=== PATIENT | female | born 1965 | race Caucasian/White ===

== ENCOUNTER 2019-01-20 14:39 | Inpatient (IN) | payer OTHER ==
[2019-01-20] VITALS (10 sets, daily range): BP systolic 94–116; BP diastolic 56–71; O2SAT 97
[~2019-01-20] VITALS: Ht 160 cm; Wt 126.8 kg
[~2019-01-20 14:39] MED LIST: ANOR1AER PO; BASA100I SC; BENA2CRE3 EXT; BUSP5TA PO; CETI10CH PO; CETI5SOL3 PO; CHOL50002 PO; CRES20TA2 PO; EYE; FAMO20TA PO; FISH1000 PO; FLON1SPR; FURO40TA2 PO; GLUC1CAP10 PO; INSUHUMDS SC; IPRA0.00 INH; MUCI60TA7 PO; MULTCAP PO; PROAAER10 INH; PURE500C5 PO; RANI150T PO; [UNRECOGNIZED DRUG - OTHER]; [UNRECOGNIZED DRUG - OTHER]
[2019-01-20 18:44] LABS: ABG BASE EXCESS -0.7 (-2.0-2.0); ABG HCO3 27.9 MEQ/L (22.0-26.0); ABG PARTIAL PRESSURE O2 62.4 mmHg (75.0-100.0); ABG STANDARD HCO3 23.7 MEQ/L (22.0-26.0); ABG TOTAL CO2 29.8 MEQ/L (22.0-29.0); ABG pH (ARTERIAL) 7.256 UNITS (7.350-7.450)
[2019-01-20 18:48] LABS: ABG PARTIAL PRESSURE CO2 64.1 mmHg (35.0-45.0)
[2019-01-20 19:11] LABS: BASO % 0.1 % (0.0-1.0); HEMATOCRIT 44.6 % (36.0-47.0); HEMOGLOBIN 12.9 g/dl (12.0-15.5); LYMPH % 1.6 % (24.0-44.0); MEAN CORPUSCULAR HEMOGLOBIN 22.6 pg (27.0-33.0); MEAN CORPUSCULAR HGB CONC 28.9 g/dl (32.0-36.5); MEAN CORPUSCULAR VOLUME 78.2 fl (80.0-96.0); MONO # 0.3 10^3/uL (0.0-0.8); MONO % 2.1 % (0.0-5.0); NEUTROPHILS # 13.5 10^3/uL (1.5-8.5); NEUTROPHILS % 95.6 % (36.0-66.0); PLATELET COUNT, AUTOMATED 102 10^3/uL (150-450); WHITE BLOOD COUNT 14.2 10^3/uL (4.0-10.0)
[2019-01-20] MEDS ORDERED: ACET1TAB55 PO (19:11)
[2019-01-20] MEDS ORDERED: [UNRECOGNIZED DRUG - CODE] IV (19:11)
[2019-01-20] MEDS ORDERED: FURO20TA2 PO (19:11)
[2019-01-20] MEDS ORDERED: NICO1DIS11 TD (19:11)
[2019-01-20] MEDS ORDERED: OXYB5TAB10 PO (19:11)
[2019-01-20] MEDS ORDERED: ALL10TAB29 PO (19:11)
[2019-01-20] MEDS ORDERED: LORA2CON5 PO (19:11)
[2019-01-20] MEDS ORDERED: ADME100I2 SC (19:11)
[2019-01-20] MEDS ORDERED: VENTAER INH (19:11)
[2019-01-20] MEDS ORDERED: BASA100I SC (19:11)
[2019-01-20] MEDS ORDERED: METH125VL IM (19:11)
[2019-01-20] MEDS ORDERED: XIID5DRO OU (19:11)
[2019-01-20] MEDS ORDERED: COMMENTS (19:14)
[2019-01-20] MEDS ORDERED: GLUCAGON FOR INJ 1 MG VIAL (J1610) SC PRN ×2 (19:15→20:15)
[2019-01-20] MEDS ORDERED: GLUCOSE 4 GM CHEW TABLET PO PRN ×2 (19:15→20:15)
[2019-01-20] MEDS ORDERED: DEXTROSE 50% 50 ML SYRINGE IV PRN ×2 (19:15→20:15)
[2019-01-20] MEDS ORDERED: ACETAMINOPHEN TAB 650MG DOSE (2X325MG) PO PRN (19:15)
[2019-01-20 19:28] LABS: INR 1.3; PROTHROMBIN TIME 15.9 SECONDS (11.8-14.0)
[2019-01-20 19:29] LABS: ALBUMIN 2.2 GM/DL (3.2-5.2); CALCIUM LEVEL 7.8 MG/DL (8.5-10.1); CREATININE FOR GFR 3.99 MG/DL (0.55-1.30); GLOMERULAR FILTRATION RATE 12.4 (>51); PHOSPHORUS LEVEL 5.1 MG/DL (2.5-4.9); POTASSIUM SERUM 5.5 MEQ/L (3.5-5.1)
[2019-01-20 19:29] LABS: LYMPH # 0.2 10^3/uL (1.5-5.0)
[2019-01-20 19:34] LABS: MAGNESIUM LEVEL 2.2 MG/DL (1.8-2.4)
--- NOTE | 2019-01-20 19:57 | REP ---
Portable chest, single AP view, the patient semi upright, 07:36 p.m.: There are no comparisons. There are confluent nodular densities throughout the lung liriano bilaterally. Cardiac size is enlarged. The queenie appear enlarged. Mediastinum and skeletal structures are unremarkable. Electronically Signed by Owen Chew MD 01/20/2019 07:48 P
[2019-01-20 20:04] LABS: ABG BASE EXCESS -1.3 (-2.0-2.0); ABG HCO3 25.2 MEQ/L (22.0-26.0); ABG PARTIAL PRESSURE CO2 49.5 mmHg (35.0-45.0); ABG PARTIAL PRESSURE O2 88.8 mmHg (75.0-100.0); ABG STANDARD HCO3 23.4 MEQ/L (22.0-26.0); ABG TOTAL CO2 26.7 MEQ/L (22.0-29.0); ABG pH (ARTERIAL) 7.325 UNITS (7.350-7.450)
[2019-01-20] MEDS: NS 1,000 ML IV SCH (20:11)
[2019-01-20] MEDS ORDERED: VANCOMYCIN HCL 1,000 MG, VIAL MATE ADAPTER 1 EACH in D5W 250 ML IV ONE (20:30)
--- NOTE | 2019-01-20 20:55 | HPEPDOC ---
General Date of Admission Jan 20, 2019 at 18:12 Date of Service: Jan 20, [address] Moreno of the nephrology service. Chief Complaint The patient is a 53-year-old female admitted with a reason for visit of Fluid Overload, Hyperkalemia. Source: Old records Exam Limitations: Clinical conditions Timing/Duration: Getting worse, This afternoon Severity: Severe Associated Symptoms: Unobtainable History of Present Illness This is a 53-year-old female who presented to an [facility]. She has a history of lvc-qbrlkfb-flycsaofa diabetes mellitus and chronic kidney disease. She had undergone evaluation by renal biopsy earlier this week. She [facility] the [facility] complaining of severe pain. She knows she also had some diarrhea. She had not taken her medications for several days. She was noted to have desaturations down to 63%. She was placed on O2 at 4 L/m and O2 sat were reported stabilized at 92%. Patient was found to have hyperkalemia with a serum potassium of 6. She was noted to have worsening renal function with a creatinine of 4; creatinine had been 1.8 in October. Brain natriuretic peptide was reported elevated up to 92,000. [facility] to our facility. Patient was accepted for placement into ICU. Home Medications Scheduled Amiodarone HCl (Amiodarone HCl) 50 Mg/1 Ml Vial, 150 MG IV DAILY, (Reported) GIVEN AT [facility] Ascorbic Acid (Vitamin C) 500 Mg Capsule.er, 500 MG PO DAILY, (Reported) Buspirone HCl (Buspirone HCl) 5 Mg Tablet, 5 MG PO BID, (Reported) Cetirizine HCl (Cetirizine HCl) 10 Mg Tablet, 10 MG PO DAILY, (Reported) Cholecalciferol (Vitamin D3) (Vitamin D3) 5,000 Unit Capsule, 5,000 UNIT PO DA LUISANA, (Reported) Famotidine (Famotidine) 20 Mg Tablet, 20 MG PO DAILY, (Reported) Furosemide (Furosemide) 20 Mg Tablet, 40 MG PO BID, (Reported) Gluc Kimble/Chondro Kimble A/Vit C/Mn (Glucosamine-Chondroitin Cap) 1 Each Capsule, 1 CAP PO DAILY, (Reported) Guaifenesin/Pseudoephedrne HCl (Mucinex D ER 600-60 mg Tablet) 1 Each Tab.er.12h, 1 TAB PO DAILY, (Reported) Insulin Glargine,Hum.rec.anlog (Basaglar Kwikpen U-100) 100 Unit/1 Ml Insuln.pen, 80 UNIT SC DAILY, (Reported) Insulin Glargine,Hum.rec.anlog (Basaglar Kwikpen U-100) 100 Unit/1 Ml Insuln.pen, 20 UNIT SC QPM, (Reported) Insulin Lispro (Admelog Solostar) 100 Unit/1 Ml Insuln.pen, 10 UNIT SC ACHS, (Reported) Lifitegrast (Xiidra) 5% Droperette, 1 DROP OU DAILY, (Reported) Lorazepam (Lorazepam) 2 Mg/1 Ml Oral.conc, 1 MG PO DAILY, (Reported) GIVEN ONE DOSE OF 1MG AT [facility] Methylprednisolone (Solu-Medrol 125 mg Vial) 125 Mg/2 Ml Vial, 125 MG IM ONCE, (Reported) GIVEN AT [facility] Multivitamin (Multivitamins) 1 Each Capsule, 1 CAP PO DAILY, (Reported) Nicotine (Nicotine Patch) 21 Mg/24 Hr Patch.td24, 1 PATCH TD DAILY, (Reported) Oxybutynin Chloride (Oxybutynin Chloride) 5 Mg Tablet, 5 MG PO BID, (Reported) Ranitidine HCl (Ranitidine HCl) 150 Mg Tablet, 1 TAB PO DAILY, (Reported) Rosuvastatin Calcium (Crestor) 20 Mg Tablet, 20 MG PO DAILY, (Reported) Umeclidinium Brm/Vilanterol Tr (Anoro Ellipta 62.5-25 Mcg INH) 1 Each Blst.w.dev, 1 INH PO DAILY, (Reported) Scheduled PRN Acetaminophen (Acetaminophen) 325 Mg Tablet, 650 MG PO Q4H PRN for PAIN / FEVER, (Reported) GIVEN AT [facility] Albuterol Sulfate (Ventolin Hfa) 18 Gm Hfa.aer.ad, 2 PUFF INH Q4H PRN for wheezing, (Reported) Fluticasone Propionate (Flonase Allergy Relief) 9.9 Ml [place].susp, 50 MCG NA for PRN, (Reported) Ipratropium/Albuterol Sulfate (Iprat-Albut 0.5-3(2.5) mg/3 ml) 3 Ml Ampul.neb, 1 VIAL INH Q4H PRN for SOB/WHEEZING, (Reported) GIVEN AT [facility] Miscellaneous Medications [Comments] , (Reported) MED REC DONE WITH TRANSFER PAPERWORK WELL EXTRENAL MED HISTORY. I CALLED AND TALKED TO THE NURSE AT [facility] HE SAID THAT SHE TOLD THE ER THERE SHE HADN'T TAKEN ANY MEDICATIONS BEFORE GOING IN. Allergies Coded Allergies: Penicillins (Verified Allergy, Intermediate, RASH, 01/20/19) Sulfa (Sulfonamide Antibiotics) (Verified Allergy, Intermediate, RASH, 01/20/19) amoxicillin (Verified Allergy, Intermediate, RASH, 01/20/19) ampicillin (Verified Allergy, Intermediate, RASH, 01/20/19) aspirin (Verified Allergy, Intermediate, RASH, 01/20/19) cefuroxime (Verified Allergy, Intermediate, RASH, 01/20/19) erythromycin base (Verified Allergy, Intermediate, RASH, 01/20/19) latex (Verified Allergy, Intermediate, RASH, 01/20/19) tetracycline (Verified Allergy, Intermediate, RASH, 01/20/19) Past Medical History Medical History Medical record review. Patient has history of tre-pzildlu-sjoueines diabetes mellitus, hypertension, dyslipidemia, polycythemia vera, COPD, chronic kidney disease, at least stage III, depression, nephrotic syndrome, obstructive sleep apnea. Surgical History Surgical history is not available in the medical record and we were unable to obtain it from the patient secondary to the patient being obtunded. Family History Family history is unobtainable from the patient or from the medical record due to the patient's diminished condition. Social History * Smoker: current smoker (by report, the patient is an active smoker) Alcohol: other (alcohol use is unknown) Drugs: other (drug use or drug use history is unknown) Other elements of her social history are unknown at this time A-FIB/CHADSVASC A-FIB History Current/History of A-Fib/PAF?: No Current PO Anticoag Therapy: No Review of Systems Other systems Review of systems is unobtainable at this time as the patient is obtunded. Also no family members available at this time. Physical Examination General Exam: Positive: Severe Distress, Other (the patient is obtunded and minimally responsive) Eye Exam: Positive: PERRLA, Other Eye Symptoms (she has remarkable scleral injection) ENT Exam: Positive: Atraumatic, Nares Patent, Other ENT (mucous membranes are dry from mouth breathing) Neck Exam: Positive: Supple (supple to passive motion); Negative: JVD, thyromegaly, +2 carotid pulse wo bruit, Lymphadenopathy, Other Chest Exam: Positive: Diminished, Other (the patient has an obstructive breathing pattern consistent with obstructive sleep apnea) Heart Exam: Positive: Rate Normal, Normal S1, Normal S2 Telemetry: Positive: No significant arrhythmia Abdomen Exam: Positive: Normal bowel sounds, Soft, Other (the patient has morbid central obesity); Negative: Tenderness, Hepatospenomegaly Extremity Exam: Positive: Edema (remarkably, the patient does not have significant pedal or leg edema, pedal pulses are readily palpable); Negative: Clubbing, Cyanosis, Normal pulses, Tenderness, Swelling, Other Skin Exam: Positive: Nl turgor and temperature; Negative: Breakdown, Lesion Neuro Exam: Positive: Other (the patient isn't minimally responsive to tactile stim to her feet) Psych Exam: Positive: Other (unable to assess as the patient is not awake, alert or conversant) Vital Signs Vital Signs Date Time Temp Pulse Resp B/P (MAP) Pulse Ox O2 Delivery O2 Flow Rate FiO2 01/20/19 20:00 65 94/56 (69) 94 50 01/20/19 19:00 BIPAP/CPAP 01/20/19 18:21 98.4 18 Laboratory Data Labs 24H Laboratory Tests 2 01/20/19 18:37: Blood Gas Bicarbonate Standard 23.7, Arterial Blood pH 7.256L, Arterial Blood Partial Pressure CO2 64.1*H, Arterial Blood Partial Pressure O2 62.4L, Arterial Blood Total CO2 29.8H, Arterial Blood HCO3 27.9H, Arterial Blood Base Excess - 0.7, Arterial Blood Oxygen Saturation 89.0L 01/20/19 18:58: Blood Urea Nitrogen 100H, Creatinine 3.99H, Sodium Level 128L, Potassium Level 5.5H, Chloride Level 93L, Carbon Dioxide Level 30, Anion Gap 5L, Glomerular Filtration Rate 12.4L, Calcium Level 7.8L, Phosphorus Level 5.1H, Albumin 2.2L 01/20/19 18:59: Immature Granulocyte % (Auto) 0.6, White Blood Count 14.2H, Red Blood Count 5.70H, Hemoglobin 12.9, Hematocrit 44.6, Mean Corpuscular Volume 78.2L, Mean Corpuscular Hemoglobin 22.6L, Mean Corpuscular Hemoglobin Concent 28.9L, Red Cell Distribution Width 20.1H, Platelet Count 102L, Neutrophils (%) (Auto) 95.6H, Lymphocytes (%) (Auto) 1.6L, Monocytes (%) (Auto) 2.1, Eosinophils (%) (Auto) 0.0, Basophils (%) (Auto) 0.1, Neutrophils # (Auto) 13.5H, Lymphocytes # (Auto) 0.2L, Monocytes # (Auto) 0.3, Eosinophils # (Auto) 0.0, Basophils # (Auto) 0.0, Nucleated Red Blood Cells % (auto) 0.1H, Lactic Acid Level 1.1, Magnesium Level 2.2, UV-Orb-E-Type Natriuretic Peptide [id number] 01/20/19 19:01: Prothrombin Time 15.9H, Prothromb Time International Ratio 1.30 01/20/19 19:58: Blood Gas Bicarbonate Standard 23.4, Arterial Blood pH 7.325L, Arterial Blood Partial Pressure CO2 49.5H, Arterial Blood Partial Pressure O2 88.8, Arterial Blood Total CO2 26.7, Arterial Blood HCO3 25.2, Arterial Blood Base Excess -1.3, Arterial Blood Oxygen Saturation 96.0 CBC/BMP Laboratory Tests 01/20/19 18:58 Anion Gap 5 L 01/20/19 18:59 Red Blood Count 5.70 H, Mean Corpuscular Volume 78.2 L, Mean Corpuscular Hemoglobin 22.6 L, Mean Corpuscular Hemoglobin Concent 28.9 L, Red Cell D istribution Width 20.1 H, Neutrophils (%) (Auto) 95.6 H, Lymphocytes (%) (Auto) 1.6 L, Monocytes (%) (Auto) 2.1, Eosinophils (%) (Auto) 0.0, Basophils (%) (Auto) 0.1, Neutrophils # (Auto) 13.5 H, Lymphocytes # (Auto) 0.2 L, Monocytes # (Auto) 0.3, Eosinophils # (Auto) 0.0, Basophils # (Auto) 0.0 Microbiology Microbiology 01/20/19 Blood Culture, Received Pending 01/20/19 Blood Culture, Received Pending Assessment/Plan 1. Acute hypoxic and hypercarbic respiratory failure. Chest x-ray shows nodular densities bilaterally that may be infiltrates. She also has remarkable congestion and cardiomegaly. Patient has been placed on BiPAP; settings are 14 and 7 with an FiO2 of 50% and a rate of 8. We have contacted the pulmonary service to help coordinate respiratory care. Patient has been placed on empiric antibiotics in the form of vancomycin in the presence of her multiple drug allergies. COPD, obstructive sleep apnea and probable pulmonary edema are contributory to her current poor pulmonary function. 2. Acute on chronic kidney disease. Patient had had known chronic kidney disease. She had undergone evaluation by renal biopsy. Per communication with the nephrology service pathology results are consistent with diabetic nephropathy. Decisions regarding possible hemodialysis will be deferred to the nephrology service. Current creatinine is 3.99. By report, she had a creatinine of 1.8 in October. 3. Hyperkalemia. Serum potassium was elevated at 6. Review of EKGs do not show peaked T waves or other altered waveforms. Rate remained 88-90. Other electrolyte abnormalities included hyponatremia with a serum sodium at 124. Patient did not receive any intervention for her elevated potassium at the outlying facility. We will recheck labs and respond accordingly. 4. COPD It is unknown whether the patient is on home O2 at baseline. We will make available nebulization treatments as needed; she was not noted to have any active wheezing. She is reported to have active tobacco use, and so we will make a nicotine patch available. 5. Txh-ewodggj-lxsdebure diabetes mellitus. Patient will be placed on sliding scale insulin for coverage for now. We will check a glycated hemoglobin in the morning. 6. Pulmonary edema with cardiomegaly. This raises concern for congestive heart failure. Patient did have an echocardiogram in 2018 showing an ejection fraction of 57%. However, given her current clinical condition and the appearance on chest x-ray we will recheck an echocardiogram. The patient is critically ill and required ICU placement. Bedside critical care is 1 hour. Patient is inpatient status and her anticipated length of stay is going to be greater than 2 midnights as it will take at least that long to fully stabilize her and correct her abnormalities. Plan / VTE VTE Prophylaxis Ordered?: Yes (the patient is receiving subcutaneous heparin) Plan Diet: Make NPO Activity: Bedrest Medications: Change to IV, Start Antibiotics Respiratory: Increase Oxygen, Other Respiratory (patient has been placed on BiPAP and we will continue to follow blood gases) Diagnostics: Check Labs, Repeat Labs in AM, Xrays Anticipated Discharge: Home With Services Advanced Directives: Health Care Proxy (HCP) (the patient remains full code until a healthcare proxy can be identified.) GURJIT SANCHEZ MD Jan 20, 2019 20:55
[2019-01-20] MEDS ORDERED: IPRATROPIUM 0.5MG/ALBUTEROL 2.5MG INH SOL UD 3ML (DUONEB)(J7620) NEB PRN (21:00)
[2019-01-20] MEDS ORDERED: HumaLOG INSULIN (NovoLOG) PER UNIT SC SCH (21:00)
[2019-01-20 21:35] LABS: CREATININE FOR GFR 4.1 MG/DL (0.55-1.30); POTASSIUM SERUM 5.8 MEQ/L (3.5-5.1)
[2019-01-20 21:36] LABS: ALBUMIN 2.1 GM/DL (3.2-5.2); CALCIUM LEVEL 7.8 MG/DL (8.5-10.1); PHOSPHORUS LEVEL 5.5 MG/DL (2.5-4.9)
[2019-01-20] MEDS: NICOTINE 14 MG/24 HR TRANSDERMAL TD SCH (21:46)
--- NOTE | 2019-01-20 21:49 | CR ---
DATE OF CONSULTATION: 01/20/2019 REASON FOR CONSULTATION: Acute renal failure superimposed on chronic kidney disease. HISTORY OF PRESENT ILLNESS Mrs. Banerjee is a 53-year-old morbidly obese female with known history of longstanding type 2 diabetes, hypertension, COPD with active smoking, obstructive sleep apnea, hyperlipidemia and chronic kidney disease. The patient had significant proteinuria due to which she underwent a kidney biopsy on Thursday at [facility]. Her kidney biopsy procedure was uneventful and she was discharged to home. Apparently she has not been feeling well since then and did not eat or drink well. She has informed multiple family members that she has not been feeling well and not eating or drinking well. She talked to her physician today Verona Mart, Nurse Practitioner who advised her to go to the emergency room if she is not feeling well. She did go to the emergency room at [facility] and in [facility] emergency room she was found to have acute renal failure and hyperkalemia. Her BUN is noticed to be 99 and creatinine 4.0. Potassium level was 6.0 and sodium 124. She is transferred to [facility] and admitted to intensive care unit. Apparently, shortly after arrival here she developed worsening of her mental status which was already ordered and she became more obtunded and has required noninvasive respiratory assistance. I was called shortly after her arrival here and have come to see her and she is already on BiPap on my arrival. The patient is not able to answer any questions at present. Her son and gbdkgtmm-cg-mei have arrived however, they do not have much information about what happened over last few days other than that she had some diarrhea and decreased appetite. In the emergency room, at [facility] she was noticed to have fever up to 101 degrees Fahrenheit. She had a chest x-ray which showed cardiomegaly and she was given some Solu-Medrol and nebs prior to transfer. Her initial blood gas on arrival here showed a pH of 7.26, pCO2 64 and pO2 62.4. She has been on BiPap. A chemistry was repeated here on arrival which showed sodium level 128, potassium 5.5, CO2 30, BUN 100 and creatinine 3.99. Glucose 270 and calcium 7.8. PAST MEDICAL AND SURGICAL HISTORY Significant for 1. Longstanding type 2 diabetes. 2. Hypertension. 3. Chronic kidney disease. 4. Obstructive sleep apnea and COPD with active smoking. 5. Hyperlipidemia. 6. Morbid obesity. MEDICATIONS Her home medications include Admelog insulin, Anoro Ellipta inhalation one daily, Basaglar insulin per sliding scale, Benadryl extended release, topical application cream as needed, cetirizine 10 mg 1 tablet daily, Crestor 20 mg daily, famotidine 20 mg twice a day, Flonase nasal spray daily, furosemide 40 mg twice a day, glucosamine and chondroitin tablet 1 daily, DuoNebs as needed four times a day, Mucinex 600 mg 1 tablet twice a day, multivitamin 1 tablet daily, nicotine transdermal system 14 mg one daily, oxybutynin 5 mg twice a day, vitamin C 500 mg daily, vitamin D 5000 units daily, buspirone 5 mg twice a day, and ranitidine 150 mg daily,. ALLERGIES: She has allergy to PENICILLIN, SULFA, AMOXICILLIN, AMPICILLIN, ASPIRIN, CEFUROXIME, ERYTHROMYCIN, TETRACYCLINE and LATEX. PERSONAL AND SOCIAL HISTORY The patient is and lives with her . She smokes actively about 1 pack a day and she does not have any history of drug or alcohol use. FAMILY HISTORY Negative for end-stage renal disease. REVIEW OF SYSTEMS The patient herself is not able to provide any information. She did have a kidney biopsy at [facility] on Thursday and was discharged to home. She had no complications during or immediately after the kidney biopsy. She has informed the emergency room at [facility] that she has not been eating and drinking well and also reported some diarrhea according to her family members. She had fever up to 101 degrees Fahrenheit today in the emergency room at [facility]. She was hypoxic over there on arrival with oxygen saturation 69% on arrival. No other pertinent information is available at this point. PHYSICAL EXAMINATION Morbidly obese lady laying in the bed with BiPap in place. Temperature right now is 98.4 degrees Fahrenheit, heart rate 64 per minute and respiratory rate is 20 per minute on the BiPap. Blood pressure 94/56 mmHg and oxygen saturation 94% on 50% oxygen on the BiPap. She is very obtunded and barely responds. She did open her eyes only once so far. She is not able to answer any questions. Neck veins do not seem to be any abnormally distended. Her oral mucosa is dry. Heart: Sounds are distant but without a pericardial friction rub. Lungs are diminished bilaterally. Abdomen: Obese and nontender. Bowel sounds present. Extremities: Have no cyanosis or clubbing. Neurologically she is obtunded and unable to answer any questions at present. LABORATORY DATA Her labs done at [facility] prior to transfer showed a sodium 124, potassium 6.0, CO2 31, chloride 92, glucose 223, BUN 99, creatinine 4.0, albumin 2.3, globulin 4.2, calcium 7.6, total bilirubin 0.9, AST 22, ALT 18, magnesium 2.0 and a D-dimer of 1930. WBC count 14.6, hemoglobin 13.4 and hematocrit 45.6. Here initial labs done at 06:58 p.m. showed sodium 128, potassium 5.5, CO2 30, BUN 100 and creatinine 3.99. A lactic acid level is 1.1, glucose 270, calcium 7.8, phosphorus 5.1, pro BNP level 14,087 and albumin 2.2. Initial blood gas before BiPap showed a pH of 7.25, pCO2 64 and pO2 62.4 with bicarb 23. Blood gas now done about an hour after the BiPap showed a pH of 7.32, pCO2 49.5, pO2 88.8 and bicarb 23. INR is 1.30. WBC count on CBC is 14.2, hemoglobin 12.9 and hematocrit 44.6. Platelets are 102. Portable chest x-ray done here showed bilateral confluent nodular densities throughout the lung liriano bilaterally. Cardiac size enlarged with portable film. PROBLEMS: 1. Acute renal failure superimposed on chronic kidney disease, most likely related to decreased oral intake and ongoing use of diuretic. She can also be possibly hypotensive and have some infection which could contribute to her acute renal failure. We will stop her diuretics and give her some gentle IV fluid hydration with normal saline 75 mL per hour. A Huitron catheter will be placed for monitoring of urine output. A renal ultrasound is being ordered for tomorrow morning to rule out any possibility of obstruction or perinephric hematoma. 2. Hyperkalemia, related to acute renal failure superimposed on chronic kidney disease. Most likely her hyperkalemia was worse due to respiratory acidosis and is likely to improve as her acidosis is improving. Her potassium has already improved from 6.0 down to 5.5. We will recheck her electrolytes in a couple of hours and again tomorrow morning. 3. Hyponatremia. This is mild and related to acute renal failure, diabetes and we are giving her normal saline. Electrolytes will be checked again tonight and tomorrow morning. 4. Respiratory failure and altered mentation. The patient did have some reported problems with local anesthetic, however, her kidney biopsy was done on Thursday and I do not believe that her mentation is altered because of the local anesthetic used for kidney biopsy 4 days ago. She has leukocytosis and also had fever which is more suggestive of infection. We will get a urinalysis after catheter is placed. I will also get a serum ammonia level to rule out any possibility of liver dysfunction. 5. Fever and leukocytosis. Probably respiratory infection versus UTI. I recommend broad-spectrum antibiotic until a source is identified. Thank you for involving me in the care of Mrs. Banerjee. I will follow her along with you.
[2019-01-20] MEDS: HEPARIN SOD (PORCINE) 5000 UNITS/ML VIAL SC SCH (21:56)
--- NOTE | 2019-01-20 22:16 | REPVR ---
PROCEDURE INFORMATION: Exam: US Retroperitoneal Limited, Kidneys Exam date and time: 01/20/2019 9:16 PM Clinical history: 53 years old, female; Abnormal findings; Abnormal lab test; Abnormal kidney function lab tests; Prior surgery; Surgery date: 3-7 days post-operative; Surgery type: Renal biopsy a few days ago; Additional info: Arf, recent kidney biopsy TECHNIQUE: Imaging protocol: Real-time ultrasound of the retroperitoneum with image documentation. Examination was focused on the kidneys. COMPARISON: No relevant prior studies available. FINDINGS: Limitations: Limited by patient's body habitus. Right kidney: 10.7 cm right kidney. No hydronephrosis or masses. Left kidney: 11.3 cm left kidney. No hydronephrosis or masses. Bladder: Bladder not seen. IMPRESSION: No acute abnormality. Electronically signed by: Krishna Cobian On 01/20/2019 22:15:45 PM
--- NOTE | 2019-01-20 22:38 | PHACANCOPD ---
PHARMACY VANCOMYCIN DOSING Pt Demographics Demographics Patient Age:53 , Weight:127.600 , Gender: female Adjusted Body Weight Date: 01/20/19, Adjusted Body Weight: Kg Events Past 24 Hours Events Past 24 Hours: NO: Dialysis, Diuretic Therapy, Change in CrCl, Fever, Elevation in WBC, Pending Diagnostics, Pending Procedures, Other Vancomycin Vancomycin Target Ranges: 15-20 mcg/ml Vancomycin Load Y/N: Yes Load Dose Date Time Vancomycin Load Dose: 2000mg Date: 01-21 Time: 0000 Vancomycin Dose Date: 01/20/19. Current Vancomycin Dose: [1000mg int.] Intermittent Dosing?: Yes Labs Labs Item Value Date Time White Blood Count 14.2 10^3/uL H 01/20/19 1859 Creatinine 4.10 MG/DL H 01/20/192106 Blood Urea Nitrogen 105 MG/DL H 01/20/192106 Glomerular Filtration Rate 12.0 L 01/20/192106 Vital Signs Label Value Date Time Patient Temperature 97.3 degrees F 01/20/191999 Temperature Source Temporal 01/20/191999 Micro Microbiology 01/20/19 Urine Culture, Received Pending 01/20/19 Blood Culture, Received Pending 01/20/19 Blood Culture, Received Pending Creatinine Clearance Date:01/20/19. Creatinine Clearance: . Pending Labs random 1011 in am Assessment and Plan Maintaining Current Dose?: Yes Reason for dose change: No Dose Change Pharmacist Note Pharmacist Note Date: 01/20/19. Pharmacist note:Will monitor and dose as needed. VERENICE HERNÁNDEZ [facility] Jan 20, 2019 22:38
[2019-01-20] MEDS ORDERED: VANCOMYCIN INTERMITTENT/PULSE DOSING BY CLINICAL PHARMACIST PER DOSING PROTOCOL XX SCH (22:45)
[2019-01-21] VITALS (13 sets, daily range): BP systolic 98–141; BP diastolic 57–76; O2SAT 92–96
[2019-01-21] MEDS ORDERED: VANCOMYCIN HCL 1,000 MG, VIAL MATE ADAPTER 1 EACH in D5W 250 ML IV ONE ×3
[2019-01-21] MEDS ORDERED: LevoFLOXacin IV 500 MG in IV 1 EA IV ONE (01:00)
[2019-01-21] MEDS: HumaLOG INSULIN (NovoLOG) PER UNIT SC SCH ×5 (01:13→21:00)
[2019-01-21] MEDS: ONDANSETRON 4MG/2ML VIAL (J2405) IV PRN ×4 (04:00→21:56)
[2019-01-21 04:52] LABS: HEMATOCRIT 43.7 % (36.0-47.0); HEMOGLOBIN 12.5 g/dl (12.0-15.5); MEAN CORPUSCULAR HEMOGLOBIN 22.2 pg (27.0-33.0); MEAN CORPUSCULAR HGB CONC 28.6 g/dl (32.0-36.5); MEAN CORPUSCULAR VOLUME 77.6 fl (80.0-96.0); RED BLOOD COUNT 5.63 10^6/uL (4.00-5.40); WHITE BLOOD COUNT 10.7 10^3/uL (4.0-10.0)
[2019-01-21 04:53] LABS: PLATELET COUNT, AUTOMATED 98 10^3/uL (150-450)
[2019-01-21 05:07] LABS: HEMOGLOBIN A1c 9.9 %
[2019-01-21 05:21] LABS: CALCIUM LEVEL 7.8 MG/DL (8.5-10.1); CREATININE FOR GFR 3.89 MG/DL (0.55-1.30); FREE T4 1.05 NG/DL (0.76-1.46); GLOMERULAR FILTRATION RATE 12.8 (>51); MAGNESIUM LEVEL 2.3 MG/DL (1.8-2.4); PHOSPHORUS LEVEL 6.7 MG/DL (2.5-4.9); POTASSIUM SERUM 5.3 MEQ/L (3.5-5.1); THYROID STIMULATING HORMONE 0.611 uIU/ML (0.358-3.740); VANCOMYCIN RANDOM 24.6 UG/ML
--- NOTE | 2019-01-21 05:33 | PHACANCOPD ---
PHARMACY VANCOMYCIN DOSING Pt Demographics Demographics Patient Age:53 , Weight:127.600 , Gender: female Adjusted Body Weight Date: 01/20/19, Adjusted Body Weight: Kg Events Past 24 Hours Events Past 24 Hours: NO: Dialysis, Diuretic Therapy, Change in CrCl, Fever, Elevation in WBC, Pending Diagnostics, Pending Procedures, Other Vancomycin Vancomycin Target Ranges: 15-20 mcg/ml Vancomycin Load Y/N: Yes Load Dose Date Time Vancomycin Load Dose: 2000mg Date: 01-21 Time: 0000 Vancomycin Dose Date: 01/20/19. Current Vancomycin Dose: [1000mg int.] Intermittent Dosing?: Yes Labs Labs Item Value Date Time White Blood Count 10.7 10^3/uL H 01/21/19 0416 Creatinine 3.89 MG/DL H 01/21/19 0416 Blood Urea Nitrogen 109 MG/DL H 01/21/19 0416 Glomerular Filtration Rate 12.8 L 01/21/19 0416 Random Vancomycin Level 24.6 UG/ML 01/21/19 0416 Vital Signs Label Value Date Time Patient Temperature 97.3 degrees F 01/21/19 0000 Temperature Source Temporal 01/21/19 0000 Micro Microbiology 01/20/19 Urine Culture, Received Pending 01/20/19 Blood Culture, Received Pending 01/20/19 Blood Culture, Received Pending Creatinine Clearance Date:01/20/19. Creatinine Clearance: . Pending Labs random 10-12 in am Assessment and Plan Maintaining Current Dose?: Yes Reason for dose change: No Dose Change Pharmacist Note Pharmacist Note Date: 01/21/19. Pharmacist note:Random of 24.6 is above target range. Patient to recieve no dose today. Will continue to monitor and dose as needed. VERENICE HERNÁNDEZ PHARMACY Jan 21, 2019 05:33
[2019-01-21] MEDS: HEPARIN SOD (PORCINE) 5000 UNITS/ML VIAL SC SCH ×3 (05:42→21:15)
[2019-01-21 06:08] LABS: ABG BASE EXCESS -0.3 (-2.0-2.0); ABG HCO3 26.8 MEQ/L (22.0-26.0); ABG O2 SATURATION 96.9 % (95.0-99.0); ABG PARTIAL PRESSURE CO2 54.2 mmHg (35.0-45.0); ABG PARTIAL PRESSURE O2 92.6 mmHg (75.0-100.0); ABG STANDARD HCO3 24.2 MEQ/L (22.0-26.0); ABG TOTAL CO2 28.5 MEQ/L (22.0-29.0); ABG pH (ARTERIAL) 7.312 UNITS (7.350-7.450)
[2019-01-21] MEDS ORDERED: HumaLOG INSULIN (NovoLOG) PER UNIT SC SCH (07:30)
[2019-01-21] MEDS: ASCORBIC ACID 500 MG TAB PO SCH (09:00)
[2019-01-21] MEDS ORDERED: FAMOTIDINE 20 MG TAB PO SCH ×2 (09:00→22:15)
[2019-01-21] MEDS: FLUTICASONE PROP 0.05% NASAL SPRAY 16 GM (FLONASE) SCH (09:00)
[2019-01-21] MEDS: oxyBUTYnin 5 MG TAB PO SCH ×2 (09:00→19:55)
[2019-01-21] MEDS: LEVEMIR (INSULIN DETEMIR) 1 UNITS/0.01ML SC SCH ×2 (09:43→20:05)
[2019-01-21] MEDS: NICOTINE 14 MG/24 HR TRANSDERMAL TD SCH (09:44)
[2019-01-21] MEDS: busPIRone 5 MG TAB PO SCH ×2 (09:44→19:55)
[2019-01-21] MEDS: ROSUVASTATIN 10 MG TAB (CRESTOR) PO SCH (09:44)
[2019-01-21] MEDS: VITAMIN D 1,000 INTERNATIONAL UNITS TABLET PO SCH (09:44)
[2019-01-21] MEDS: NS 1,000 ML IV SCH (09:45)
[2019-01-21] MEDS: guaiFENesin ER 600 MG TAB PO SCH ×2 (09:45→19:55)
[2019-01-21] MEDS: CETIRIZINE (ZyrTEC) 10 MG TAB PO SCH (09:45)
[2019-01-21] MEDS: PROMETHAZINE INJ 25 MG/ML VIAL (J2550) IV PRN ×2 (11:58→17:53)
--- NOTE | 2019-01-21 16:29 | IPNPDOC ---
Text Note Date of Service The patient was seen on 01/21/19. NOTE SUBJECTIVE: The patient has made remarkable improvement overnight. She is now awake and conversant and we have been able to wean her FiO2 somewhat. She does complain of nausea and vomiting. Patient was admitted with acute hypoxic and hypercarbic respiratory failure and hyperkalemia. She had acute on chronic renal failure; dehydration was partially contributory. OBJECTIVE: Please see vital signs below Physical exam: HENT: Neck is supple. She does not have any adenopathy. Oral mucosa is moist. Scleral injection is resolved. Cardiovascular: Regular rate and rhythm with a normal S1 and S2 and no murmur. Respiratory: Patient is currently clear to auscultation with no active cough or obstructive breathing pattern. Abdomen: Soft, nontender, nondistended, has remarkable morbid central obesity. Extremities: No peripheral edema, pedal pulses are palpable. Neuro: No focal neuromotor or sensory deficit. Psych: Cognition is generally intact for her age; judgment and insight are somewhat diminished. ASSESSMENT/PLAN: 1. Acute hypoxic and hypercarbic respiratory failure. These appear to have improved significantly after the patient being on BiPAP overnight; patient does have underlying history of obstructive sleep apnea. We are weaning the FiO2. She uses while awake. Additional history is that she has recently been placed on oxygen at home at 2 L/m at night. She is expectant of part II of a sleep study on February 14; this is to determine settings for home BiPAP. Other contributory factors are that the patient is still an active smoker. She is receiving a nicotine patch. She also has underlying COPD and is receiving nebulization treatments as needed. #2. Acute on chronic kidney disease. She had had known chronic kidney disease. She underwent evaluation by renal biopsy with results consistent with diabetic nephropathy. Creatinine is "stable" at 3.89. Ultrasound does not reveal unusual changes to her kidneys were complications such as postbiopsy hematoma or other injury. 3. Hyperkalemia. The patient's potassium continues to improve. It has come down to 5.3. He is receiving some normal saline for correction of her hyponatremia. Other electrol yte abnormality. His hypophosphatemia with a serum phosphorus is 6.7. Serum calcium was measured to be 7.8, but corrects to 9.4, taking into account the serum albumin. 4. COPD She does not appear to be having an acute exacerbation but nebulization treatments are available. 5. Inx-pjnyycz-niraubyxd diabetes mellitus. We are restoring the patient's home insulin regimen inclusive of Lantus. We have also continued sliding scale insulin for coverage. Of interest glycated hemoglobin is 9.9. 6. Cardiomegaly. There is concern for congestive heart failure in this patient given her presentation. Echocardiogram has been obtained and report is pending. 7. Bacteremia. Patient is shown to have blood cultures positive for gram-negative rods. Patient had already received vancomycin in response to her leukocytosis and additionally has received Levaquin. Antibiotics can be de-escalated once we know id entification and sensitivities. We will monitor the patient again overnight in the ICU maintaining the BiPAP for sleep. We are hopeful of that being able to transition her out of the unit tomorrow. VS,Fishbone, I+O VS, Fishbone, I+O Laboratory Tests 01/20/19 18:58 Anion Gap 5 L 01/20/19 18:59 Red Blood Count 5.70 H, Mean Corpuscular Volume 78.2 L, Mean Corpuscular Hemoglobin 22.6 L, Mean Corpuscular Hemoglobin Concent 28.9 L, Red Cell Distribution Width 20.1 H, Neutrophils (%) (Auto) 95.6 H, Lymphocytes (%) (Auto) 1.6 L, Monocytes (%) (Auto) 2.1, Eosinophils (%) (Auto) 0.0, Basophils (%) (Auto) 0.1, Neutrophils # (Auto) 13.5 H, Lymphocytes # (Auto) 0.2 L, Monocytes # (Auto) 0.3, Eosinophils # (Auto) 0.0, Basophils # (Auto) 0.0 01/20/19 21:07 Anion Gap 12 01/21/19 04:16 Anion Gap 9, Red Blood Count 5.63 H, Mean Corpuscular Volume 77.6 L, Mean Corpuscular Hemoglobin 22.2 L, Mean Corpuscular Hemoglobin Concent 28.6 L, Red Cell Distribution Width 20.1 H Vital Signs Date Time Temp Pulse Resp B/P (MAP) Pulse Ox O2 Delivery O2 Flow Rate FiO2 01/21/19 15:30 40 01/21/19 15:23 97.2 72 141/76 (97) 93 01/21/19 13:50 22 4.0 01/21/19 04:11 BIPAP/CPAP I&O- Last 24 Hours up to 6 AM 01/21/19 06:00 Intake Total 1045 ml Output Total 505 ml Balance 540 ml GURJIT SANCHEZ MD Jan 21, 2019 16:29
[2019-01-21] MEDS ORDERED: raNITIdine SYRUP 150 MG/10 ML UDC PO SCH (21:00)
[2019-01-21] MEDS ORDERED: PILL CUTTER 1 EACH XX PRN (22:45)
[2019-01-22] VITALS (9 sets, daily range): BP systolic 112–129; BP diastolic 59–70; O2SAT 94–96
[2019-01-22 05:11] LABS: BASO % 0.2 % (0.0-1.0); HEMATOCRIT 46.9 % (36.0-47.0); HEMOGLOBIN 13.6 g/dl (12.0-15.5); LYMPH # 0.3 10^3/uL (1.5-5.0); LYMPH % 2.4 % (24.0-44.0); MEAN CORPUSCULAR HEMOGLOBIN 22.4 pg (27.0-33.0); MEAN CORPUSCULAR VOLUME 77.4 fl (80.0-96.0); MONO % 6.9 % (0.0-5.0); NEUTROPHILS # 12.6 10^3/uL (1.5-8.5); NEUTROPHILS % 90.1 % (36.0-66.0); RED BLOOD COUNT 6.06 10^6/uL (4.00-5.40); WHITE BLOOD COUNT 13.9 10^3/uL (4.0-10.0)
[2019-01-22 05:18] LABS: PLATELET COUNT, AUTOMATED 91 10^3/uL (150-450)
[2019-01-22 05:37] LABS: ALBUMIN 1.9 GM/DL (3.2-5.2); CALCIUM LEVEL 8.4 MG/DL (8.5-10.1); CREATININE FOR GFR 3.27 MG/DL (0.55-1.30); GLOMERULAR FILTRATION RATE 15.6 (>51); PHOSPHORUS LEVEL 5.2 MG/DL (2.5-4.9); POTASSIUM SERUM 4.8 MEQ/L (3.5-5.1); VANCOMYCIN RANDOM 15.6 UG/ML
--- NOTE | 2019-01-22 05:47 | PHACANCOPD ---
PHARMACY VANCOMYCIN DOSING Pt Demographics Demographics Patient Age:53 , Weight:128.600 , Gender: female Adjusted Body Weight Date: 01/20/19, Adjusted Body Weight: Kg Events Past 24 Hours Events Past 24 Hours: NO: Dialysis, Diuretic Therapy, Change in CrCl, Fever, Elevation in WBC, Pending Diagnostics, Pending Procedures, Other Vancomycin Vancomycin Target Ranges: 15-20 mcg/ml Vancomycin Load Y/N: Yes Load Dose Date Time Vancomycin Load Dose: 2000mg Date: 01-21 Time: 0000 Vancomycin Dose Date: 01/22/19. Current Vancomycin Dose: [1000mg int.] Intermittent Dosing?: Yes Labs Labs Item Value Date Time White Blood Count 13.9 10^3/uL H 01/22/19 0454 Glomerular Filtration Rate 15.6 L 01/22/19 0454 Creatinine 3.27 MG/DL H 01/22/19 0454 Blood Urea Nitrogen 119 MG/DL H 01/22/19 0454 Random Vancomycin Level 15.6 UG/ML 01/22/19 0454 Vital Signs Label Value Date Time Patient Temperature 97.6 degrees F 01/22/19 0000 Temperature Source Temporal 01/22/19 0000 Micro Microbiology 01/20/19 Urine Culture - Final, Complete Escherichia Coli 01/20/19 Blood Culture - Preliminary, Resulted 01/20/19 Blood Culture - Preliminary, Resulted Creatinine Clearance Date:01/20/19. Creatinine Clearance: [~17]. Pending Labs random 10-13 in am Assessment and Plan Maintaining Current Dose?: Yes Reason for dose change: No Dose Change Pharmacist Note Pharmacist Note Date: 01/22/19. Pharmacist note:Random of 15.6 is within target range. Patient to receive 1000mg vancomycin today @0900. Will continue to monitor and dose as needed. VERENICE HERNÁNDEZ PHARMACY Jan 22, 2019 05:46
[2019-01-22] MEDS: HEPARIN SOD (PORCINE) 5000 UNITS/ML VIAL SC SCH ×3 (05:57→21:56)
[2019-01-22] MEDS ORDERED: VANCOMYCIN HCL 1,000 MG, VIAL MATE ADAPTER 1 EACH in D5W 250 ML IV ONE (09:00)
[2019-01-22] MEDS: SENNA 8.6 MG TAB (SENOKOT) PO SCH ×2 (09:00→21:56)
[2019-01-22] MEDS ORDERED: AZTREONAM 1 GM in D5W MINI-BAG PLUS 50 ML IV SCH (10:15)
[2019-01-22] MEDS: ONDANSETRON 4MG/2ML VIAL (J2405) IV PRN (10:15)
[2019-01-22] MEDS: FLUTICASONE PROP 0.05% NASAL SPRAY 16 GM (FLONASE) SCH (10:15)
[2019-01-22] MEDS: VITAMIN D 1,000 INTERNATIONAL UNITS TABLET PO SCH (10:17)
[2019-01-22] MEDS: ROSUVASTATIN 10 MG TAB (CRESTOR) PO SCH (10:17)
[2019-01-22] MEDS: busPIRone 5 MG TAB PO SCH ×2 (10:17→21:56)
[2019-01-22] MEDS: CETIRIZINE (ZyrTEC) 10 MG TAB PO SCH (10:18)
[2019-01-22] MEDS: ASCORBIC ACID 500 MG TAB PO SCH (10:18)
[2019-01-22] MEDS: oxyBUTYnin 5 MG TAB PO SCH ×2 (10:18→21:56)
[2019-01-22] MEDS: FAMOTIDINE 20 MG TAB PO SCH (10:18)
[2019-01-22] MEDS: LEVEMIR (INSULIN DETEMIR) 1 UNITS/0.01ML SC SCH ×2 (10:19→21:56)
[2019-01-22] MEDS: guaiFENesin ER 600 MG TAB PO SCH ×2 (10:19→21:56)
[2019-01-22] MEDS: NICOTINE 21MG/24HR 1 EA TRANSDERMAL TD SCH (10:56)
[2019-01-22] MEDS: HumaLOG INSULIN (NovoLOG) PER UNIT SC SCH ×4 (10:57→21:00)
[2019-01-22] MEDS ORDERED: AZTREONAM 0.5 GM in D5W 50 ML IV SCH (11:00)
--- NOTE | 2019-01-22 11:49 | IPNPDOC ---
Text Note Date of Service The patient was seen on 01/22/19. NOTE SUBJECTIVE: Ms. Banerjee has again done well overnight. She was maintained on nighttime BiPAP. She slept well and has not had any residual respiratory distress. She has not had any further GI distress. OBJECTIVE: See vital signs below Physical exam: HENT: Neck is supple. She does not have any adenopathy. Oral mucosa is moist. Scleral injection is resolved, she notes considerable postnasal drainage Cardiovascular: Regular rate and rhythm with a normal S1 and S2 and no murmur. Respiratory: Patient is currently clear to auscultation with no active cough or obstructive breathing pattern, Abdomen: Soft, nontender, nondistended, has remarkable morbid central obesity. Extremities: No peripheral edema, pedal pulses are palpable. Neuro: No focal neuromotor or sensory deficit. Psych: Cognition is generally intact for her age; judgment and insight are somewhat diminished. ASSESSMENT/PLAN: 1. Acute hypoxic and hypercarbic respiratory failure. These appear to have improved significantly after the patient being on BiPAP overnight; patient does have underlying history of obstructive sleep apnea. We are weaning the FiO2 she uses while awake. Additional history is that she has recently been placed on oxygen at home at 2 L/m at night. She is expectant of part II of a sleep study on February 14; this is to determine settings for home BiPAP. The patient acknowledges the benefits of nighttime BiPAP; she is concerned about her interim time at home without it before she undergoes further testing. #2. Acute on chronic kidney disease. She had had known chronic kidney disease. She underwent evaluation by renal biopsy with results consistent with diabetic nephropathy. Creatinine is "stable" at 3.27. Ultrasound does not reveal unusual changes to her kidneys or complications such as postbiopsy hematoma or other injury. 3. Hyperkalemia. Serum potassium has come down to 4.8, so her hyperkalemia is resolved. She is receiving some normal saline for correction of her hyponatremia. Other electrolyte abnormality includes hypophosphatemia with a serum phosphorus of 5.2. Serum calcium has normalized to 8.4. 4. COPD She does not appear to be having an acute exacerbation but nebulization treatments are available. She is also still an active smoker and so nicotine patch has been made available as well. 5. Rpj-jwhyrua-ymibjcedb diabetes mellitus. We are restoring the patient's home insulin regimen inclusive of Lantus. We have also continued sliding scale insulin for coverage. Of interest glycated hemoglobin is 9.9. Patient will benefit from additional diabetes diet education; she'll need renal diet education as well. 6. Cardiomegaly. There is concern for congestive heart failure in this patient given her presentation. Echocardiogram has been obtained and report is pending. 7. Bacteremia. Patient is shown to have blood and urine cultures positive for gram-negative rods. Urine culture is positive for Escherichia coli. Patient had already received vancomycin in response to her leukocytosis and additionally had received Levaquin. Leukocytosis is resolving. Patient has been placed on IV aztreonam for now given sensitivities and her multiple drug allergies. The patient is sufficiently medically stable for transition into the PCU. We will continue with nighttime BiPAP. VS,Fishbone, I+O VS, Fishbone, I+O Laboratory Tests 01/22/19 04:54 Red Blood Count 6.06 H, Mean Corpuscular Volume 77.4 L, Mean Corpuscular Hemoglobin 22.4 L, Mean Corpuscular Hemoglobin Concent 29.0 L, Red Cell Distribution Width 20.2 H, Neutrophils (%) (Auto) 90.1 H, Lymphocytes (%) (Auto) 2.4 L, Monocytes (%) (Auto) 6.9 H, Eosinophils (%) (Auto) 0.0, Basophils (%) (Auto) 0.2, Neutrophils # (Auto) 12.6 H, Lymphocytes # (Auto) 0.3 L, Monocytes # (Auto) 1.0 H, Eosinophils # (Auto) 0.0, Basophils # (Auto) 0.0, Anion Gap 6 L Vital Signs Date Time Temp Pulse Resp B/P (MAP) Pulse Ox O2 Delivery O2 Flow Rate FiO2 01/22/19 04:20 40 01/22/19 04:20 96 BIPAP/CPAP 01/22/19 04:00 98.1 74 20 126/67 (86) 01/21/19 20:00 3.0 I&O- Last 24 Hours up to 6 AM 01/22/19 06:00 Intake Total 1265 ml Output Total 925 ml Balance 340 ml GURJIT SANCHEZ MD Jan 22, 2019 11:49
[2019-01-22] MEDS: AZTREONAM 0.5 GM in D5W 50 ML IV SCH ×2 (12:57→21:55)
[2019-01-22] MEDS ORDERED: FUROSEMIDE 40 MG/4 ML VIAL (J1940) IV ONE (15:00)
--- NOTE | 2019-01-22 15:52 | IPN ---
DATE: 01/22/2019 SUBJECTIVE: The patient was seen and examined the bedside today morning. She was on bilevel positive airway pressure (BiPAP) overnight because of shortness of breath. There is slight improvement in the renal function today with a creatinine of 3.2. Last 24-hour events were noted. The patient was given a dose of Levaquin yesterday because of sepsis. She is growing two out of two blood cultures positive for gram-negative rods. Urine culture just came back positive today with Escherichia (E) coli, which is resistant to Levaquin. The patient continues to have leukocytosis. She does report moderate persistent shortness of breath. She denies any fevers or chills at this time. OBJECTIVE: Vital signs: Temperature is 98.1 degrees Fahrenheit, blood pressure is 126/67, pulse is 74, respiratory rate of 20, saturating 96% on the BiPAP at 40% FiO2 Intake and output: Urine output recorded 885 mL yesterday, 500 mL so far today since overnight. Weight in the bed scale is not available. PHYSICAL EXAMINATION: GENERAL: The patient is awake, alert, oriented times three, lying in bed in mild respiratory distress. HEAD AND NECK: Extraocular muscles intact. Pupils equally round and reactive to light. Mucous membranes are moist. Neck is supple. She has a moderately elevated jugular venous distention (JVD). CARDIOVASCULAR: S1, S2. Trace edema of the bilateral lower extremities. RESPIRATORY: Decreased breath sounds at the bases with mild amount moderate amount of inspiratory crackles bilaterally at the bases. ABDOMEN: Soft, obese. Positive bowel sounds. She has a mild left-sided costovertebral angle (CVA) tenderness where she had the kidney biopsy done a few days ago. MUSCULOSKELETAL: No clubbing or cyanosis. Pulses are 2+. CENTRAL NERVOUS SYSTEM: No focal deficit. Power is 5/5 in all extremities. She moves extremities and follows commands. SKIN: No rashes or ulcers were noted. LABORATORY REVIEW: CBC showed WBC of 13.9, hemoglobin is 13.6, platelets are 91. BMP showed sodium 132, potassium 4.8, chloride 97, bicarbonate 29, BUN 119, creatinine is 3.2, glucose 99, calcium 8.4, phosphorus is 5.2. Albumin 1.9. Toxicology: Random vancomycin level was 15.6. Microbiology: Urine culture is growing E. coli, which is resistant to Levaquin. It is sensitive to aztreonam and meropenem. Blood cultures: Two out of two are growing gram-negative rods. CURRENT INPATIENT MEDICATIONS: The patient's medications were all reviewed by me. She has been started on aztreonam 0.5 grams IV every 8 hours. She was also given a dose of vancomycin today morning. I have stopped the vitamin C. No other change in the medications today as compared with yesterday. ASSESSMENT AND PLAN: 1. Sepsis secondary to E. coli urinary tract infection and E. coli bacteremia. The patient was given Levaquin a day ago, but E. coli is resistant to Levaquin. Aztreonam was ordered today morning. She continues to have leukocytosis and renal failure, but hopefully with the initiation of aztreonam she should clinically start improving over the next 24-48 hours. The patient is not requiring pressors, and she does not need IV fluids at this time, because her volume status is decompensated and she clinically looks fluid overloaded. 2. Acute renal failure superimposed on chronic kidney disease. The patient has a biopsy-proven diabetic nephropathy at baseline with acute kidney injury secondary to sepsis secondary to a urinary tract infection. The patient is being treated with IV antibiotics for E. coli urinary tract infection. No need of IV fluid hydration. Renal function is slowly improving. 3. Acute decompensated congestive heart failure. Patient's baseline echocardiogram is not available in the system. Looking at her history, most likely she has diastolic dysfunction. She was on diuretics as outpatient. She had an elevated brain natriuretic peptide (BNP) in the hospital. The patient was given IV fluid hydration because of sepsis. At this time clinically she looks volume overloaded. I am going to give her a dose of Lasix 40 mg IV. Further diarrhetic adjustment will be done after the results of echocardiogram are available. 4. Hyponatremia. The patient has hypervolemic hyponatremia. Sodium is improving at 132. Lasix would further help improve the patient's sodium level. 5. Hyperkalemia. Potassium level is improving with improvement in the urine output and renal function. 6. Hyperphosphatemia. Phosphorus level is improving from 6.7 to 5.2. It is secondary to acute renal failure. Phosphorus level will get better once the renal function improves. Total critical care time spent in the management of this patient today morning in the ICU was 50 minutes. That does not include any procedures.
[2019-01-22] MEDS: DOCUSATE SODIUM 100 MG CAP PO SCH (21:56)
[2019-01-23] VITALS (7 sets, daily range): BP systolic 100–131; BP diastolic 56–81
[2019-01-23 05:16] LABS: HEMATOCRIT 47.4 % (36.0-47.0); HEMOGLOBIN 13.4 g/dl (12.0-15.5); MEAN CORPUSCULAR HEMOGLOBIN 21.9 pg (27.0-33.0); MEAN CORPUSCULAR HGB CONC 28.3 g/dl (32.0-36.5); MEAN CORPUSCULAR VOLUME 77.6 fl (80.0-96.0); RED BLOOD COUNT 6.11 10^6/uL (4.00-5.40)
[2019-01-23 05:23] LABS: PLATELET COUNT, AUTOMATED 88 10^3/uL (150-450)
[2019-01-23] MEDS: HEPARIN SOD (PORCINE) 5000 UNITS/ML VIAL SC SCH ×4 (05:26→21:28)
[2019-01-23] MEDS: AZTREONAM 0.5 GM in D5W 50 ML IV SCH ×3 (05:27→20:29)
[2019-01-23 05:32] LABS: ALBUMIN 1.9 GM/DL (3.2-5.2); CALCIUM LEVEL 8.4 MG/DL (8.5-10.1); CREATININE FOR GFR 3.2 MG/DL (0.55-1.30); PHOSPHORUS LEVEL 4.4 MG/DL (2.5-4.9); POTASSIUM SERUM 4.3 MEQ/L (3.5-5.1)
--- NOTE | 2019-01-23 06:16 | ECHO ---
DATE OF PROCEDURE: 01/21/2019 REFERRING PROVIDER: Dr. Marce Iqbal PATIENT LOCATION: Room 3201 REASON FOR ECHOCARDIOGRAM: Heart failure, unspecified. 2D MEASUREMENTS: IVS: 0.9 cm LV: 5.2 cm LVPW: 1.0 cm LA: 3.6 cm Aorta: 3.5 cm IVC: 2.8 cm DOPPLER MEASUREMENTS: Peak velocity across the aortic valve: 1.4 m/s Peak velocity across the LVOT: 0.94 m/s Mitral E: 0.93 Mitral A: 0.86 with a ratio of 1.1 Maximum tricuspid valve velocity: 3.1 m/s 2D COMMENTS: 1. Normal left ventricular size, wall thickness and normal global left ventricular systolic function. The estimated left ventricular systolic ejection fraction is 55-60%. 2. Normal left atrium. The right atrium and the right ventricle appear to be mildly enlarged. The right ventricular free wall also appeared to be hypokinetic, with systolic dysfunction. 3. The atrial septum appeared to be normal without evidence of defect or shunt. 4. Normal aortic root. 5. Trace pericardial effusion noted, no evidence of cardiac tamponade. 6. The aortic valve and the mitral valve, as well as the tricuspid valve, appear to be normal. The pulmonic valve appeared to be normal in limited views. The proximal pulmonary artery branches were not well visualized. 7. The inferior vena cava was dilated, central venous pressure is most likely elevated. DOPPLER: It detects mild tricuspid regurgitation noted in limited views and mild pulmonic regurgitation. The calculated pulmonary artery systolic pressure varies between 40-50 mmHg. Abnormal relaxation pattern was noted across the mitral valve annulus consistent with features of grade 2 left ventricular diastolic dysfunction, left ventricular end diastolic pressure may be elevated. IMPRESSION: 1. Normal global left ventricular systolic function. There were some features of left ventricular diastolic dysfunction, grade 2. 2. Mild tricuspid regurgitations with moderate pulmonary hypertension and dilated right heart chambers. More severe pulmonary hypertension could not be ruled out. 3. Mild pulmonic regurgitation. 4. Trace pericardial effusion. 5. Not mentioned above, the study was technically limited due to poor acoustic window. [facility]
[2019-01-23] MEDS: HumaLOG INSULIN (NovoLOG) PER UNIT SC SCH ×4 (07:30→20:28)
[2019-01-23] MEDS: LEVEMIR (INSULIN DETEMIR) 1 UNITS/0.01ML SC SCH ×2 (08:25→20:29)
[2019-01-23] MEDS: DOCUSATE SODIUM 100 MG CAP PO SCH ×2 (08:35→20:29)
[2019-01-23] MEDS: ROSUVASTATIN 10 MG TAB (CRESTOR) PO SCH (08:35)
[2019-01-23] MEDS: oxyBUTYnin 5 MG TAB PO SCH ×2 (08:35→20:29)
[2019-01-23] MEDS: guaiFENesin ER 600 MG TAB PO SCH ×2 (08:36→20:29)
[2019-01-23] MEDS: FAMOTIDINE 20 MG TAB PO SCH (08:36)
[2019-01-23] MEDS: SENNA 8.6 MG TAB (SENOKOT) PO SCH ×2 (08:37→20:29)
[2019-01-23] MEDS: CETIRIZINE (ZyrTEC) 10 MG TAB PO SCH (08:37)
[2019-01-23] MEDS: FLUTICASONE PROP 0.05% NASAL SPRAY 16 GM (FLONASE) SCH (08:38)
[2019-01-23] MEDS: VITAMIN D 1,000 INTERNATIONAL UNITS TABLET PO SCH (08:38)
[2019-01-23] MEDS: NICOTINE 21MG/24HR 1 EA TRANSDERMAL TD SCH (08:38)
[2019-01-23] MEDS: FUROSEMIDE 40 MG/4 ML VIAL (J1940) IV SCH ×2 (09:00→18:19)
[2019-01-23] MEDS: busPIRone 5 MG TAB PO SCH ×2 (10:44→20:29)
[2019-01-23] MEDS: ONDANSETRON 4MG/2ML VIAL (J2405) IV PRN (14:32)
--- NOTE | 2019-01-23 16:46 | IPN ---
DATE: 01/23/2019 SUBJECTIVE: Patient was seen and examined at the bedside today morning. Patient is afebrile and hemodynamically stable. She was downgraded from the intensive care unit (ICU) overnight. There is no significant improvement in the renal function at this time. Creatinine is still fluctuating at 3.2. She was given a dose of Lasix yesterday and she reports her shortness of breath did improve with the dose of Lasix. Her blood cultures also came back positive yesterday with Escherichia (E) coli. She was already started on aztreonam yesterday in the afternoon. OBJECTIVE: VITAL SIGNS: Temperature is 97.9 degrees Fahrenheit, blood pressure 108/61, pulse is 70, respiratory rate of 78, saturating 90% on nasal cannula at 2 liters. INTAKE AND OUTPUT: Urine output recorded is 1.4 liters yesterday, 1 liter so far today since overnight. Weight in the bed scale is 127.5 kg. PHYSICAL EXAMINATION: GENERAL: Patient is awake, alert, oriented times three, morbidly obese, laying in the bed in no apparent distress. HEAD AND NECK EXAM: Extraocular muscles intact. Pupils equally round and reactive to light. Mucous membranes are moist. Neck is supple. There is moderately elevated jugular venous distention (JVD). CARDIOVASCULAR: S1, S2. Trace edema of the bilateral lower extremities. RESPIRATORY: Decreased breath sounds at the bases with crackles at the bases on deep inspiration. ABDOMEN: Soft. Positive bowel sounds. Nontender. No organomegaly. MUSCULOSKELETAL: No clubbing or cyanosis. Pulses are 2+. CENTRAL NERVOUS SYSTEM (BALING MACHINE TENDER): No focal deficit. Power is 5/5 in all extremities. SKIN: No rashes or ulcers. PSYCHIATRIC: Normal mood and affect. LABORATORY REVIEW: Complete blood count (CBC) showed a WBC of 12, hemoglobin is 13.4, platelets of 88. Basic metabolic panel (BMP) showed sodium 133, potassium 4.3, chloride 99, bicarbonate 31, BUN 116, creatinine is 3.2, calcium is 8.4, phosphorus 4.4, albumin 1.9. MICROBIOLOGY: Blood cultures 2 out of 2 and urine cultures all growing Escherichia (E) coli. CURRENT INPATIENT MEDICATIONS: Patient's medications were all reviewed by me. Patient was given Lasix 40 mg intravenous (IV) one dose yesterday. I have started her on Lasix 40 mg IV twice a day today now. She continues to be on IV aztreonam. Vancomycin was stopped. No other change in the medications today as compared with yesterday. ASSESSMENT AND PLAN: 1. Acute renal failure superimposed on chronic kidney disease stage IV. Patient has biopsy-proven diabetic nephropathy. Recent renal failure secondary to sepsis and urinary tract infection along with bacteremia, although the patient is responding to the diuretics. However, there is no significant improvement in the creatinine. She continues to have high BUN levels. I will continue to monitor for renal improvement. There is no urgent need of hemodialysis at this time. 2. Escherichia (E) coli urinary tract infection and Escherichia (E) coli bacteremia. Patient continues to be on IV aztreonam. Vancomycin has been stopped. Repeat blood cultures will be done tomorrow morning. 3. Acute decompensated diastolic congestive heart failure. Patient has diastolic dysfunction on the recent echocardiogram. I have started her on Lasix 40 mg IV twice a day. 4. Hyponatremia. Patient has hypervolemic hyponatremia. Sodium level would improve with diuresis. 5. Diabetes mellitus type 2, insulin dependent. Patient is currently on insulin Levemir and insulin sliding scale coverage. Avoid use of metformin. She is not a candidate for angiotensin-converting enzyme (MARJ) inhibitor or angiotensin receptor blockers because of her renal failure, although she has a diagnosed diabetic nephropathy on renal biopsy. [facility]
--- NOTE | 2019-01-23 17:26 | ECGEPIP ---
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
--- NOTE | 2019-01-23 18:42 | IPNPDOC ---
Text Note Date of Service The patient was seen on 01/23/19. NOTE SUBJECTIVE: Patient describes herself as stated better clinically. She believes she is breathing better and has decreased malaise. Patient was admitted with acute hypercarbic and hypoxic respiratory failure. She was also in acute on chronic renal failure. OBJECTIVE: Please see vital signs below Physical exam: HENT: Neck is supple. She does not have any adenopathy. Oral mucosa is moist. Scleral injection is resolved, she notes considerable postnasal drainage, She is having occasional tiny amounts of blood from her nasal passages from dry air Cardiovascular: Regular rate and rhythm with a normal S1 and S2 and no murmur. Respiratory: Patient is currently clear to auscultation with no active cough or obstructive breathing pattern, Abdomen: Soft, nontender, nondistended, has remarkable morbid central obesity. Extremities: No peripheral edema, pedal pulses are palpable. Neuro: No focal neuromotor or sensory deficit. Psych: Cognition is generally intact for her age; judgment and insight are somewhat diminished. ASSESSMENT/PLAN: 1. Acute hypoxic and hypercarbic respiratory failure. These appear to have improved significantly after the patient being on BiPAP overnight; patient does have underlying history of obstructive sleep apnea. We are weaning the FiO2 she uses while awake. Additional history is that she has recently been placed on oxygen at home at 2 L/m at night. She is expectant of part II of a sleep study on February 14; this is to determine settings for home BiPAP. The patient acknowledges the benefits of nighttime BiPAP; she is concerned about her interim time at home without it before she undergoes further testing. She has been having some nasal irritation with small amount of bleeding from the dry air thru her nasal cannula, I will give her nasal saline spray or gel. #2. Acute on chronic kidney disease. She had had known chronic kidney disease. She underwent evaluation by renal biopsy with results consistent with diabetic nephropathy. Creatinine is "stable" at 3.2. Ultrasound does not reveal unusual changes to her kidneys or complications such as postbiopsy hematoma or other injury. She does not currently have pain at her biopsy site. 3. Hyperkalemia. Serum potassium has come down to 4.8, so her hyperkalemia is resolved. She had received normal saline for correction of her hyponatremia. Other electrolyte abnormality included hypophosphatemia with a serum phosphorus of 5.2; this has resolved as well. Serum calcium has normalized to 8.4. 4. COPD She does not appear to be having an acute exacerbation but nebulization treatments are available. She is also still an active smoker and so nicotine patch has been made available as well. She has mentioned wanting a cigarette but we are strongly counseling her to not smoke again. 5. Zjv-qockfbo-fpldwzsql diabetes mellitus. We are restoring the patient's home insulin regimen inclusive of Lantus. We have also continued sliding scale insulin for coverage. Of interest glycated hemoglobin is 9.9. Patient has received additional diabetes and renal diet education for nutrition services. 6. Cardiomegaly. There was concern for congestive heart failure in this patient given her presentation. Echocardiogram shows preserved ejection fraction of 55-60%. However, there is pulmonary arterial systolic pressure of 40-50 mmHg consistent with pulmonary hypertension and grade 2 diastolic dysfunction. 7. Bacteremia. Patient is shown to have blood and urine cultures positive for gram-negative rods. Urine culture is positive for Escherichia coli. Blood cultures are confirmed for Escherichia coli as well. Patient had already received vancomycin in response to her leukocytosis and additionally had received Levaquin. Leukocytosis is resolving. Patient has been placed on IV aztreonam for now given sensitivities and her multiple drug allergies. Clarification: Patient can be said to have met criteria for sepsis at admission. Although she did not have elevated lactic acid, she had metabolic encephalopathy, acute respiratory failure and leukocytosis. VS,Fishbone, I+O VS, Fishbone, I+O Laboratory Tests 01/23/19 04:54 Red Blood Count 6.11 H, Mean Corpuscular Volume 77.6 L, Mean Corpuscular Hemoglobin 21.9 L, Mean Corpuscular Hemoglobin Concent 28.3 L, Red Cell Distribution Width 20.3 H, Anion Gap 3 L Vital Signs Date Time Temp Pulse Resp B/P (MAP) Pulse Ox O2 Delivery O2 Flow Rate FiO2 01/23/19 16:00 98.4 85 17 131/63 (85) 91 3.0 01/22/19 04:20 40 01/22/19 04:20 BIPAP/CPAP I&O- Last 24 Hours up to 6 AM 01/23/19 06:00 Intake Total 1690 ml Output Total 1550 ml Balance 140 ml GURJIT SANCHEZ MD Jan 23, 2019 18:42
[2019-01-24] MEDS ORDERED: diphenhydrAMINE CREAM 30GM TOP PRN (03:15)
[2019-01-24 04:00] VITALS: BP 124/61
[2019-01-24] MEDS: AZTREONAM 0.5 GM in D5W 50 ML IV SCH ×3 (05:39→21:33)
[2019-01-24 06:08] LABS: BASO % 0.3 % (0.0-1.0); EOS # 0.1 10^3/uL (0.0-0.5); EOS % 1.3 % (0.0-3.0); HEMATOCRIT 45.2 % (36.0-47.0); HEMOGLOBIN 12.8 g/dl (12.0-15.5); LYMPH # 0.9 10^3/uL (1.5-5.0); LYMPH % 8.3 % (24.0-44.0); MEAN CORPUSCULAR HEMOGLOBIN 22.1 pg (27.0-33.0); MEAN CORPUSCULAR HGB CONC 28.3 g/dl (32.0-36.5); MEAN CORPUSCULAR VOLUME 77.9 fl (80.0-96.0); MONO % 9.5 % (0.0-5.0); NEUTROPHILS # 8.2 10^3/uL (1.5-8.5); WHITE BLOOD COUNT 10.2 10^3/uL (4.0-10.0)
[2019-01-24 06:14] LABS: PLATELET COUNT, AUTOMATED 93 10^3/uL (150-450)
[2019-01-24 07:29] LABS: ALBUMIN 1.9 GM/DL (3.2-5.2); CREATININE FOR GFR 2.87 MG/DL (0.55-1.30); GLOMERULAR FILTRATION RATE 18.2 (>51); PHOSPHORUS LEVEL 3.3 MG/DL (2.5-4.9); POTASSIUM SERUM 4.9 MEQ/L (3.5-5.1)
[2019-01-24] MEDS: HumaLOG INSULIN (NovoLOG) PER UNIT SC SCH ×4 (07:45→20:34)
[2019-01-24 08:00] VITALS: BP 115/67
[2019-01-24] MEDS: HEPARIN SOD (PORCINE) 5000 UNITS/ML VIAL SC SCH ×3 (08:57→21:31)
[2019-01-24] MEDS: CETIRIZINE (ZyrTEC) 10 MG TAB PO SCH (08:58)
[2019-01-24] MEDS: DOCUSATE SODIUM 100 MG CAP PO SCH ×2 (08:58→21:00)
[2019-01-24] MEDS: VITAMIN D 1,000 INTERNATIONAL UNITS TABLET PO SCH (08:58)
[2019-01-24] MEDS: FUROSEMIDE 40 MG/4 ML VIAL (J1940) IV SCH ×2 (08:58→16:55)
[2019-01-24] MEDS: guaiFENesin ER 600 MG TAB PO SCH ×2 (08:58→21:32)
[2019-01-24] MEDS: busPIRone 5 MG TAB PO SCH ×2 (08:58→21:32)
[2019-01-24] MEDS: NICOTINE 21MG/24HR 1 EA TRANSDERMAL TD SCH (08:59)
[2019-01-24] MEDS: oxyBUTYnin 5 MG TAB PO SCH ×2 (08:59→21:32)
[2019-01-24] MEDS: FLUTICASONE PROP 0.05% NASAL SPRAY 16 GM (FLONASE) SCH (08:59)
[2019-01-24] MEDS: FAMOTIDINE 20 MG TAB PO SCH (08:59)
[2019-01-24] MEDS: ROSUVASTATIN 10 MG TAB (CRESTOR) PO SCH (08:59)
[2019-01-24] MEDS: SENNA 8.6 MG TAB (SENOKOT) PO SCH ×3 (09:00→21:32)
[2019-01-24] MEDS: LEVEMIR (INSULIN DETEMIR) 1 UNITS/0.01ML SC SCH ×2 (10:25→21:32)
[2019-01-24 12:00] VITALS: BP 136/77
--- NOTE | 2019-01-24 13:27 | IPNPDOC ---
Date Seen The patient was seen on 01/24/19. Progress Note NEPHROLOGY SERVICE PROGRESS NOTE: SUBJECTIVE: The patient was seen today and examined at the bedside. She states she is feeling better and is not having any pain. No difficulty breathing or urinating. She has been eating and drinking well. She seems to be improving. OBJECTIVE PHYSICAL EXAMINATION: VITAL SIGNS: Please see below. GENERAL APPEARANCE: laying in bed, appearing stated age and in no acute distress HEENT: EOMI, PERRLA, neck is supple with no lymphadenopathy or thyromegaly RESPIRATORY: Faint crackles heard at the bases bilaterally, otherwise no adventitious breath sounds can be heard CARDIOVASCULAR: JVD is mildly elevated at 10-12 cm; RRR without any murmurs/rubs/gallops ABDOMEN: soft, obese, nontender to palpation without any organomegaly or masses, +BS EXTREMITIES: some trace pitting edema up to calves bilaterally, no clubbing or cyanosis otherwise NEUROLOGICAL: No focal deficits appreciated PSYCHIATRIC: normal mood, normal affect LABORATORY DATA, IMAGING STUDIES, MICROBIOLOGY: Please see below. ASSESSMENT AND PLAN: This is a 53 YO F with history of diabetic nephropathy admitted with hypercarbic respiratory acidosis now resolved found to have E. coli bacteremia and acute renal failure that appears to be resolving. PROBLEMS: 1. Acute renal failure 2/2 CKD IV: Recent kidney biopsy demonstrates diabetic nephropathy -Patient's Cr down to 2.87 from 3.2 yesterday -ARF likely 2/2 UTI and E. coli bacteremia, but patient is on appropriate antibiotics -BUN still elevated but improving -We will continue to monitor her improvement. If uremia does not improve she may need to start dialysis. 2. E. coli UTI and bacteremia: -Patient spiked another fever last night of 100.3 -s/p Vancomycin -Patient was started on IV Aztreonam -Repeat blood cultures 3. Acute decompensated dCHF: -Continue IV lasix 40mg BID -Urine output has been only minimal -Strict fluid restriction to 1500ml/day 4. Hypervolemic hyponatremia: -Likely to improve with diuresis. Sodium is 134 today 5. DM2: -Continue insulin regimen (Levemir and SSI coverage) -BGL has been somewhat low. Consider decrease in Levemir. DISPOSITION: Pending improvement in her uremia and Cr she could be transitioned to oral Abx and discharged with plan to follow up with nephrology in the office outpatient. Would keep for at least one more day for observation. VS, I&O, 24H, Fishbone Vital Signs/I&O Vital Signs Date Time Temp Pulse Resp B/P (MAP) Pulse Ox O2 Delivery O2 Flow Rate FiO2 01/24/19 12:00 97.8 76 18 136/77 (96) 94 3.0 01/22/19 04:20 40 01/22/19 04:20 BIPAP/CPAP I&O- Last 24 Hours up to 6 AM 01/24/19 06:00 Intake Total 1180 ml Output Total 1125 ml Balance 55 ml Laboratory Data 24H LABS Laboratory Tests 2 01/23/19 17:25: Bedside Glucose (Misc Panel) 205H 01/24/19 05:39: Immature Granulocyte % (Auto) 0.6, White Blood Count 10.2H, Red Blood Count 5.80H, Hemoglobin 12.8, Hematocrit 45.2, Mean Corpuscular Volume 77.9L, Mean Corpuscular Hemoglobin 22.1L, Mean Corpuscular Hemoglobin Concent 28.3L, Red Cell Distribution Width 20.7H, Platelet Count 93L, Neutrophils (%) (Auto) 80.0H, Lymphocytes (%) (Auto) 8.3L, Monocytes (%) (Auto) 9.5H, Eosinophils (%) (Auto) 1.3, Basophils (%) (Auto) 0.3, Neutrophils # (Auto) 8.2, Lymphocytes # (Auto) 0.9L, Monocytes # (Auto) 1.0H, Eosinophils # (Auto) 0.1, Basophils # (Auto) 0.0, Nucleated Red Blood Cells % (auto) 0.0, Immature Platelet Fraction 1.7 01/24/19 06:47: Blood Urea Nitrogen 115H, Creatinine 2.87H, Sodium Level 134L, Potassium Level 4.9, Chloride Level 99, Carbon Dioxide Level 31, Anion Gap 4L, Glomerular Fi ltration Rate 18.2L, Calcium Level 8.0L, Phosphorus Level 3.3#, Albumin 1.9L CBC/BMP Laboratory Tests 01/24/19 05:39 Red Blood Count 5.80 H, Mean Corpuscular Volume 77.9 L, Mean Corpuscular Hemoglobin 22.1 L, Mean Corpuscular Hemoglobin Concent 28.3 L, Red Cell Distribution Width 20.7 H, Neutrophils (%) (Auto) 80.0 H, Lymphocytes (%) (Auto) 8.3 L, Monocytes (%) (Auto) 9.5 H, Eosinophils (%) (Auto) 1.3, Basophils (%) (Auto) 0.3, Neutrophils # (Auto) 8.2, Lymphocytes # (Auto) 0.9 L, Monocytes # (Auto) 1.0 H, Eosinophils # (Auto) 0.1, Basophils # (Auto) 0.0 01/24/19 06:47 Anion Gap 4 L Microbiology Microbiology 01/24/19 Blood Culture, Received Pending 01/20/19 Urine Culture - Final, Complete Escherichia Coli 01/20/19 Blood Culture - Final, Complete Escherichia Coli 01/20/19 Blood Culture - Final, Complete Escherichia Coli GME ATTESTATION GME ATTESTATION My faculty preceptor for this patient encounter was physically present during the encounter and was fully available. All aspects of the patient interview, examination, medical decision making process, and medical care plan development were reviewed and approved by the faculty preceptor. The faculty preceptor is aware and concurs with the plan as stated in the body of this note and will attest to such by his/her cosignature. KEILA CHÁVEZ MD Jan 24, 2019 13:27
[2019-01-24 16:00] VITALS: BP 145/79
--- NOTE | 2019-01-24 19:36 | IPNPDOC ---
Text Note Date of Service The patient was seen on 01/24/19. NOTE SUBJECTIVE: The patient continues to improve daily. With adjustments to her basal bolus insulin regimen she has resolved from morning hypoglycemia. She does not have productive cough this morning. She does not have shortness of breath. She would like to be more ambulatory. OBJECTIVE: Please see vital signs below--she did have a MAXIMUM TEMPERATURE of 100.3 overnight. Physical exam: HENT: Neck is supple. She does not have any adenopathy. Oral mucosa is moist. Scleral injection is resolved, she notes considerable postnasal drainage, She is having occasional tiny amounts of blood from her nasal passages from dry air Cardiovascular: Regular rate and rhythm with a normal S1 and S2 and no murmur. Respiratory: Patient is currently clear to auscultation with no active cough or obstructive breathing pattern, Abdomen: Soft, nontender, nondistended, has remarkable morbid central obesity. Extremities: No peripheral edema, pedal pulses are palpable. Neuro: No focal neuromotor or sensory deficit. ASSESSMENT/PLAN: 1. Acute hypoxic and hypercarbic respiratory failure. These appear to have improved significantly after the patient being on BiPAP overnight; patient does have underlying history of obstructive sleep apnea. We are weaning the FiO2 she uses while awake. Additional history is that she has recently been placed on oxygen at home at 2 L/m at night. She is expectant of part II of a sleep study on February 14; this is to determine settings for home BiPAP. The patient acknowledges the benefits of nighttime BiPAP; she is concerned about her interim time at home without it before she undergoes further testing. She has been having some nasal irritation with small amount of bleeding from the dry air thru her nasal cannula, I have given her saline nasal spray. 2. Acute on chronic kidney disease. She had had known chronic kidney disease. She underwent evaluation by renal biopsy with results consistent with diabetic nephropathy. Creatinine is improved at 2.87. Ultrasound does not reveal unusual changes to her kidneys or complications such as postbiopsy hematoma or other injury. She does not currently have pain at her biopsy site. 3. COPD She does not appear to be having an acute exacerbation but nebulization treatments are available. She is also still an active smoker and so nicotine patch has been made available as well. She has mentioned wanting a cigarette but we are strongly counseling her to not smoke again. 4. Smw-mupcszi-kaoefoggk diabetes mellitus. We are restoring the patient's home insulin regimen inclusive of Lantus. We have also continued sliding scale insulin for coverage. Of interest glycated hemoglobin is 9.9. Patient has received additional diabetes and renal diet education for nutrition services. Of interest, we have had to decrease the patient's Lantus dosing due to hypoglycemia. 5. Cardiomegaly. There was concern for congestive heart failure in this patient given her presentation. Echocardiogram shows preserved ejection fraction of 55-60%. However, there is pulmonary arterial systolic pressure of 40-50 mmHg consistent with pulmonary hypertension and grade 2 diastolic dysfunction. 6. Bacteremia. Patient is shown to have blood and urine cultures positive for gram-negative rods. Urine culture is positive for Escherichia coli. Blood cultures are confirmed for Escherichia coli as well. Patient had already received vancomycin in response to her leukocytosis and additionally had received Levaquin. Leukoc ytosis is resolving. Patient has been placed on IV aztreonam for now given sensitivities and her multiple drug allergies. We will again review sensitivities for transition to oral antibiotics. Clarification: Patient can be said to have met criteria for sepsis at admission. Although she did not have elevated lactic acid, she had metabolic encephalopathy, acute respiratory failure and leukocytosis. VS,Fishbone, I+O VS, Fishbone, I+O Laboratory Tests 01/24/19 05:39 Red Blood Count 5.80 H, Mean Corpuscular Volume 77.9 L, Mean Corpuscular Hemoglobin 22.1 L, Mean Corpuscular Hemoglobin Concent 28.3 L, Red Cell Distribution Width 20.7 H, Neutrophils (%) (Auto) 80.0 H, Lymphocytes (%) (Auto) 8.3 L, Monocytes (%) (Auto) 9.5 H, Eosinophils (%) (Auto) 1.3, Basophils (%) (Auto) 0.3, Neutrophils # (Auto) 8.2, Lymphocytes # (Auto) 0.9 L, Monocytes # (Auto) 1.0 H, Eosinophils # (Auto) 0.1, Basophils # (Auto) 0.0 01/24/19 06:47 Anion Gap 4 L Vital Signs Date Time Temp Pulse Resp B/P (MAP) Pulse Ox O2 Delivery O2 Flow Rate FiO2 01/24/19 16:45 3.0 01/24/19 16:00 97.8 75 18 145/79 (101) 92 10//19 04:20 40 01/22/19 04:20 BIPAP/CPAP I&O- Last 24 Hours up to 6 AM 01/24/19 06:00 Intake Total 1180 ml Output Total 1125 ml Balance 55 ml GURJIT SANCHEZ MD Jan 24, 2019 19:36
[2019-01-24 20:00] VITALS: BP_SYST 117; BP_SYST 139; BP_DIAS 59; BP_DIAS 74
[2019-01-24] MEDS: SODIUM CHLORIDE NASAL 0.65% SPRAY BTL (OCEAN) PRN (21:31)
[2019-01-24 23:59] VITALS: BP 140/67
[2019-01-25 02:52] VITALS: BP 160/90
[2019-01-25 04:00] VITALS: BP 146/75
[2019-01-25] MEDS: HEPARIN SOD (PORCINE) 5000 UNITS/ML VIAL SC SCH (05:19)
[2019-01-25] MEDS: AZTREONAM 0.5 GM in D5W 50 ML IV SCH ×2 (05:19→12:05)
[2019-01-25 05:46] LABS: HEMATOCRIT 46.5 % (36.0-47.0); HEMOGLOBIN 13.2 g/dl (12.0-15.5); MEAN CORPUSCULAR HEMOGLOBIN 22.3 pg (27.0-33.0); MEAN CORPUSCULAR HGB CONC 28.4 g/dl (32.0-36.5); MEAN CORPUSCULAR VOLUME 78.4 fl (80.0-96.0); PLATELET COUNT, AUTOMATED 121 10^3/uL (150-450); RED BLOOD COUNT 5.93 10^6/uL (4.00-5.40); WHITE BLOOD COUNT 8.7 10^3/uL (4.0-10.0)
[2019-01-25 06:06] LABS: ALBUMIN 1.8 GM/DL (3.2-5.2); CALCIUM LEVEL 8.2 MG/DL (8.5-10.1); CREATININE FOR GFR 2.64 MG/DL (0.55-1.30); PHOSPHORUS LEVEL 3.2 MG/DL (2.5-4.9); POTASSIUM SERUM 4.6 MEQ/L (3.5-5.1)
[2019-01-25 08:00] VITALS: BP 145/72
[2019-01-25] MEDS: SODIUM CHLORIDE NASAL 0.65% SPRAY BTL (OCEAN) PRN (09:04)
[2019-01-25] MEDS: FUROSEMIDE 40 MG/4 ML VIAL (J1940) IV SCH (09:04)
[2019-01-25] MEDS: NICOTINE 21MG/24HR 1 EA TRANSDERMAL TD SCH (09:04)
[2019-01-25] MEDS: busPIRone 5 MG TAB PO SCH (09:05)
[2019-01-25] MEDS: FAMOTIDINE 20 MG TAB PO SCH (09:05)
[2019-01-25] MEDS: VITAMIN D 1,000 INTERNATIONAL UNITS TABLET PO SCH (09:05)
[2019-01-25] MEDS: DOCUSATE SODIUM 100 MG CAP PO SCH (09:05)
[2019-01-25] MEDS: oxyBUTYnin 5 MG TAB PO SCH (09:05)
[2019-01-25] MEDS: ROSUVASTATIN 10 MG TAB (CRESTOR) PO SCH (09:05)
[2019-01-25] MEDS: guaiFENesin ER 600 MG TAB PO SCH (09:06)
[2019-01-25] MEDS: CETIRIZINE (ZyrTEC) 10 MG TAB PO SCH (09:06)
[2019-01-25] MEDS: HumaLOG INSULIN (NovoLOG) PER UNIT SC SCH ×2 (09:06→12:00)
[2019-01-25] MEDS: SENNA 8.6 MG TAB (SENOKOT) PO SCH (09:06)
[2019-01-25] MEDS: FLUTICASONE PROP 0.05% NASAL SPRAY 16 GM (FLONASE) SCH (09:07)
[2019-01-25] MEDS: LEVEMIR (INSULIN DETEMIR) 1 UNITS/0.01ML SC SCH (09:07)
[2019-01-25] MEDS ORDERED: NICO1DIS11 TD (10:16)
[2019-01-25] MEDS ORDERED: MUCI600T31 PO (10:16)
[2019-01-25] MEDS ORDERED: BASA100I SC (10:16)
[2019-01-25] MEDS ORDERED: [UNRECOGNIZED DRUG - CODE] IV ×2 (10:16→14:01)
[2019-01-25] MEDS ORDERED: COLA100C5 PO ×2 (10:17→14:24)
[2019-01-25] MEDS ORDERED: SENN18TA PO (10:17)
[2019-01-25] MEDS ORDERED: Sodium Chloride Nasal Spray (10:17)
--- NOTE | 2019-01-25 10:30 | DS.PDOC ---
Discharge Summary General Date of Admission Jan 20, 2019 at 18:12 Date of Discharge January 25, 2019 Discharge Summary PROCEDURES PERFORMED DURING STAY: [None]. ADMITTING DIAGNOSES: 1. . DISCHARGE DIAGNOSES: 1. . COMPLICATIONS/CHIEF COMPLAINT: Fluid Overload, Hyperkalemia. HISTORY OF PRESENT ILLNESS: . HOSPITAL COURSE: . DISCHARGE MEDICATIONS: Please see below. ALLERGIES: Please see below. PHYSICAL EXAMINATION ON DISCHARGE: VITAL SIGNS: Please see below. GENERAL: HEENT: NECK: CARDIOVASCULAR EXAMINATION: RESPIRATORY EXAMINATION: ABDOMINAL EXAMINATION: EXTREMITIES: SKIN: NEUROLOGICAL EXAMINATION: PSYCHIATRIC EXAMINATION: LABORATORY DATA: Please see below. IMAGING: PROGNOSIS: ACTIVITY: [As tolerated]. DIET: DISCHARGE PLAN: DISPOSITION: . DISCHARGE INSTRUCTIONS: 1. . ITEMS TO FOLLOWUP ON ON OUTPATIENT: 1. . DISCHARGE CONDITION: [Stable]. TIME SPENT ON DISCHARGE: Greater than minutes. Vital Signs/I&Os Vital Signs Date Time Temp Pulse Resp B/P (MAP) Pulse Ox O2 Delivery O2 Flow Rate FiO2 01/25/19 08:00 3.0 01/25/19 08:00 96.3 77 22 145/72 (96) 96 01/22/19 04:20 40 01/22/19 04:20 BIPAP/CPAP I&O- Last 24 Hours up to 6 AM 01/25/19 05:59 Intake Total 1570 ml Output Total 3650 ml Balance -2080 ml Laboratory Data Labs 24H Laboratory Tests 2 01/24/19 11:47: Bedside Glucose (Misc Panel) 223H 01/24/19 17:08: Bedside Glucose (Misc Panel) 254H 01/24/19 20:22: Bedside Glucose (Misc Panel) 242H 01/25/19 05:12: Nucleated Red Blood Cells % (auto) 0.2H, Anion Gap 5L, Glomerular Filtration Rate 20.0L, Blood Urea Nitrogen 110H, Creatinine 2.64H, Sodium Level 139, Potassium Level 4.6, Chloride Level 101, Carbon Dioxide Level 33H, Calcium Level 8.2L, Phosphorus Level 3.2, Albumin 1.8L CBC/BMP Laboratory Tests 01/25/19 05:12 Red Blood Count 5.93 H, Mean Corpuscular Volume 78.4 L, Mean Corpuscular Hem oglobin 22.3 L, Mean Corpuscular Hemoglobin Concent 28.4 L, Red Cell Distribution Width 20.2 H, Calcium Level 8.2 L FSBS Laboratory Tests Test 01/24/19 11:47 01/24/19 17:08 01/24/19 20:22 Range/Units Bedside Glucose (Misc Panel) 223 254 242 70-105 MG/DL Microbiology Microbiology 01/24/19 Blood Culture - Preliminary, Resulted No growth after 24 hours . All specim... 01/20/19 Urine Culture - Final, Complete Escherichia Coli 01/20/19 Blood Culture - Final, Complete Escherichia Coli 01/20/19 Blood Culture - Final, Complete Escherichia Coli Discharge Medications Scheduled Ascorbic Acid (Vitamin C) 500 Mg Capsule.er, 500 MG PO DAILY, (Reported) Aztreonam (Aztreonam) 1 Gm Vial, 0.5 GM IV Q8H CAN BE ADMINISTERED AT [facility] Buspirone HCl (Buspirone HCl) 5 Mg Tablet, 5 MG PO BID, (Reported) Cetirizine HCl (Cetirizine HCl) 10 Mg Tablet, 10 MG PO DAILY, (Reported) Cholecalciferol (Vitamin D3) (Vitamin D3) 5,000 Unit Capsule, 5,000 UNIT PO DAILY, (Reported) Docusate Sodium (Colace) 100 Mg Capsule, 100 MG PO BID Famotidine (Famotidine) 20 Mg Tablet, 20 MG PO DAILY, (Reported) Furosemide (Furosemide) 20 Mg Tablet, 40 MG PO BID, (Reported) Gluc Kimble/Chondro Kimble A/Vit C/Mn (Glucosamine-Chondroitin Cap) 1 Each Capsule, 1 CAP PO DAILY, (Reported) Guaifenesin (Mucinex) 600 Mg Tab.er.12h, 600 MG PO BID Guaifenesin/Pseudoephedrne HCl (Mucinex D ER 600-60 mg Tablet) 1 Each Tab.er.12h, 1 TAB PO DAILY, (Reported) Insulin Glargine,Hum.rec.anlog (Basaglar Kwikpen U-100) 100 Unit/1 Ml Insuln.pen, 20 UNIT SC QPM, (Reported) Insulin Glargine,Hum.rec.anlog (Basaglar Kwikpen U-100) 100 Unit/1 Ml Insuln.pen, 40 UNIT SC DAILY Insulin Lispro (Admelog Solostar) 100 Unit/1 Ml Insuln.pen, 10 UNIT SC ACHS, (Reported) Lifitegrast (Xiidra) 5% Droperette, 1 DROP OU DAILY, (Reported) Multivitamin (Multivitamins) 1 Each Capsule, 1 CAP PO DAILY, (Reported) Nicotine (Nicotine Patch) 21 Mg/24 Hr Patch.td24, 1 PATCH TD DAILY Oxybutynin Chloride (Oxybutynin Chloride) 5 Mg Tablet, 5 MG PO BID, (Reported) Ranitidine HCl (Ranitidine HCl) 150 Mg Tablet, 1 TAB PO DAILY, (Reported) Rosuvastatin Calcium (Crestor) 20 Mg Tablet, 20 MG PO DAILY, (Reported) Senna (Senna Lax) 8.6 Mg Tablet, 1 TAB PO BID Umeclidinium Brm/Vilanterol Tr (Anoro Ellipta 62.5-25 Mcg INH) 1 Each Blst.w.dev, 1 INH PO DAILY, (Reported) Scheduled PRN Acetaminophen (Acetaminophen) 325 Mg Tablet, 650 MG PO Q4H PRN for PAIN / FEVER, (Reported) GIVEN AT [facility] Albuterol Sulfate (Ventolin Hfa) 18 Gm Hfa.aer.ad, 2 PUFF INH Q4H PRN for wheezing, (Reported) Fluticasone Propionate (Flonase Allergy Relief) 9.9 Ml Mio.susp, 50 MCG NA for PRN, (Reported) Ipratropium/Albuterol Sulfate (Iprat-Albut 0.5-3(2.5) mg/3 ml) 3 Ml Ampul.neb, 1 VIAL INH Q4H PRN for SOB/WHEEZING, (Reported) GIVEN AT [facility] [Sodium Chloride Nasal Mio] 45 SPRAY/45 ML NASPR, 2 SPRAY NA Q2HP PRN for NASAL DRYNESS Miscellaneous Medications [Comments] , (Reported) MED REC DONE WITH TRANSFER PAPERWORK WELL EXTRENAL MED HISTORY. I CALLED AND TALKED TO THE NURSE AT [facility] HE SAID THAT SHE TOLD THE ER THERE SHE HADN'T TAKEN ANY MEDICATIONS BEFORE GOING IN. Allergies Coded Allergies: Penicillins (Verified Allergy, Intermediate, RASH, 01/20/19) Sulfa (Sulfonamide Antibiotics) (Verified Allergy, Intermediate, RASH, 01/20/19) amoxicillin (Verified Allergy, Intermediate, RASH, 01/20/19) ampicillin (Verified Allergy, Intermediate, RASH, 01/20/19) aspirin (Verified Allergy, Intermediate, RASH, 01/20/19) cefuroxime (Verified Allergy, Intermediate, RASH, 01/20/19) erythromycin base (Verified Allergy, Intermediate, RASH, 01/20/19) latex (Verified Allergy, Intermediate, RASH, 01/20/19) tetracycline (Verified Allergy, Intermediate, RASH, 01/20/19) GURJIT SANCHEZ MD Jan 25, 2019 10:30
--- NOTE | 2019-01-25 12:03 | IPNPDOC ---
Date Seen The patient was seen on 01/25/19. Progress Note NEPHROLOGY SERVICE PROGRESS NOTE: SUBJECTIVE: The patient was seen today and examined at the bedside. She reports her breathing feels better and she is ready to go home. Plans are being made r egarding her IV antibiotics to be infused outpatient for her bacteremia. Otherwise, she has no complaints and no overnight incidents reported. OBJECTIVE PHYSICAL EXAMINATION: VITAL SIGNS: Please see below. GENERAL APPEARANCE: Sitting up at the bedside, appearing stated age and in no acute distress HEENT: EOMI, PERRLA, neck is supple with no lymphadenopathy or thyromegaly RESPIRATORY: Faint crackles heard at the bases bilaterally, otherwise no adventitious breath sounds can be heard CARDIOVASCULAR: JVD is mildly elevated; RRR without any murmurs/rubs/gallops ABDOMEN: soft, obese, nontender to palpation without any organomegaly or masses, +BS EXTREMITIES: some trace pitting edema up to calves bilaterally, no clubbing or cyanosis otherwise NEUROLOGICAL: No focal deficits appreciated PSYCHIATRIC: normal mood, normal affect LABORATORY DATA, IMAGING STUDIES, MICROBIOLOGY: Please see below. ASSESSMENT AND PLAN: This is a 53 YO F with history of diabetic nephropathy admitted with hypercarbic respiratory acidosis now resolved and found to have E. coli bacteremia and acute renal failure that appears to be resolving. PROBLEMS: 1. Acute renal failure on CKD IV: Recent kidney biopsy demonstrates diabetic nephropathy -Patient's Cr improved to 2.6 today -ARF likely 2/2 UTI and E. coli bacteremia -BUN still elevated but improving -We will continue to monitor her improvement. If uremia does not improve she may need to start dialysis but she can be seen outpatient after discharge for this determination 2. E. coli UTI and bacteremia: -s/p Vancomycin -Continue IV Aztreonam. She will need at least 14 days for her bacteremia -Repeat blood cultures have not grown anything so far. 3. Acute decompensated dCHF: -Lasix will be decreased to 40mg daily 4. Hypervolemic hyponatremia: -Sodium improved to 139 today. She had about 3.5L urine output yesterday 5. DM2: -Continue insulin regimen (Levemir and SSI coverage) -BGL somewhat high. Consider adjusting levemir. DISPOSITION: The patient is optimized from a Nephrology standpoint and is safe for discharge. She is to follow up with Nephrology in the outpatient setting after discharge. VS, I&O, 24H, Omarbonmary Vital Signs/I&O Vital Signs Date Time Temp Pulse Resp B/P (MAP) Pulse Ox O2 Delivery O2 Flow Rate FiO2 01/25/19 08:00 3.0 01/25/19 08:00 96.3 77 22 145/72 (96) 96 01/22/19 04:20 40 01/22/19 04:20 BIPAP/CPAP I&O- Last 24 Hours up to 6 AM 01/25/19 06:00 Intake Total 1570 ml Output Total 3700 ml Balance -2130 ml Laboratory Data 24H LABS Laboratory Tests 2 01/24/19 17:08: Bedside Glucose (Misc Panel) 254H 01/24/19 20:22: Bedside Glucose (Misc Panel) 242H 01/25/19 05:12: Nucleated Red Blood Cells % (auto) 0.2H, Anion Gap 5L, Glomerular Filtration Rate 20.0L, Blood Urea Nitrogen 110H, Creatinine 2.64H, Sodium Level 139, Potassium Level 4.6, Chloride Level 101, Carbon Dioxide Level 33H, Calcium Level 8.2L, Phosphorus Level 3.2, Albumin 1.8L CBC/BMP Laboratory Tests 01/25/19 05:12 Red Blood Count 5.93 H, Mean Corpuscular Volume 78.4 L, Mean Corpuscular Hemoglobin 22.3 L, Mean Corpuscular Hemoglobin Concent 28.4 L, Red Cell Distribution Width 20.2 H, Calcium Level 8.2 L Microbiology Microbiology 01/24/19 Blood Culture - Preliminary, Resulted No growth after 24 hours . All specim... 01/20/19 Urine Culture - Final, Complete Escherichia Coli 01/20/19 Blood Culture - Final, Complete Escherichia Coli 01/20/19 Blood Culture - Final, Complete Escherichia Coli GME ATTESTATION GME ATTESTATION My faculty preceptor for this patient encounter was physically present during the encounter and was fully available. All aspects of the patient interview, examination, medical decision making process, and medical care plan development were reviewed and approved by the faculty preceptor. The faculty preceptor is aware and concurs with the plan as stated in the body of this note and will attest to such by his/her cosignature. KEILA CHÁVEZ MD Jan 25, 2019 12:03 RAFITA OSPINA MD Jan 26, 2019 12:10
[2019-01-25] MEDS ORDERED: SENN1TAB8 PO (14:24)
[2019-01-25] MEDS ORDERED: MUCI60TA7 PO (14:24)
[2019-01-25] MEDS ORDERED: LANTINJ4 SC (14:24)
[2019-01-25] MEDS ORDERED: HM S0.65 NARES (14:24)
[2019-01-26] MEDS ORDERED: FUROSEMIDE 40 MG TAB PO SCH (09:00)
--- NOTE | 2019-02-03 20:03 | DS.PDOC ---
Discharge Summary General Date of Admission Jan 20, 2019 at 18:12 Date of Discharge January 25, 2019 Specialist/Consultants Involve: ARGELIA MORENO MD @ Discharge Summary PROCEDURES PERFORMED DURING STAY: [Echocardiogram]. ADMITTING DIAGNOSES: 1. [Sepsis, Acute hypoxic and hypercarbic resp failure, acute on chronic kidney injury, hyperkalemia]. DISCHARGE DIAGNOSES: 1. [Sepsis resolved, Acute hypoxic and hypercarbic res failure resolved, UTI-E. coli, E. coli bacteremia, chronic hypoxic resp failure due to oxygen dependent COPD, hyperkalemia resolved, CKD III, NIDDM, essential hypertension, ROBERTO, polycythemia vera, dyslipidemia, chronic diastolic CHF, tobacco dependency, morbid obesity]. COMPLICATIONS/CHIEF COMPLAINT: Fluid Overload, Hyperkalemia. HISTORY OF PRESENT ILLNESS/HOSPITAL COURSE: [53 year old female with chronic kidney disease and recent renal biopsy was transferred to [facility] Upon arrival she was septic, hyperkalemic and in acute respiratory failure. Patient was stabilized with being placed on Bipap. She received medical intervention for her hyperkalemia and did not require hemodialysis. She received aggressive IV hydration initially due to sepsis but this was then stopped as she was approaching fluid overload. Acute kidney injury improved slowly; renal biopsy showed diabetic nephropathy. Cultures were positive for E.coli. Patient had a large number of drug allergies/intolerances and was placed on course of IV aztreonam. At baseline patient has oxygen dependent COPD and ROBERTO. She is scheduled for further outpatient study for Bipap. She is unfortunately still an active smoker but used nicotine patches during this hospital stay. Patient has NIDDM; she was able to maintain glycemic control with adjustment of her insulin and maintaining compliant diet. DISCHARGE MEDICATIONS: Please see below. ALLERGIES: Please see below. PHYSICAL EXAMINATION ON DISCHARGE: HENT: Neck is supple. She does not have any adenopathy. Oral mucosa is moist. Scleral injection is resolved, she notes considerable postnasal drainage, She is having occasional tiny amounts of blood from her nasal passages from dry air Cardiovascular: Regular rate and rhythm with a normal S1 and S2 and no murmur. Respiratory: Patient is currently clear to auscultation with no active cough or obstructive breathing pattern, Abdomen: Soft, nontender, nondistended, has remarkable morbid central obesity. Extremities: No peripheral edema, pedal pulses are palpable. Neuro: No focal neuromotor or sensory deficit. LABORATORY DATA: Please see below. IMAGING: PROGNOSIS: ACTIVITY: [As tolerated]. DIET: [Consistent carbohydrate] DISCHARGE PLAN: [The patient was discharged to home at her insistence. Arrangements were made for outpatient IV antibiotic therapy to complete a 14 day course. She will follow up with her PCP Dr. Blade Snow within the week. She will keep her appointment in [place] for sleep study part II for Bipap adj ustment. She will also follow up with her ultrasound technol Dr. Moreno. She will hopefully continue her smoking cessation.] DISPOSITION: 01 Home, Self-Care. DISCHARGE INSTRUCTIONS: 1. . ITEMS TO FOLLOWUP ON ON OUTPATIENT: 1. . DISCHARGE CONDITION: [Stable]. TIME SPENT ON DISCHARGE: Greater than [45] minutes. Microbiology Microbiology 01/24/19 Blood Culture - Final, Complete NO GROWTH AFTER 5 DAYS Discharge Medications Scheduled Ascorbic Acid (Vitamin C) 500 Mg Capsule.er, 500 MG PO DAILY, (Reported) Aztreonam (Aztreonam) 1 Gm Vial, 0.5 GM IV Q8H Buspirone HCl (Buspirone HCl) 5 Mg Tablet, 5 MG PO BID, (Reported) Cetirizine HCl (Cetirizine HCl) 10 Mg Tablet, 10 MG PO DAILY, (Reported) Cholecalciferol (Vitamin D3) (Vitamin D3) 5,000 Unit Capsule, 5,000 UNIT PO DAILY, (Reported) Docusate Sodium (Colace) 100 Mg Capsule, 100 MG PO BID Docusate Sodium (Colace) 100 Mg Capsule, 100 MG PO BID Furosemide (Furosemide) 20 Mg Tablet, 40 MG PO BID, (Reported) Gluc Kimble/Chondro Kimble A/Vit C/Mn (Glucosamine-Chondroitin Cap) 1 Each Capsule, 1 CAP PO DAILY, (Reported) Guaifenesin (Mucinex) 600 Mg Tab.er.12h, 600 MG PO BID Guaifenesin/Pseudoephedrne HCl (Mucinex D ER 600-60 mg Tablet) 1 Each Tab.er.12h, 1 TAB PO BID Insulin Glargine,Hum.rec.anlog (Basaglar Kwikpen U-100) 100 Unit/1 Ml Insuln.pen, 20 UNIT SC QPM, (Reported) Insulin Glargine,Hum.rec.anlog (Basaglar Kwikpen U-100) 100 Unit/1 Ml Insuln.pen, 40 UNIT SC DAILY Insulin Glargine,Hum.rec.anlog (Lantus Solostar) 100 Unit/1 Ml Insuln.pen, 40 UNITS SC QAM Insulin Lispro (Admelog Solostar) 100 Unit/1 Ml Insuln.pen, 10 UNIT SC ACHS, (Reported) Lifitegrast (Xiidra) 5% Droperette, 1 DROP OU DAILY, (Reported) Multivitamin (Multivitamins) 1 Each Capsule, 1 CAP PO DAILY, (Reported) Nicotine (Nicotine Patch) 21 Mg/24 Hr Patch.td24, 1 PATCH TD DAILY Oxybutynin Chloride (Oxybutynin Chloride) 5 Mg Tablet, 5 MG PO BID, (Reported) Ranitidine HCl (Ranitidine HCl) 150 Mg Tablet, 1 TAB PO DAILY, (Reported) Rosuvastatin Calcium (Crestor) 20 Mg Tablet, 20 MG PO DAILY, (Reported) Sennosides (Senna) 8.6 Mg Tablet, 8.6 MG PO BID for constipation Sodium Chloride (Saline Nasal Grayson) 44 Ml Grayson, 1-2 SPRAY NARES Q2H Umeclidinium Brm/Vilanterol Tr (Anoro Ellipta 62.5-25 Mcg INH) 1 Each Blst.w.dev, 1 INH PO DAILY, (Reported) Scheduled PRN Acetaminophen (Acetaminophen) 325 Mg Tablet, 650 MG PO Q4H PRN for PAIN / FEVER, (Reported) GIVEN AT [facility] Albuterol Sulfate (Ventolin Hfa) 18 Gm Hfa.aer.ad, 2 PUFF INH Q4H PRN for wheezing, (Reported) Fluticasone Propionate (Flonase Allergy Relief) 9.9 Ml Grayson.susp, 50 MCG NA for PRN, (Reported) Ipratropium/Albuterol Sulfate (Iprat-Albut 0.5-3(2.5) mg/3 ml) 3 Ml Ampul.neb, 1 VIAL INH Q4H PRN for SOB/WHEEZING, (Reported) GIVEN AT [facility] Miscellaneous Medications [Comments] , (Reported) MED REC DONE WITH TRANSFER PAPERWORK WELL EXTRENAL MED HISTORY. I CALLED AND TALKED TO THE NURSE AT [facility] HE SAID THAT SHE TOLD THE ER THERE SHE HADN'T TAKEN ANY MEDICATIONS BEFORE GOING IN. Allergies Coded Allergies: Penicillins (Verified Allergy, Intermediate, RASH, 01/20/19) Sulfa (Sulfonamide Antibiotics) (Verified Allergy, Intermediate, RASH, 01/20/19) amoxicillin (Verified Allergy, Intermediate, RASH, 01/20/19) ampicillin (Verified Allergy, Intermediate, RASH, 01/20/19) aspirin (Verified Allergy, Intermediate, RASH, 01/20/19) cefuroxime (Verified Allergy, Intermediate, RASH, 01/20/19) erythromycin base (Verified Allergy, Intermediate, RASH, 01/20/19) latex (Verified Allergy, Intermediate, RASH, 01/20/19) tetracycline (Verified Allergy, Intermediate, RASH, 01/20/19) GURJIT SANCHEZ MD Feb 03, 2019 20:03
== END 2019-01-25 14:31 | disposition home or self-care (01) | DRG 720 ==
LOC: M ICU 18:12 → OBSVTOIN 18:12 → M PCU 01-23 06:24
PROVIDERS: ADMIT Internal Medicine; ATTEND Internal Medicine
DX: A41.51 Sepsis due to Escherichia coli [E. coli] (principal); J96.01 Acute respiratory failure with hypoxia; I50.33 Acute on chronic diastolic (congestive) heart failure; N17.9 Acute kidney failure, unspecified; J96.02 Acute respiratory failure with hypercapnia; N18.3 Chronic kidney disease, stage 3 (moderate); E11.29 Type 2 diabetes mellitus with other diabetic kidney complication; I13.0 Hypertensive heart and chronic kidney disease with heart failure and stage 1 through stage 4 chronic kidney disease, or unspecified chronic kidney disease; Z99.81 Dependence on supplemental oxygen; E87.1 Hypo-osmolality and hyponatremia; E87.5 Hyperkalemia; E66.01 Morbid (severe) obesity due to excess calories; E83.39 Other disorders of phosphorus metabolism; Z79.899 Other long term (current) drug therapy; Z88.0 Allergy status to penicillin; Z88.2 Allergy status to sulfonamides; Z88.6 Allergy status to analgesic agent; Z91.040 Latex allergy status; J44.9 Chronic obstructive pulmonary disease, unspecified; F17.200 Nicotine dependence, unspecified, uncomplicated; G47.33 Obstructive sleep apnea (adult) (pediatric); E78.5 Hyperlipidemia, unspecified; D72.829 Elevated white blood cell count, unspecified; B96.29 Other Escherichia coli [E. coli] as the cause of diseases classified elsewhere; D45 Polycythemia vera; Z79.4 Long term (current) use of insulin

== ENCOUNTER → 2019-06-01 | Outpatient (CLI) | payer OTHER ==
[~2019-06-01] MED LIST changes: +ACET1TAB55 PO; +ADME100I2 SC; +ALL10TAB29 PO; +COLA100C5 PO; +COMMENTS; +FURO20TA2 PO; +HM S0.65 NARES; +LANTINJ4 SC; +LORA2CON5 PO; +METH125VL IM; +MUCI600T31 PO; +NICO1DIS11 TD; +OXYB5TAB10 PO; +SENN18TA PO; +SENN1TAB8 PO; +Sodium Chloride Nasal Spray; +VENTAER INH; +XIID5DRO OU; +[UNRECOGNIZED DRUG - CODE] IV; +[UNRECOGNIZED DRUG - CODE] IV
--- NOTE | 2019-06-01 13:13 | REP ---
Bilateral upper extremity arterial and venous Doppler ultrasound: History: Chronic kidney disease, stage IV. End-stage renal disease. Encounter for preprocedural exam. Vein mapping study for AV fistula placement. Sonographic findings: There is no evidence of venous thrombosis in either upper extremity on two-dimensional and Doppler interrogation. Normal triphasic arterial wave forms are noted throughout both upper extremities. No significant stenosis is seen. Right upper extremity vein diameter chart: Right upper humerus basilic 5.8 mm, cephalic 3.6 mm Lower humerus basilic 4.0 mm, cephalic 4.2 mm Upper forearm basilic 2.0 mm, cephalic 2.4 mm Lower forearm basilic 1.5 mm, cephalic 1.9 mm Median cubital 3.8 mm Left upper extremity vein diameter chart: Left upper humerus basilic 4.6 mm, cephalic 3.2 mm Lower humerus basilic 3.6 mm, cephalic 4.8 mm Upper forearm basilic 2.2 mm, cephalic 4.1 mm Lower forearm basilic not seen cephalic 2.9 mm Median cubital 3.6 mm Right upper extremity arterial Doppler velocity and size diameter chart: Right axillary artery 85 cm/S, 5.8 mm Brachial artery 76 cm/S, 5.6 mm Radial artery 74 proximal 90 distal cm/S, 2.9 - 2.6 mm Ulnar artery 85 - 116 cm/S, 4.3 - 2.8 mm Left upper extremity arterial Doppler velocity and size diameter chart: Left axillary artery 78 cm/S, 5.4 mm Brachial artery 86 cm/S, 5.3 mm Radial artery 76 proximal - 77 cm/S distal, 3.00-2.3 ulnar artery 78 - 59 cm/S, 3.3 - 3.5 mm Electronically Signed by Armen Guo MD 06/01/2019 01:05 P
== END ==
LOC: M RAD 11:01
PROVIDERS: ATTEND Physician Assistant
DX: Z01.818 Encounter for other preprocedural examination (principal); N18.6 End stage renal disease

== ENCOUNTER → 2019-06-23 | Outpatient (REF) | payer OTHER ==
[2019-06-24 14:32] LABS: HEPATITIS B CORE ANTIBODY IGM NEGATIVE (NEGATIVE); HEPATITIS B SURFACE ANTIBODY POSITIVE (POSITIVE); HEPATITIS B SURFACE ANTIGEN NEGATIVE (NEGATIVE); HEPATITIS C VIRUS ABY INDEX < 0.0 INDEX (<0.8)
== END ==
LOC: M LAB REF 13:10
PROVIDERS: ATTEND Nurse Practitioner Family
DX: N18.5 Chronic kidney disease, stage 5 (principal)

== ENCOUNTER → 2019-07-26 | Outpatient (REF) | payer OTHER ==
[~2019-07-26] MED LIST changes: +CALC1CAP PO; +HM S0.65; +NICO14DI6; +NICO2GUM40 PO; +OXYC1TAB23 PO; +SENN-80 PO; -SENN1TAB8 PO; +VITA500079 PO
[2019-07-27 09:35] LABS: HEPATITIS B CORE ANTIBODY IGM NEGATIVE (NEGATIVE); HEPATITIS B SURFACE ANTIBODY POSITIVE (POSITIVE); HEPATITIS B SURFACE ANTIGEN NEGATIVE (NEGATIVE); HEPATITIS C VIRUS ABY INDEX 0.1 INDEX (<0.8)
== END ==
LOC: M LAB REF 17:24
PROVIDERS: ATTEND Nurse Practitioner Family
DX: N18.5 Chronic kidney disease, stage 5 (principal)

== ENCOUNTER 2019-07-27 07:44 | Day surgery (SDC) | payer OTHER ==
[~2019-07-27] VITALS: Ht 157.5 cm; Wt 115.7 kg
[~2019-07-27 07:44] MED LIST changes: -NICO14DI6; +NS 500 ML IV ONE; -OXYC1TAB23 PO
[2019-07-27] MEDS ORDERED: dexameTHASONE 10MG/1ML VIAL PRES.FREE (J1100 PER 1MG) ONE (07:45)
[2019-07-27] MEDS ORDERED: LIDOCAINE 1% MDV 20ML VIAL ONE (07:45)
[2019-07-27] MEDS ORDERED: ROPIvacaine 0.5% 30 ML INJECTION (J2795 PER 1MG) ONE (07:45)
[2019-07-27] MEDS ORDERED: LIDOCAINE 2% 100MG/5ML SDV (FOR ANES.) As Ordered ONE (08:21)
[2019-07-27] MEDS ORDERED: ROCURONIUM BROMIDE 50 MG/5 ML VIAL As Ordered ONE (08:21)
[2019-07-27] MEDS ORDERED: MIDAZOLAM INJ 2 MG/2 ML VIAL (J2250) As Ordered ONE ×2 (08:21→09:07)
[2019-07-27] MEDS ORDERED: fentaNYL 250 MCG/5 ML INJECTION (J3010) As Ordered ONE (08:21)
[2019-07-27] MEDS ORDERED: propofoL 200 MG/20 ML VIAL As Ordered ONE (08:21)
[2019-07-27] MEDS ORDERED: ALBUTEROL SULFATE 2.5 MG/0.5 ML INH NEB SOLN INH ONE (08:30)
[2019-07-27] MEDS ORDERED: NICO14DI6 (08:46)
[2019-07-27] MEDS ORDERED: BUPIVACAINE/EPIN 0.5% 30 ML VIAL As Ordered ONE (09:03)
[2019-07-27] MEDS ORDERED: HEPARIN SOD (PORCINE) 5000UNITS/ML VIAL (J1644 PER 1000UNITS) As Ordered ONE ×2 (09:03→09:14)
[2019-07-27] MEDS ORDERED: fentaNYL 100 MCG/2 ML INJECTION (J3010) As Ordered ONE (09:07)
[2019-07-27] MEDS ORDERED: LIDOCAINE 1% SDV 30ML VIAL As Ordered ONE (09:12)
[2019-07-27] MEDS ORDERED: MIDAZOLAM INJ 2 MG/2 ML VIAL (J2250) IV ONE (09:30)
[2019-07-27] MEDS ORDERED: VANCOMYCIN HCL 750 MG, VIAL MATE ADAPTER 1 EACH in D5W 250 ML IV ONE ×6 (09:30)
[2019-07-27] MEDS ORDERED: fentaNYL 100 MCG/2 ML INJECTION (J3010) IV ONE (09:30)
[2019-07-27] MEDS ORDERED: ePHEDrine SULFATE 25 MG/5 ML(5MG/ML) SYRINGE As Ordered ONE (10:18)
[2019-07-27] MEDS ORDERED: OXYC1TAB23 PO (11:20)
--- NOTE | 2019-07-27 11:30 | ROOPDOC ---
[facility] Report Of Operation Report of Operation DATE OF PROCEDURE: 07/27/19 PREPROCEDURE DIAGNOSES: Renal failure requiring access for dialysis POSTPROCEDURE DIAGNOSES: Same PROCEDURE: Left upper extremity brachiocephalic AV fistula creation SURGEON: Bridger Archer MD ANESTHESIA: LMA, left scalene nerve block, local anesthesia INDICATION FOR PROCEDURE: This is a very pleasant 53-year-old patient with renal failure requiring access for dialysis. Her vein mapping was reviewed, and we felt the best option for AV fistula creation was a left brachiocephalic AV fistula. The patient was extensively counseled about the risks benefits and alternatives to proceeding with surgery, and all of her questions were answered. She was agreeable to proceed. Informed consent was obtained. REPORT OF OPERATION: The patient was brought to the OR in stable condition after a left scalene nerve block was placed by our anesthesia colleagues in preop holding. Anesthesia and antibiotics were administered without complication. Her left upper extremity was prepped and draped in a sterile fashion. A timeout was performed. Local anesthesia was administered to skin and subcutaneous tissue, and a small transverse incision was made over the cephalic vein and brachial artery 1 cm distal to the antecubital crease. This was carried down to the subcutaneous tissue with Bovie cautery. We encountered the basilic and cephalic vein connected by a narrow median cubital vein. We skeletonized the cephalic vein proximally and distally. A silk suture was placed on the median cubital vein and at the cephalic vein distally. We then continued or dissection down to the brachial artery which was skeletonized proximally and distally. A vessel loop was placed proximally and distally. A small branch was clipped. We then transected the cephalic vein at the suture ligations and connected the 2 openings with a pot scissor. A bulldog clamp was placed. We then sequentially dilated the vein with a 3.5 mm, 4 mm, 4.5 mm dilator and no obstruction or difficulty passing the dilators was noted. We flushed the vein with heparinized saline. The Vesseloops were secured. A 5 mm arteriotomy was made in the brachial artery. We then anastomosed the vein to the artery and an end-to-side fashion with 6-0 Prolene suture. Before the final sutures are placed, we flushed the inflow and outflow of the artery as well as the vein and irrigated the anastomosis with heparinized saline. We placed her final sutures and restored flow through the vein and the inflow of the brachial artery first, and then restored flow to the hand. A good radial artery pulse was palpable, and there was a biphasic signal over the palmar arch with Doppler. We were able to Doppler good flow through the fistula. There is a good thrill in the fistula. We irrigated our incision with copious amounts of normal saline. The deep tissues reapproximated with interrupted 2-0 Vicryl sutures. We close the deep dermal layer with a running 4-0 Vicryl suture. The skin was closed with a running 4-0 subcuticular Monocryl suture. Mastisol and Steri-Strips were placed the length of the incision. A 4 x 4 and Tegaderm were placed as a final dressing. This concluded the vascular portion of the procedure. The patient will subsequently undergo placement of a PD catheter by Dr Lewis. After his portion of the surgery, we have asked the nursing staff to place a left upper extremity sling to protect the arm until the nerve block wears off and the patient has full recovery of motor and sensory function in the left upper extremity. She tolerated this portion of the procedure well. ESTIMATED BLOOD LOSS: Approximately 15 mL. COMPLICATIONS: None. PLAN: The patient will now have her PD catheter placed. Following that, the plan is for her to be discharged home. She will need to wear the sling on her left upper extremity until motor and sensory function returned to her baseline. The Tegaderm and gauze in her left upper extremity incision can be removed after 48 hours, but this Steri-Strips should remain intact at least 7 days to help with healing. No lifting greater than 5 pounds, no strenuous exercise until incision is completely healed. We did call her and prescription for Percocet 1 tab QID prn pain #20 no refills, to her pharmacy in [place]. We plan to see her back in a week to check her fistula in her incision. We appreciate the opportunity to participate in the care of this patient. BRIDGER ARCHER MD Jul 27, 2019 11:30
[2019-07-27] MEDS ORDERED: ONDANSETRON 4MG/2ML VIAL (J2405) As Ordered ONE (12:18)
[2019-07-27] MEDS ORDERED: fentaNYL 100 MCG/2 ML INJECTION (J3010) IV PRN (12:30)
[2019-07-27] MEDS ORDERED: ONDANSETRON 4MG/2ML VIAL (J2405) IV PRN (12:30)
[2019-07-27] MEDS ORDERED: NORCO, ANEXSIA 5/325MG TABLET (HYDROcodone/ACETAMINOPHEN) PO PRN (13:00)
[2019-07-27] MEDS ORDERED: ACETAMINOPHEN TAB 650MG DOSE (2X325MG) PO PRN (13:00)
--- NOTE | 2019-07-27 13:03 | ECGEPIP ---
[facility] Test Date: 2019-07-27 Pat Name: STEPHENIE MILLAN Department: Room: - Gender: Female Hospital Social Worker: SCOTT : 1965 Requested By: KAMRYN Nelson Order Number: [id number] Reading MD: Krishna Mead Measurements Intervals [place] Rate: 74 P: 45 OR: 211 QRS: 14 QRSD: 78 T: 58 QT: 382 QTc: 425 Interpretive Statements SINUS RHYTHM WITH FIRST DEGREE AV BLOCK LOW QRS VOLTAGE IN PRECORDIAL LEADS Poor R wave progression. Decreased heart rate and no longer in atrial fibrillation compared with 01/13/2019. Electronically Signed on 07-27-2019 13:03:00 EDT by Krishna Mead
--- NOTE | 2019-07-27 14:53 | RO ---
DATE OF PROCEDURE: 07/27/2019 PREOPERATIVE DIAGNOSIS: End-stage renal disease. POSTOPERATIVE DIAGNOSIS: End-stage renal disease. PROCEDURE PERFORMED: Implantation of continuous ambulatory peritoneal dialysis catheter. SURGEON: Florian Lewis MD STUDY ABROAD COORDINATOR: ANESTHESIA: General. INDICATIONS FOR THE PROCEDURE: The patient is a 53-year-old woman with progressive end-stage renal disease. She is soon approaching the need for dialysis. She was scheduled today for a combined operation with Dr. Archer creating an arteriovenous fistula and me placing a peritoneal dialysis catheter. She has already undergone her procedure by Dr. Archer for creation of a left upper extremity arteriovenous fistula. She has completed her procedure, and I am now starting the second procedure of placement of a CAPD catheter. The patient remains under general anesthesia with an laryngeal mask airway (LMA) anesthesia device. OPERATIVE PROCEDURE: The patient was supine on the operating table. The patient's abdomen was prepped and draped in a sterile fashion. A site was selected for placement of the catheter in the left upper quadrant approximately 8 cm above the umbilicus. This area was infiltrated with 1% Xylocaine. An approximately 3 cm longitudinal paramedian incision was made. This was deepened through the subcutaneous tissues using the cautery. The anterior layer of the rectus sheath was opened longitudinally, and the rectus fibers were spread. The posterior rectus sheath and peritoneum were elevated, and a small incision was made. A pursestring suture of 2-0 Vicryl was placed. The 62-cm double pledgeted Brayan pigtail catheter was placed over a long stylet. The patient was tilted to a slight Trendelenburg position. The inferior edge of the opening into the peritoneum was elevated, and the peritoneal dialysis catheter was inserted. This was directed inferiorly, hugging the posterior wall of the anterior abdominal wall. After inserting the catheter 10-15 cm, the catheter was then slipped off of the long stylet. The catheter was advanced to the first pledget which was placed just outside the peritoneum. The pursestring suture was tied down and then tied about the pledget to prevent retraction. The patient was returned to a flat position. The rectus muscle was allowed to close in around the pledget, and the anterior layer of the rectus sheath was closed with a running suture of 0 Vicryl. The catheter was tunneled through the subcutaneous tissues to exit a small stab incision just slightly below the level of insertion of the catheter. The infusion hub was attached to the catheter. One liter of sterile saline was infiltrated through the catheter. While the fluid was infusing, the subcutaneous tissues were approximated with 3-0 Vicryl. The patient was in a slight reverse Trendelenburg position for testing of the catheter. Once the fluid had nearly completely infused, the bag was dropped to the floor, and the abdomen was allowed to drain by gravity siphon. Approximately 600 mL of the fluid returned. The skin edges were approximated with a running subcuticular 4-0 Vicryl and Steri-Strips. A single 5-0 Vicryl was placed to narrow the skin opening around the catheter. The catheter was filled with 1 mL of 5000 units/ml heparin and 1.2 mL of sterile saline. The catheter was plugged, and a small clamp was placed on the catheter, as well. The site was dressed with a CHG OpSite. Several 4 x 4 gauzes were placed just below the exit site of the catheter and to cover the OpSite and the catheter. This was held in place with some paper tape. The patient tolerated the procedure well without apparent complication. Following this procedure, she was awakened and extubated and moved to the recovery room in stable condition.
[2019-07-27 15:12] VITALS: BP 126/79
== END 2019-07-27 15:20 | disposition home or self-care (01) ==
LOC: M SDC 07:44
PROVIDERS: ATTEND Surgery Vascular Surgery
DX: N19 Unspecified kidney failure (principal); N18.5 Chronic kidney disease, stage 5; I12.0 Hypertensive chronic kidney disease with stage 5 chronic kidney disease or end stage renal disease; E78.00 Pure hypercholesterolemia, unspecified; E11.22 Type 2 diabetes mellitus with diabetic chronic kidney disease; F41.9 Anxiety disorder, unspecified; F32.9 Major depressive disorder, single episode, unspecified; I50.9 Heart failure, unspecified; J44.9 Chronic obstructive pulmonary disease, unspecified; G47.33 Obstructive sleep apnea (adult) (pediatric); E66.01 Morbid (severe) obesity due to excess calories; K21.9 Gastro-esophageal reflux disease without esophagitis; F17.210 Nicotine dependence, cigarettes, uncomplicated; R60.0 Localized edema; E83.39 Other disorders of phosphorus metabolism; D63.1 Anemia in chronic kidney disease; N25.81 Secondary hyperparathyroidism of renal origin; Z78.0 Asymptomatic menopausal state; Z79.4 Long term (current) use of insulin; Z79.899 Other long term (current) drug therapy; Z88.0 Allergy status to penicillin; Z88.1 Allergy status to other antibiotic agents; Z88.6 Allergy status to analgesic agent; Z91.040 Latex allergy status
CPT/HCPCS: 36821; 49421; 64450; 93005; C1750; J1100; J1644; J2250; J2405; J2795; J3010; J3370

== ENCOUNTER 2021-05-02 14:45 | Inpatient (IN) | payer OTHER ==
[~2021-05-02] VITALS: Ht 157.5 cm; Wt 124.7 kg
[~2021-05-02 14:45] MED LIST changes: -ALL10TAB29 PO; +CETI-24 PO; +NICO14DI6; -NS 500 ML IV ONE; +OXYC1TAB23 PO
[2021-05-02] MEDS ORDERED: VITA100065 PO (23:54)
[2021-05-02] MEDS ORDERED: REST0.05 OU (23:54)
[2021-05-02] MEDS ORDERED: D 50CAP2 PO (23:54)
[2021-05-02] MEDS ORDERED: IPRA0.00 INH (23:54)
[2021-05-02] MEDS ORDERED: SEVE800T3 PO ×2 (23:54)
[2021-05-02] MEDS ORDERED: FURO40TA2 PO (23:54)
[2021-05-02] MEDS ORDERED: ANOR1AER INH (23:54)
[2021-05-02] MEDS ORDERED: VITMTA PO (23:54)
[2021-05-03] MEDS ORDERED: CRAN400C PO (00:02)
[2021-05-03] MEDS ORDERED: SEVE800T3 PO (00:02)
[2021-05-03] MEDS ORDERED: ESOM0.1C PO (00:02)
[2021-05-03] MEDS ORDERED: CLEO300C2 PO (00:02)
[2021-05-03] MEDS ORDERED: CALC667T2 PO (00:02)
[2021-05-09] MEDS ORDERED: TORS100T PO (07:44)
[2021-05-09] MEDS ORDERED: OMEP-173 PO (07:44)
[2021-05-09 08:00] VITALS: BP 107/62
[2021-05-09] MEDS ORDERED: ELIQ5TAB PO (10:42)
== END 2021-05-09 12:25 | disposition home or self-care (01) | DRG 720 ==
LOC: M PCU 19:30 → M MSPAV 05-06 17:45
PROVIDERS: ADMIT Internal Medicine; ATTEND Internal Medicine
PROC: 5A1D70Z Performance of Urinary Filtration, Intermittent, Less than 6 Hours Per Day (ICD-10-PCS; principal; 2021-05-09)
DX: A41.9 Sepsis, unspecified organism (principal); I50.33 Acute on chronic diastolic (congestive) heart failure; N18.6 End stage renal disease; E11.22 Type 2 diabetes mellitus with diabetic chronic kidney disease; D69.6 Thrombocytopenia, unspecified; N25.81 Secondary hyperparathyroidism of renal origin; E87.1 Hypo-osmolality and hyponatremia; I13.2 Hypertensive heart and chronic kidney disease with heart failure and with stage 5 chronic kidney disease, or end stage renal disease; I48.92 Unspecified atrial flutter; J44.1 Chronic obstructive pulmonary disease with (acute) exacerbation; E66.01 Morbid (severe) obesity due to excess calories; L03.116 Cellulitis of left lower limb; N39.0 Urinary tract infection, site not specified; R07.89 Other chest pain; N26.9 Renal sclerosis, unspecified; R09.02 Hypoxemia; K21.9 Gastro-esophageal reflux disease without esophagitis; F41.9 Anxiety disorder, unspecified; R32 Unspecified urinary incontinence; E78.5 Hyperlipidemia, unspecified; Z99.2 Dependence on renal dialysis; Z79.4 Long term (current) use of insulin; Z79.899 Other long term (current) drug therapy; Z88.0 Allergy status to penicillin; Z88.1 Allergy status to other antibiotic agents; Z88.2 Allergy status to sulfonamides; Z88.6 Allergy status to analgesic agent; Z88.8 Allergy status to other drugs, medicaments and biological substances; Z91.040 Latex allergy status; Z91.018 Allergy to other foods; K80.20 Calculus of gallbladder without cholecystitis without obstruction; G47.33 Obstructive sleep apnea (adult) (pediatric); D63.1 Anemia in chronic kidney disease; Z79.2 Long term (current) use of antibiotics

== ENCOUNTER 2021-05-11 19:08 | Inpatient (IN) | payer OTHER ==
[~2021-05-11] VITALS: Ht 157.5 cm; Wt 121.0 kg
[~2021-05-11 19:08] MED LIST changes: +ANOR1AER INH; +CALC667T2 PO; +CLEO300C2 PO; +CRAN400C PO; +D 50CAP2 PO; +ELIQ5TAB PO; +ESOM0.1C PO; +OMEP-173 PO; +REST0.05 OU; +SEVE800T3 PO; +TORS100T PO; +VITA100065 PO; +VITMTA PO
[2021-05-11] MEDS ORDERED: TORS100T PO (22:20)
[2021-05-11] MEDS ORDERED: ELIQ5TAB PO (22:20)
[2021-05-11] MEDS ORDERED: SEVE800T3 PO (22:22)
[2021-05-11] MEDS ORDERED: CALC667T2 PO (22:22)
[2021-05-12 22:00] VITALS: BP 92/58
[2021-05-13] MEDS ORDERED: MIDO5TA PO (07:32)
== END 2021-05-13 09:05 | disposition short-term general hospital (02) | DRG 207 ==
LOC: M ED 19:08 → M ED INP 05-12 01:08 → ENRESERV 05-12 01:53 → M PCU 05-12 02:39
PROVIDERS: ADMIT Internal Medicine; ATTEND Internal Medicine
DX: I31.3 Pericardial effusion (noninflammatory) (principal); I31.4 Cardiac tamponade; R57.9 Shock, unspecified; I50.33 Acute on chronic diastolic (congestive) heart failure; I13.2 Hypertensive heart and chronic kidney disease with heart failure and with stage 5 chronic kidney disease, or end stage renal disease; N18.6 End stage renal disease; E11.22 Type 2 diabetes mellitus with diabetic chronic kidney disease; E87.2 Acidosis; E66.01 Morbid (severe) obesity due to excess calories; Z68.42 Body mass index [BMI] 45.0-49.9, adult; E87.1 Hypo-osmolality and hyponatremia; E87.5 Hyperkalemia; J44.9 Chronic obstructive pulmonary disease, unspecified; G47.33 Obstructive sleep apnea (adult) (pediatric); E78.5 Hyperlipidemia, unspecified; K21.9 Gastro-esophageal reflux disease without esophagitis; F41.9 Anxiety disorder, unspecified; R74.01 Elevation of levels of liver transaminase levels; I48.0 Paroxysmal atrial fibrillation; Z20.822 Contact with and (suspected) exposure to COVID-19; Z79.01 Long term (current) use of anticoagulants; Z79.4 Long term (current) use of insulin; Z79.899 Other long term (current) drug therapy; Z88.0 Allergy status to penicillin; Z88.1 Allergy status to other antibiotic agents; Z88.2 Allergy status to sulfonamides; Z88.8 Allergy status to other drugs, medicaments and biological substances; Z91.040 Latex allergy status; Z91.018 Allergy to other foods

== ENCOUNTER 2021-07-23 00:44 | Inpatient (IN) | payer MEDICARE, OTHER ==
[~2021-07-23] VITALS: Ht 157.5 cm; Wt 123.5 kg
[~2021-07-23 00:44] MED LIST changes: +MIDO5TA PO
[2021-07-23] MEDS ORDERED: AMIO200T49 PO (01:01)
[2021-07-23] MEDS ORDERED: COLA100C5 PO (01:01)
[2021-07-23] MEDS ORDERED: FOLI1TAB11 PO (01:01)
[2021-07-23] MEDS ORDERED: ONDA-83 PO (01:01)
[2021-07-23] MEDS ORDERED: HYDR-3713 PO (01:01)
[2021-07-23 03:15] LABS: BASO % 0.2 % (0.0-1.0); EOS % 0.2 % (0.0-3.0); HEMOGLOBIN 8.7 g/dl (12.0-15.5); LYMPH % 7.9 % (24.0-44.0); MEAN CORPUSCULAR HEMOGLOBIN 27.9 pg (27.0-33.0); MEAN CORPUSCULAR HGB CONC 32.2 g/dl (32.0-36.5); MEAN CORPUSCULAR VOLUME 86.5 fl (80.0-96.0); MONO # 0.6 10^3/uL (0.0-0.8); MONO % 4.8 % (2.0-8.0); NEUTROPHILS # 11.3 10^3/uL (1.5-8.5); NEUTROPHILS % 86.5 % (36.0-66.0); PLATELET COUNT, AUTOMATED 117 10^3/uL (150-450); RED BLOOD COUNT 3.12 10^6/uL (4.00-5.40); WHITE BLOOD COUNT 13.1 10^3/uL (4.0-10.0)
[2021-07-23 03:50] LABS: ALBUMIN 2.5 GM/DL (3.2-5.2); BILIRUBIN,TOTAL 0.4 MG/DL (0.2-1.0); C REACTIVE PROTEIN QUANTITATIV 4.09 MG/DL (0.00-0.30); CALCIUM LEVEL 8.6 MG/DL (8.5-10.1); CREATININE FOR GFR 9.67 MG/DL (0.55-1.30); GLOMERULAR FILTRATION RATE 4.4 (>51); POTASSIUM SERUM 4.1 MEQ/L (3.5-5.1); TOTAL PROTEIN 5.9 GM/DL (6.4-8.2)
[2021-07-23] MEDS ORDERED: DEXTROSE 50% 50 ML SYRINGE As Ordered ONE (07:22)
[2021-07-23] MEDS ORDERED: DEXTROSE 50% 50 ML SYRINGE IV STA (07:30)
[2021-07-23] MEDS ORDERED: VANCOMYCIN HCL 1,000 MG, VIAL MATE ADAPTER 1 EACH in NS 250 ML IV ONE (08:00)
[2021-07-23 08:12] LABS: BASO % 0.3 % (0.0-1.0); EOS % 0.5 % (0.0-3.0); HEMATOCRIT 33.1 % (36.0-47.0); HEMOGLOBIN 10.3 g/dl (12.0-15.5); LYMPH # 0.6 10^3/uL (1.5-5.0); LYMPH % 9.2 % (24.0-44.0); MEAN CORPUSCULAR HEMOGLOBIN 27.4 pg (27.0-33.0); MEAN CORPUSCULAR HGB CONC 31.1 g/dl (32.0-36.5); MONO # 0.3 10^3/uL (0.0-0.8); MONO % 4.8 % (2.0-8.0); NEUTROPHILS # 5.3 10^3/uL (1.5-8.5); NEUTROPHILS % 84.9 % (36.0-66.0); RED BLOOD COUNT 3.76 10^6/uL (4.00-5.40); WHITE BLOOD COUNT 6.2 10^3/uL (4.0-10.0)
[2021-07-23 08:20] LABS: VENOUS BASE EXCESS -0.8 (-2.0-2.0); VENOUS HCO3 25.5 MEQ/L (23.0-27.0); VENOUS O2 SATURATION 92.3 % (60.0-80.0); VENOUS PARTIAL PRESSURE CO2 50.8 mmHg (38.0-50.0); VENOUS PARTIAL PRESSURE O2 66.4 mmHg (30.0-50.0); VENOUS PH 7.319 UNITS (7.330-7.430); VENOUS STANDARD HCO3 23.7 MEQ/L; VENOUS TOTAL CO2 27.1 MEQ/L (24.0-28.0)
[2021-07-23 08:25] LABS: CALCIUM LEVEL 8.4 MG/DL (8.5-10.1); CREATININE FOR GFR 9.86 MG/DL (0.55-1.30); GLOMERULAR FILTRATION RATE 4.3 (>51); POTASSIUM SERUM 3.8 MEQ/L (3.5-5.1)
[2021-07-23 08:39] LABS: RSV AMPLIFICATION NEGATIVE (NEGATIVE)
[2021-07-23 08:53] LABS: PLATELET COUNT, AUTOMATED 87 10^3/uL (150-450)
[2021-07-23] MEDS ORDERED: ISOVUE-370 76% 100ML VIAL As Ordered ONE (08:54)
[2021-07-23] MEDS: CETIRIZINE (ZyrTEC) 10 MG TAB PO SCH (09:00)
[2021-07-23] MEDS: NICOTINE 21MG/24HR 1 EA TRANSDERMAL TOP SCH (09:00)
[2021-07-23] MEDS: FOLIC ACID 1 MG TAB PO SCH (09:00)
[2021-07-23] MEDS: LEVEMIR (INSULIN DETEMIR) 1 UNITS/0.01ML SC SCH (09:00)
[2021-07-23] MEDS: DOCUSATE SODIUM 100MG CAPSULE PO SCH ×2 (09:00→19:36)
[2021-07-23] MEDS ORDERED: GENTAMICIN 160 MG in D5W 50 ML IV ONE (09:00)
[2021-07-23] MEDS: OMEPRAZOLE 20MG CAP PO SCH (09:00)
[2021-07-23] MEDS: AMIODARONE 200 MG TAB (PACERONE) PO SCH ×2 (09:00→22:30)
[2021-07-23] MEDS: MULTIVITAMINS/MINERALS THERAP 1 TAB PO SCH (09:00)
[2021-07-23 09:05] LABS: CK-MB VALUE MASS 1.3 NG/ML (<3.6); MB/CK RELATIVE INDEX 2.45 (< OR =4)
[2021-07-23] MEDS ORDERED: SEVE800T3 PO (10:36)
[2021-07-23] MEDS ORDERED: NOVOINJ3 SC (10:36)
[2021-07-23] MEDS ORDERED: MAALOX 30 ML SUSP *UDC PO PRN (10:40)
[2021-07-23] MEDS ORDERED: MIDO10TA PO (10:40)
[2021-07-23] MEDS ORDERED: MIRA3350 PO (10:40)
[2021-07-23] MEDS ORDERED: MIDO5TA PO (10:40)
[2021-07-23] MEDS ORDERED: NICO1DIS11 TOP (10:40)
[2021-07-23] MEDS ORDERED: CVS1500T PO (10:41)
[2021-07-23] MEDS ORDERED: DEXTROSE 50% 50 ML SYRINGE IV PRN (10:45)
[2021-07-23] MEDS ORDERED: HOME MED LIST COMPLETE! XX SCH (10:45)
[2021-07-23] MEDS ORDERED: GLUCOSE 4GM CHEW TABLET PO PRN (10:45)
[2021-07-23] MEDS ORDERED: GLUCAGON INJ 1MG VIAL SC PRN (10:45)
[2021-07-23] MEDS: HumaLOG INSULIN (NovoLOG) PER UNIT SC SCH ×3 (12:00→22:30)
[2021-07-23] MEDS ORDERED: (RENVELA) SEVELAMER **CARBONate** 800 MG TAB PO PRN (12:25)
[2021-07-23] MEDS ORDERED: ALBUTEROL 90 MCG/ACT 8GM HFA INHALER INH PRN (12:25)
[2021-07-23] MEDS: (RENVELA) SEVELAMER **CARBONate** 800 MG TAB PO SCH ×2 (12:30→22:30)
[2021-07-23] MEDS: MIDODRINE 5 MG TAB PO SCH ×2 (13:00→22:30)
[2021-07-23] MEDS: SYMBICORT 80/4.5MCG INHALER 6GM INH SCH (19:26)
[2021-07-23] MEDS: FAMOTIDINE 20 MG TAB PO SCH (19:37)
[2021-07-23] MEDS: ROSUVASTATIN 10 MG TAB (CRESTOR) PO SCH (19:37)
[2021-07-23] MEDS ORDERED: VANCOMYCIN 1000MG/20ML VIAL IP ONE (22:00)
[2021-07-23] MEDS: APIXABAN 5 MG TAB (ELIQUIS) PO SCH (22:30)
[2021-07-23] MEDS: oxyBUTYnin 5 MG TAB PO SCH (22:30)
[2021-07-23] MEDS: GENTAMICIN SULF 80MG/2ML VIAL IP SCH (23:51)
[2021-07-24 01:35] VITALS: BP 128/58
[2021-07-24] MEDS: ONDANSETRON 4MG TAB PO PRN ×2 (03:32→13:10)
[2021-07-24 05:20] LABS: BASO % 0.2 % (0.0-1.0); EOS # 0.1 10^3/uL (0.0-0.5); HEMATOCRIT 25.8 % (36.0-47.0); LYMPH # 0.8 10^3/uL (1.5-5.0); LYMPH % 8.7 % (24.0-44.0); MEAN CORPUSCULAR HEMOGLOBIN 26.9 pg (27.0-33.0); MEAN CORPUSCULAR VOLUME 86.9 fl (80.0-96.0); MONO # 0.6 10^3/uL (0.0-0.8); MONO % 6.6 % (2.0-8.0); NEUTROPHILS # 7.9 10^3/uL (1.5-8.5); NEUTROPHILS % 83.1 % (36.0-66.0); PLATELET COUNT, AUTOMATED 105 10^3/uL (150-450); RED BLOOD COUNT 2.97 10^6/uL (4.00-5.40); WHITE BLOOD COUNT 9.6 10^3/uL (4.0-10.0)
[2021-07-24 05:41] LABS: ERYTHROCYTE SEDIMENTATION RATE 109 mm/hr (0-30)
[2021-07-24 06:00] VITALS: BP 117/56
[2021-07-24 06:00] LABS: ALBUMIN 2.3 GM/DL (3.2-5.2); BILIRUBIN,TOTAL 0.3 MG/DL (0.2-1.0); C REACTIVE PROTEIN QUANTITATIV 12.3 MG/DL (0.00-0.30); CALCIUM LEVEL 8.2 MG/DL (8.5-10.1); CREATININE FOR GFR 10.1 MG/DL (0.55-1.30); GLOMERULAR FILTRATION RATE 4.2 (>51); MAGNESIUM LEVEL 1.9 MG/DL (1.8-2.4); TOTAL PROTEIN 5.7 GM/DL (6.4-8.2)
[2021-07-24] MEDS: GENTAMICIN SULF 80MG/2ML VIAL IP SCH ×2 (06:21→22:03)
[2021-07-24] MEDS: SYMBICORT 80/4.5MCG INHALER 6GM INH SCH (07:29)
[2021-07-24 08:00] VITALS: BP 129/59
[2021-07-24] MEDS: HumaLOG INSULIN (NovoLOG) PER UNIT SC SCH ×4 (08:18→20:03)
[2021-07-24] MEDS: (RENVELA) SEVELAMER **CARBONate** 800 MG TAB PO SCH ×3 (08:19→17:15)
[2021-07-24] MEDS: DOCUSATE SODIUM 100MG CAPSULE PO SCH ×2 (08:19→20:58)
[2021-07-24] MEDS: MULTIVITAMINS/MINERALS THERAP 1 TAB PO SCH (08:19)
[2021-07-24] MEDS: OMEPRAZOLE 20MG CAP PO SCH (08:19)
[2021-07-24] MEDS: LEVEMIR (INSULIN DETEMIR) 1 UNITS/0.01ML SC SCH (08:19)
[2021-07-24] MEDS: AMIODARONE 200 MG TAB (PACERONE) PO SCH ×2 (08:20→20:58)
[2021-07-24] MEDS: oxyBUTYnin 5 MG TAB PO SCH ×2 (08:20→20:58)
[2021-07-24] MEDS: NICOTINE 21MG/24HR 1 EA TRANSDERMAL TOP SCH (08:20)
[2021-07-24] MEDS: APIXABAN 5 MG TAB (ELIQUIS) PO SCH ×2 (08:20→20:58)
[2021-07-24] MEDS: FOLIC ACID 1 MG TAB PO SCH (08:20)
[2021-07-24] MEDS: CETIRIZINE (ZyrTEC) 10 MG TAB PO SCH (08:20)
[2021-07-24] MEDS: MIDODRINE 5 MG TAB PO SCH ×3 (08:29→17:15)
[2021-07-24] MEDS: IPRATROPIUM 0.5MG/ALBUTEROL 2.5MG INH SOL UD 3ML (DUONEB) INH PRN (09:46)
[2021-07-24 11:18] LABS: APPEARANCE, BODY FLUID CLOUDY (CLEAR); PERITONEAL DIALYSATE FL COLOR COLORLESS (COLORLESS); SOURCE, BODY FLUID PERITONEAL DIALYSATE
[2021-07-24] MEDS ORDERED: (RENVELA) SEVELAMER **CARBONate** 800 MG TAB PO SCH (11:30)
[2021-07-24] MEDS: NORCO, ANEXSIA 5/325MG TABLET (HYDROcodone/ACETAMINOPHEN) PO PRN (12:40)
[2021-07-24 14:00] VITALS: BP 111/53
[2021-07-24] MEDS ORDERED: HEPARIN SOD (PORCINE) 5000UNITS/ML 1ML VIAL/SYRINGE IP ONE (14:00)
[2021-07-24] MEDS: SIMETHICONE 80MG CHEW TAB PO PRN (15:24)
[2021-07-24] MEDS: FAMOTIDINE 20 MG TAB PO SCH (17:15)
[2021-07-24] MEDS: ROSUVASTATIN 10 MG TAB (CRESTOR) PO SCH (17:15)
[2021-07-24 18:55] VITALS: BP 122/55
[2021-07-25 06:00] VITALS: BP 123/49
[2021-07-25] MEDS: NORCO, ANEXSIA 5/325MG TABLET (HYDROcodone/ACETAMINOPHEN) PO PRN (06:16)
[2021-07-25 07:07] LABS: APPEARANCE, BODY FLUID CLOUDY (CLEAR); PERITONEAL DIALYSATE FL COLOR PALE YELLOW (COLORLESS); SOURCE, BODY FLUID PERITONEAL DIALYSATE
[2021-07-25] MEDS: IPRATROPIUM 0.5MG/ALBUTEROL 2.5MG INH SOL UD 3ML (DUONEB) INH PRN ×2 (07:30→14:01)
[2021-07-25] MEDS: HumaLOG INSULIN (NovoLOG) PER UNIT SC SCH ×4 (07:30→21:00)
[2021-07-25] MEDS: (RENVELA) SEVELAMER **CARBONate** 800 MG TAB PO SCH ×3 (08:44→17:27)
[2021-07-25] MEDS: LEVEMIR (INSULIN DETEMIR) 1 UNITS/0.01ML SC SCH (08:45)
[2021-07-25] MEDS: NICOTINE 21MG/24HR 1 EA TRANSDERMAL TOP SCH (08:46)
[2021-07-25] MEDS: MIDODRINE 5 MG TAB PO SCH ×3 (08:46→17:28)
[2021-07-25] MEDS: DOCUSATE SODIUM 100MG CAPSULE PO SCH ×2 (08:47→21:52)
[2021-07-25] MEDS: AMIODARONE 200 MG TAB (PACERONE) PO SCH ×2 (08:47→21:52)
[2021-07-25] MEDS: OMEPRAZOLE 20MG CAP PO SCH (08:47)
[2021-07-25] MEDS: oxyBUTYnin 5 MG TAB PO SCH ×2 (08:47→21:52)
[2021-07-25] MEDS: APIXABAN 5 MG TAB (ELIQUIS) PO SCH ×2 (08:47→21:52)
[2021-07-25] MEDS: CETIRIZINE (ZyrTEC) 10 MG TAB PO SCH (08:47)
[2021-07-25] MEDS: MULTIVITAMINS/MINERALS THERAP 1 TAB PO SCH (08:48)
[2021-07-25] MEDS: FOLIC ACID 1 MG TAB PO SCH (08:48)
[2021-07-25] MEDS ORDERED: DARBEPOETIN 100 MCG/0.5 ML *NON-DIALYSIS* SYRINGE (J0881) SC SCH (09:00)
[2021-07-25 11:28] LABS: BASO % 0.2 % (0.0-1.0); EOS # 0.1 10^3/uL (0.0-0.5); EOS % 1.7 % (0.0-3.0); HEMATOCRIT 24.4 % (36.0-47.0); HEMOGLOBIN 7.7 g/dl (12.0-15.5); LYMPH # 0.5 10^3/uL (1.5-5.0); LYMPH % 8.4 % (24.0-44.0); MEAN CORPUSCULAR HEMOGLOBIN 27.6 pg (27.0-33.0); MEAN CORPUSCULAR HGB CONC 31.6 g/dl (32.0-36.5); MEAN CORPUSCULAR VOLUME 87.5 fl (80.0-96.0); MONO # 0.5 10^3/uL (0.0-0.8); MONO % 8.2 % (2.0-8.0); NEUTROPHILS # 5.2 10^3/uL (1.5-8.5); NEUTROPHILS % 81.2 % (36.0-66.0); PLATELET COUNT, AUTOMATED 102 10^3/uL (150-450); RED BLOOD COUNT 2.79 10^6/uL (4.00-5.40); WHITE BLOOD COUNT 6.3 10^3/uL (4.0-10.0)
[2021-07-25 12:18] LABS: ALBUMIN 2.2 GM/DL (3.2-5.2); BILIRUBIN,TOTAL 0.3 MG/DL (0.2-1.0); CALCIUM LEVEL 8.1 MG/DL (8.5-10.1); CREATININE FOR GFR 9.18 MG/DL (0.55-1.30); GLOMERULAR FILTRATION RATE 4.7 (>51); MAGNESIUM LEVEL 1.9 MG/DL (1.8-2.4); POTASSIUM SERUM 3.7 MEQ/L (3.5-5.1); TOTAL PROTEIN 5.3 GM/DL (6.4-8.2)
[2021-07-25 14:00] VITALS: BP 120/53
[2021-07-25] MEDS: ROSUVASTATIN 10 MG TAB (CRESTOR) PO SCH (17:27)
[2021-07-25] MEDS: FAMOTIDINE 20 MG TAB PO SCH (17:27)
[2021-07-25 18:00] VITALS: BP 118/50
[2021-07-25] MEDS ORDERED: VANCOMYCIN 1000MG/20ML VIAL IP ONE (22:00)
[2021-07-25] MEDS: GENTAMICIN SULF 80MG/2ML VIAL IP SCH (23:08)
[2021-07-26 05:33] VITALS: BP 117/51
[2021-07-26 07:03] LABS: APPEARANCE, BODY FLUID HAZY (CLEAR); PERITONEAL DIALYSATE FL COLOR PALE YELLOW (COLORLESS); SOURCE, BODY FLUID PERITONEAL DIALYSATE
[2021-07-26 07:12] LABS: BASO % 0.5 % (0.0-1.0); EOS # 0.3 10^3/uL (0.0-0.5); EOS % 4.4 % (0.0-3.0); HEMATOCRIT 25.2 % (36.0-47.0); LYMPH # 0.8 10^3/uL (1.5-5.0); LYMPH % 12.3 % (24.0-44.0); MEAN CORPUSCULAR HEMOGLOBIN 27.7 pg (27.0-33.0); MEAN CORPUSCULAR HGB CONC 31.7 g/dl (32.0-36.5); MEAN CORPUSCULAR VOLUME 87.2 fl (80.0-96.0); MONO # 0.7 10^3/uL (0.0-0.8); MONO % 10.1 % (2.0-8.0); NEUTROPHILS # 4.7 10^3/uL (1.5-8.5); NEUTROPHILS % 72.4 % (36.0-66.0); PLATELET COUNT, AUTOMATED 114 10^3/uL (150-450); RED BLOOD COUNT 2.89 10^6/uL (4.00-5.40); WHITE BLOOD COUNT 6.5 10^3/uL (4.0-10.0)
[2021-07-26 07:46] LABS: ALBUMIN 2.2 GM/DL (3.2-5.2); BILIRUBIN,TOTAL 0.4 MG/DL (0.2-1.0); CALCIUM LEVEL 7.7 MG/DL (8.5-10.1); CREATININE FOR GFR 8.75 MG/DL (0.55-1.30); MAGNESIUM LEVEL 1.7 MG/DL (1.8-2.4); POTASSIUM SERUM 3.6 MEQ/L (3.5-5.1); TOTAL PROTEIN 5.4 GM/DL (6.4-8.2); VANCOMYCIN RANDOM 25.4 UG/ML
[2021-07-26] MEDS: (RENVELA) SEVELAMER **CARBONate** 800 MG TAB PO SCH ×3 (08:00→17:12)
[2021-07-26] MEDS ORDERED: LevoFLOXacin IV 500 MG in IV 1 EA IV ONE (09:00)
[2021-07-26] MEDS ORDERED: HEPARIN SOD (PORCINE) 5000UNITS/ML 1ML VIAL/SYRINGE IP ONE (10:00)
[2021-07-26] MEDS: NICOTINE 21MG/24HR 1 EA TRANSDERMAL TOP SCH (10:36)
[2021-07-26] MEDS: LEVEMIR (INSULIN DETEMIR) 1 UNITS/0.01ML SC SCH (10:38)
[2021-07-26] MEDS: OMEPRAZOLE 20MG CAP PO SCH (10:39)
[2021-07-26] MEDS: HumaLOG INSULIN (NovoLOG) PER UNIT SC SCH ×4 (10:39→20:42)
[2021-07-26] MEDS: FOLIC ACID 1 MG TAB PO SCH (10:40)
[2021-07-26] MEDS: APIXABAN 5 MG TAB (ELIQUIS) PO SCH ×2 (10:40→20:48)
[2021-07-26] MEDS: MULTIVITAMINS/MINERALS THERAP 1 TAB PO SCH (10:40)
[2021-07-26] MEDS: oxyBUTYnin 5 MG TAB PO SCH ×2 (10:40→20:48)
[2021-07-26] MEDS: CETIRIZINE (ZyrTEC) 10 MG TAB PO SCH (10:40)
[2021-07-26] MEDS: AMIODARONE 200 MG TAB (PACERONE) PO SCH ×2 (10:41→20:49)
[2021-07-26] MEDS: DOCUSATE SODIUM 100MG CAPSULE PO SCH ×2 (10:41→20:48)
[2021-07-26] MEDS: MIDODRINE 5 MG TAB PO SCH ×3 (10:41→17:11)
[2021-07-26 13:16] LABS: APPEARANCE, URINE TURBID (CLEAR); BACTERIA, URINE AUTO 2+ (NEGATIVE); BILIRUBIN, URINE AUTO NEGATIVE (NEGATIVE); BLOOD, URINE BLOOD 1+ (NEGATIVE); COLOR, URINE AMBER (YELLOW); GLUCOSE, URINE (UA) AUTO 1+ mg/dL (NEGATIVE); KETONE, URINE AUTO NEGATIVE (NEGATIVE); LEUKOCYTE ESTERASE, URINE AUTO 3+ (NEGATIVE); NITRITE, URINE AUTO NEGATIVE (NEGATIVE); PROTEIN, URINE AUTO 2+ mg/dL (NEGATIVE); RBC, URINE AUTO 3 /HPF (0-3); RENAL EPITHELIAL CELLS 1 /HPF; SPECIFIC GRAVITY URINE AUTO 1.013 (1.002-1.035); SQUAMOUS EPITHELIAL CELL UR AU 69 /HPF (0-6); TRANSITIONAL EPITHELIAL AUTO 2 /HPF; UROBILINOGEN, URINE AUTO 0.2 mg/dL (0.0-2.0); WBC, URINE AUTO TNTC /HPF (0-3)
[2021-07-26 14:00] VITALS: BP 127/60
[2021-07-26] MEDS: ANORO ELIPTA INH SCH (15:35)
[2021-07-26] MEDS: ONDANSETRON 4MG TAB PO PRN (17:10)
[2021-07-26] MEDS: ROSUVASTATIN 10 MG TAB (CRESTOR) PO SCH (17:11)
[2021-07-26] MEDS: FAMOTIDINE 20 MG TAB PO SCH (17:11)
[2021-07-26 18:00] VITALS: BP 129/59
[2021-07-26] MEDS: SIMETHICONE 80MG CHEW TAB PO PRN (18:18)
[2021-07-26] MEDS: GENTAMICIN SULF 80MG/2ML VIAL IP SCH (23:38)
[2021-07-27] MEDS: IPRATROPIUM 0.5MG/ALBUTEROL 2.5MG INH SOL UD 3ML (DUONEB) INH PRN ×2 (00:35→22:17)
[2021-07-27 05:09] VITALS: BP 118/51
[2021-07-27] MEDS ORDERED: HEPARIN SOD (PORCINE) 5000UNITS/ML 1ML VIAL/SYRINGE IP ONE (06:00)
[2021-07-27] MEDS: ANORO ELIPTA INH SCH (07:20)
[2021-07-27 07:52] LABS: PERITONEAL DIALYSATE FL COLOR COLORLESS (COLORLESS); SOURCE, BODY FLUID PERITONEAL DIALYSATE
[2021-07-27 07:53] LABS: APPEARANCE, BODY FLUID HAZY (CLEAR)
[2021-07-27 08:23] LABS: BASO % 0.5 % (0.0-1.0); EOS # 0.3 10^3/uL (0.0-0.5); EOS % 4.4 % (0.0-3.0); HEMATOCRIT 25.2 % (36.0-47.0); HEMOGLOBIN 7.9 g/dl (12.0-15.5); LYMPH # 0.7 10^3/uL (1.5-5.0); MEAN CORPUSCULAR HEMOGLOBIN 27.4 pg (27.0-33.0); MEAN CORPUSCULAR HGB CONC 31.3 g/dl (32.0-36.5); MEAN CORPUSCULAR VOLUME 87.5 fl (80.0-96.0); MONO # 0.6 10^3/uL (0.0-0.8); MONO % 11.2 % (2.0-8.0); NEUTROPHILS % 70.5 % (36.0-66.0); PLATELET COUNT, AUTOMATED 108 10^3/uL (150-450); RED BLOOD COUNT 2.88 10^6/uL (4.00-5.40); WHITE BLOOD COUNT 5.6 10^3/uL (4.0-10.0)
[2021-07-27] MEDS: OMEPRAZOLE 20MG CAP PO SCH (08:30)
[2021-07-27] MEDS: (RENVELA) SEVELAMER **CARBONate** 800 MG TAB PO SCH ×3 (08:30→17:56)
[2021-07-27] MEDS: NICOTINE 21MG/24HR 1 EA TRANSDERMAL TOP SCH (08:30)
[2021-07-27] MEDS: DOCUSATE SODIUM 100MG CAPSULE PO SCH ×2 (08:31→20:11)
[2021-07-27] MEDS: MIDODRINE 5 MG TAB PO SCH ×4 (08:31→17:55)
[2021-07-27] MEDS: CETIRIZINE (ZyrTEC) 10 MG TAB PO SCH (08:31)
[2021-07-27] MEDS: oxyBUTYnin 5 MG TAB PO SCH ×2 (08:31→20:11)
[2021-07-27] MEDS: AMIODARONE 200 MG TAB (PACERONE) PO SCH ×2 (08:31→20:11)
[2021-07-27] MEDS: APIXABAN 5 MG TAB (ELIQUIS) PO SCH ×2 (08:31→20:11)
[2021-07-27] MEDS: MULTIVITAMINS/MINERALS THERAP 1 TAB PO SCH (08:32)
[2021-07-27] MEDS: HumaLOG INSULIN (NovoLOG) PER UNIT SC SCH ×4 (08:32→19:53)
[2021-07-27] MEDS: FOLIC ACID 1 MG TAB PO SCH (08:32)
[2021-07-27] MEDS: LEVEMIR (INSULIN DETEMIR) 1 UNITS/0.01ML SC SCH (08:36)
[2021-07-27] MEDS ORDERED: LevoFLOXacin IV 250 MG in IV 1 EA IV SCH (09:00)
[2021-07-27 09:40] LABS: ALBUMIN 2.1 GM/DL (3.2-5.2); BILIRUBIN,TOTAL 0.5 MG/DL (0.2-1.0); CALCIUM LEVEL 7.8 MG/DL (8.5-10.1); CREATININE FOR GFR 8.13 MG/DL (0.55-1.30); GLOMERULAR FILTRATION RATE 5.4 (>51); MAGNESIUM LEVEL 1.7 MG/DL (1.8-2.4); POTASSIUM SERUM 3.4 MEQ/L (3.5-5.1); TOTAL PROTEIN 5.3 GM/DL (6.4-8.2)
[2021-07-27] MEDS: LevoFLOXacin IV 250 MG in IV 1 EA IV SCH (11:46)
[2021-07-27] MEDS: MAG SULF 1GM/100ML (MAG RUN) 1 GM in IV 1 EA IV SCH ×2 (13:06→13:13)
[2021-07-27] MEDS: POTASSIUM CHLORIDE 10MEQ SR TABLET PO SCH (13:07)
[2021-07-27] MEDS: CINACALCET 30 MG TAB (SENSIPAR) PO SCH (13:07)
[2021-07-27] MEDS ORDERED: MOM 30ML SUSPENSION UDC PO ONE (13:55)
[2021-07-27 14:00] VITALS: BP 139/76
[2021-07-27] MEDS: ROSUVASTATIN 10 MG TAB (CRESTOR) PO SCH (17:54)
[2021-07-27] MEDS: FAMOTIDINE 20 MG TAB PO SCH (17:55)
[2021-07-27 19:53] VITALS: BP 113/58
[2021-07-27] MEDS: MIRALAX *UNIT DOSE* 17GM PACKET PO SCH (20:11)
[2021-07-27] MEDS: GENTAMICIN SULF 80MG/2ML VIAL IP SCH (22:17)
[2021-07-28 05:03] VITALS: BP 112/56
[2021-07-28] MEDS: ANORO ELIPTA INH SCH (07:26)
[2021-07-28 07:42] LABS: APPEARANCE, BODY FLUID HAZY (CLEAR); PERITONEAL DIALYSATE FL COLOR COLORLESS (COLORLESS); SOURCE, BODY FLUID PERITONEAL DIALYSATE
[2021-07-28 08:35] LABS: BASO % 0.4 % (0.0-1.0); EOS # 0.2 10^3/uL (0.0-0.5); HEMATOCRIT 25.2 % (36.0-47.0); HEMOGLOBIN 7.8 g/dl (12.0-15.5); LYMPH # 0.6 10^3/uL (1.5-5.0); LYMPH % 11.2 % (24.0-44.0); MEAN CORPUSCULAR HEMOGLOBIN 26.8 pg (27.0-33.0); MEAN CORPUSCULAR VOLUME 86.6 fl (80.0-96.0); MONO # 0.6 10^3/uL (0.0-0.8); NEUTROPHILS # 4.3 10^3/uL (1.5-8.5); PLATELET COUNT, AUTOMATED 108 10^3/uL (150-450); RED BLOOD COUNT 2.91 10^6/uL (4.00-5.40); WHITE BLOOD COUNT 5.7 10^3/uL (4.0-10.0)
[2021-07-28] MEDS: MULTIVITAMINS/MINERALS THERAP 1 TAB PO SCH (08:40)
[2021-07-28] MEDS: CINACALCET 30 MG TAB (SENSIPAR) PO SCH (08:41)
[2021-07-28] MEDS: DOCUSATE SODIUM 100MG CAPSULE PO SCH ×2 (08:41→20:57)
[2021-07-28] MEDS: (RENVELA) SEVELAMER **CARBONate** 800 MG TAB PO SCH ×3 (08:41→17:47)
[2021-07-28] MEDS: FOLIC ACID 1 MG TAB PO SCH (08:41)
[2021-07-28] MEDS: CETIRIZINE (ZyrTEC) 10 MG TAB PO SCH (08:41)
[2021-07-28] MEDS: oxyBUTYnin 5 MG TAB PO SCH ×2 (08:41→20:57)
[2021-07-28] MEDS: OMEPRAZOLE 20MG CAP PO SCH (08:41)
[2021-07-28] MEDS: AMIODARONE 200 MG TAB (PACERONE) PO SCH ×2 (08:42→20:57)
[2021-07-28] MEDS: POTASSIUM CHLORIDE 10MEQ SR TABLET PO SCH (08:42)
[2021-07-28] MEDS: APIXABAN 5 MG TAB (ELIQUIS) PO SCH ×2 (08:42→20:57)
[2021-07-28] MEDS: LEVEMIR (INSULIN DETEMIR) 1 UNITS/0.01ML SC SCH (08:43)
[2021-07-28] MEDS: MIDODRINE 5 MG TAB PO SCH ×3 (08:43→17:49)
[2021-07-28] MEDS: NICOTINE 21MG/24HR 1 EA TRANSDERMAL TOP SCH (08:44)
[2021-07-28] MEDS: HumaLOG INSULIN (NovoLOG) PER UNIT SC SCH ×4 (08:44→19:50)
[2021-07-28 09:10] LABS: ALBUMIN 2.1 GM/DL (3.2-5.2); BILIRUBIN,TOTAL 0.3 MG/DL (0.2-1.0); CALCIUM LEVEL 7.8 MG/DL (8.5-10.1); CREATININE FOR GFR 7.36 MG/DL (0.55-1.30); GLOMERULAR FILTRATION RATE 6.1 (>51); MAGNESIUM LEVEL 1.9 MG/DL (1.8-2.4); POTASSIUM SERUM 3.8 MEQ/L (3.5-5.1); TOTAL PROTEIN 5.3 GM/DL (6.4-8.2)
[2021-07-28] MEDS: LevoFLOXacin IV 250 MG in IV 1 EA IV SCH (10:11)
[2021-07-28] MEDS: ONDANSETRON 4MG TAB PO PRN (11:09)
[2021-07-28] MEDS ORDERED: BISACODYL 10 MG SUPP PR ONE (13:00)
[2021-07-28] MEDS ORDERED: LACTULOSE 20 GM/30 ML SYRUP UD PO ONE (13:00)
[2021-07-28] MEDS ORDERED: MOM 30ML SUSPENSION UDC PO ONE (13:00)
[2021-07-28 14:00] VITALS: BP 105/58
[2021-07-28] MEDS: ACETAMINOPHEN TAB 650MG DOSE (2X325MG) PO PRN ×2 (15:07→15:45)
[2021-07-28] MEDS: ROSUVASTATIN 10 MG TAB (CRESTOR) PO SCH (17:47)
[2021-07-28] MEDS: FAMOTIDINE 20 MG TAB PO SCH (17:47)
[2021-07-28 20:15] VITALS: BP 117/57
[2021-07-28] MEDS: MIRALAX *UNIT DOSE* 17GM PACKET PO SCH (20:56)
[2021-07-28] MEDS: GENTAMICIN SULF 80MG/2ML VIAL IP SCH (21:58)
[2021-07-28] MEDS: IPRATROPIUM 0.5MG/ALBUTEROL 2.5MG INH SOL UD 3ML (DUONEB) INH PRN (22:50)
[2021-07-29 06:00] VITALS: BP 105/55
[2021-07-29 06:52] LABS: APPEARANCE, BODY FLUID CLEAR (CLEAR); PERITONEAL DIALYSATE FL COLOR COLORLESS (COLORLESS); SOURCE, BODY FLUID PERITONEAL DIALYSATE
[2021-07-29] MEDS: ANORO ELIPTA INH SCH (07:50)
[2021-07-29] MEDS: LEVEMIR (INSULIN DETEMIR) 1 UNITS/0.01ML SC SCH (08:37)
[2021-07-29] MEDS: HumaLOG INSULIN (NovoLOG) PER UNIT SC SCH ×2 (08:37→11:51)
[2021-07-29] MEDS: oxyBUTYnin 5 MG TAB PO SCH (08:38)
[2021-07-29] MEDS: NICOTINE 21MG/24HR 1 EA TRANSDERMAL TOP SCH (08:38)
[2021-07-29] MEDS: FOLIC ACID 1 MG TAB PO SCH (08:38)
[2021-07-29] MEDS: OMEPRAZOLE 20MG CAP PO SCH (08:38)
[2021-07-29] MEDS: POTASSIUM CHLORIDE 10MEQ SR TABLET PO SCH (08:38)
[2021-07-29] MEDS: (RENVELA) SEVELAMER **CARBONate** 800 MG TAB PO SCH ×2 (08:38→11:51)
[2021-07-29] MEDS: DOCUSATE SODIUM 100MG CAPSULE PO SCH (08:38)
[2021-07-29] MEDS: CINACALCET 30 MG TAB (SENSIPAR) PO SCH (08:38)
[2021-07-29] MEDS: CETIRIZINE (ZyrTEC) 10 MG TAB PO SCH (08:38)
[2021-07-29] MEDS: AMIODARONE 200 MG TAB (PACERONE) PO SCH (08:39)
[2021-07-29] MEDS: APIXABAN 5 MG TAB (ELIQUIS) PO SCH (08:39)
[2021-07-29] MEDS: MIDODRINE 5 MG TAB PO SCH ×2 (08:39→12:41)
[2021-07-29] MEDS: MULTIVITAMINS/MINERALS THERAP 1 TAB PO SCH (08:39)
[2021-07-29 08:44] LABS: BASO % 0.6 % (0.0-1.0); EOS # 0.2 10^3/uL (0.0-0.5); EOS % 3.5 % (0.0-3.0); HEMATOCRIT 27.4 % (36.0-47.0); HEMOGLOBIN 8.7 g/dl (12.0-15.5); LYMPH % 15.5 % (24.0-44.0); MEAN CORPUSCULAR HEMOGLOBIN 27.9 pg (27.0-33.0); MEAN CORPUSCULAR HGB CONC 31.8 g/dl (32.0-36.5); MEAN CORPUSCULAR VOLUME 87.8 fl (80.0-96.0); MONO # 0.5 10^3/uL (0.0-0.8); MONO % 8.2 % (2.0-8.0); NEUTROPHILS # 4.6 10^3/uL (1.5-8.5); NEUTROPHILS % 71.6 % (36.0-66.0); PLATELET COUNT, AUTOMATED 122 10^3/uL (150-450); RED BLOOD COUNT 3.12 10^6/uL (4.00-5.40); WHITE BLOOD COUNT 6.4 10^3/uL (4.0-10.0)
[2021-07-29 09:23] LABS: ALBUMIN 2.3 GM/DL (3.2-5.2); BILIRUBIN,TOTAL 0.3 MG/DL (0.2-1.0); CALCIUM LEVEL 8.1 MG/DL (8.5-10.1); CREATININE FOR GFR 7.38 MG/DL (0.55-1.30); GLOMERULAR FILTRATION RATE 6.1 (>51); POTASSIUM SERUM 3.8 MEQ/L (3.5-5.1); TOTAL PROTEIN 5.7 GM/DL (6.4-8.2)
[2021-07-29] MEDS: LevoFLOXacin IV 250 MG in IV 1 EA IV SCH (10:16)
[2021-07-29] MEDS ORDERED: CINA30TA5 PO (13:17)
[2021-07-29] MEDS ORDERED: LEVO250T3 PO (13:17)
[2021-07-29] MEDS ORDERED: MIRA1POW3 PO (13:17)
[2021-07-29] MEDS ORDERED: POTA-136 PO (13:21)
== END 2021-07-29 14:55 | disposition home health service (06) | DRG 919 ==
LOC: M ED 00:44 → M ED INP 10:36 → M ICU 07-24 01:35 → M MSPAV 07-24 17:00
PROVIDERS: ADMIT Family Medicine; ATTEND Family Medicine
DX: T85.71XA Infection and inflammatory reaction due to peritoneal dialysis catheter, initial encounter (principal); A41.9 Sepsis, unspecified organism; N18.6 End stage renal disease; K65.8 Other peritonitis; I50.32 Chronic diastolic (congestive) heart failure; Z68.42 Body mass index [BMI] 45.0-49.9, adult; I13.2 Hypertensive heart and chronic kidney disease with heart failure and with stage 5 chronic kidney disease, or end stage renal disease; E87.1 Hypo-osmolality and hyponatremia; E78.5 Hyperlipidemia, unspecified; Z99.2 Dependence on renal dialysis; G47.33 Obstructive sleep apnea (adult) (pediatric); E11.22 Type 2 diabetes mellitus with diabetic chronic kidney disease; I48.0 Paroxysmal atrial fibrillation; K21.9 Gastro-esophageal reflux disease without esophagitis; E66.01 Morbid (severe) obesity due to excess calories; J44.9 Chronic obstructive pulmonary disease, unspecified; B96.1 Klebsiella pneumoniae [K. pneumoniae] as the cause of diseases classified elsewhere; F41.9 Anxiety disorder, unspecified; Z79.899 Other long term (current) drug therapy; Z88.0 Allergy status to penicillin; Z88.2 Allergy status to sulfonamides; Z88.6 Allergy status to analgesic agent; Z88.8 Allergy status to other drugs, medicaments and biological substances; Z91.040 Latex allergy status; Z79.01 Long term (current) use of anticoagulants; Z87.891 Personal history of nicotine dependence; D63.1 Anemia in chronic kidney disease; N93.9 Abnormal uterine and vaginal bleeding, unspecified; Y84.8 Other medical procedures as the cause of abnormal reaction of the patient, or of later complication, without mention of misadventure at the time of the procedure

== ENCOUNTER 2022-01-04 13:47 | Inpatient (IN) | payer MEDICARE, OTHER ==
[~2022-01-04] VITALS: Ht 157.5 cm; Wt 114.9 kg
[2022-01-04] MEDS: TORSEMIDE 100 MG TAB PO SCH (09:00)
[~2022-01-04 13:47] MED LIST changes: +AMIO200T49 PO; +CINA30TA5 PO; +CVS1500T PO; +FOLI1TAB11 PO; +HYDR-3713 PO; +LEVO1TAB38 PO; +MIDO10TA PO; +MIRA1POW3 PO; +MIRA3350 PO; +NICO1DIS11 TOP; +NOVOINJ3 SC; +ONDA-83 PO; +POTA-136 PO
[2022-01-04] MEDS ORDERED: SENN1TAB41 PO (14:09)
[2022-01-04] MEDS ORDERED: SYNT50TA PO (14:09)
[2022-01-04] MEDS ORDERED: POTA10CA32 PO (14:09)
[2022-01-04] MEDS ORDERED: BUSP5TA PO (14:09)
[2022-01-04] MEDS ORDERED: TORS100T PO (14:09)
[2022-01-04] MEDS ORDERED: ASCO500T PO (14:09)
[2022-01-04] MEDS ORDERED: NS 250 ML IV ONE (14:40)
[2022-01-04 15:17] LABS: BASO # 0.1 10^3/uL (0.0-0.2); BASO % 0.6 % (0.0-1.0); EOS # 0.1 10^3/uL (0.0-0.5); EOS % 1.2 % (0.0-3.0); HEMATOCRIT 30.5 % (36.0-47.0); HEMOGLOBIN 9.6 g/dl (12.0-15.5); LYMPH % 12.3 % (24.0-44.0); MEAN CORPUSCULAR HEMOGLOBIN 28.8 pg (27.0-33.0); MEAN CORPUSCULAR HGB CONC 31.5 g/dl (32.0-36.5); MEAN CORPUSCULAR VOLUME 91.6 fl (80.0-96.0); MONO # 0.6 10^3/uL (0.0-0.8); MONO % 7.5 % (2.0-8.0); NEUTROPHILS # 6.1 10^3/uL (1.5-8.5); NEUTROPHILS % 78.1 % (36.0-66.0); PLATELET COUNT, AUTOMATED 134 10^3/uL (150-450); RED BLOOD COUNT 3.33 10^6/uL (4.00-5.40); WHITE BLOOD COUNT 7.7 10^3/uL (4.0-10.0)
[2022-01-04 15:31] LABS: INR 1.27; PROTHROMBIN TIME 16.3 SECONDS (12.7-14.5)
[2022-01-04 15:32] LABS: PARTIAL THROMBOPLASTIN TIME 37.1 SECONDS (25.9-37.0)
[2022-01-04 15:49] LABS: RSV AMPLIFICATION NEGATIVE (NEGATIVE)
[2022-01-04 15:53] LABS: CK-MB VALUE MASS 1.4 NG/ML (<3.6); MB/CK RELATIVE INDEX 2.03 (< OR =4)
[2022-01-04] MEDS ORDERED: POLY510P14 PO (15:56)
[2022-01-04] MEDS ORDERED: HOME MED LIST COMPLETE! XX SCH (16:00)
[2022-01-04 16:03] LABS: ALT/SGPT 26 U/L (12-78); BLOOD UREA NITROGEN 76 MG/DL (7-18); CALCIUM LEVEL 8.4 MG/DL (8.5-10.1); CARBON DIOXIDE LEVEL 28 MEQ/L (21-32); CHLORIDE LEVEL 92 MEQ/L (98-107); CREATININE FOR GFR 9.71 MG/DL (0.55-1.30); GLOMERULAR FILTRATION RATE 4.4 (>51); GLUCOSE, FASTING 154 MG/DL (70-100); POTASSIUM SERUM 5.7 MEQ/L (3.5-5.1); SODIUM LEVEL 126 MEQ/L (136-145)
[2022-01-04 16:04] LABS: ALBUMIN 2.8 GM/DL (3.2-5.2); BILIRUBIN,DIRECT < 0.1 MG/DL (0.0-0.2); BILIRUBIN,TOTAL 0.2 MG/DL (0.2-1.0); FREE T4 0.98 NG/DL (0.76-1.46); LIPASE 154 U/L (73-393); MAGNESIUM LEVEL 1.8 MG/DL (1.8-2.4); NT-PRO BNP 7855 PG/ML (<125); TOTAL PROTEIN 6.6 GM/DL (6.4-8.2)
[2022-01-04] MEDS ORDERED: MIDODRINE 5 MG TAB PO STA (16:45)
[2022-01-04] MEDS ORDERED: GLUCAGON INJ 1MG VIAL SC PRN (17:25)
[2022-01-04] MEDS ORDERED: MAALOX 30 ML SUSP *UDC PO PRN (17:25)
[2022-01-04] MEDS ORDERED: MOM 30ML SUSPENSION UDC PO PRN (17:25)
[2022-01-04] MEDS ORDERED: DEXTROSE 50% 50 ML SYRINGE IV PRN (17:25)
[2022-01-04] MEDS ORDERED: ACETAMINOPHEN TAB 650MG DOSE (2X325MG) PO PRN (17:25)
[2022-01-04] MEDS ORDERED: GLUCOSE 4GM CHEW TABLET PO PRN (17:25)
[2022-01-04] MEDS ORDERED: (RENVELA) SEVELAMER **CARBONate** 800 MG TAB PO PRN (17:25)
[2022-01-04] MEDS ORDERED: CALCIUM GLUCONATE 1,000 MG in D5W MINI-BAG PLUS 100 ML IV ONE (17:25)
[2022-01-04] MEDS ORDERED: (RENVELA) SEVELAMER **CARBONate** 800 MG TAB PO SCH (18:00)
[2022-01-04] MEDS ORDERED: SOD POLYSTYRENE SULFONATE SUSP 15GM 60ML UD PO ONE (18:00)
[2022-01-04] MEDS ORDERED: methylPREDNISolone 125MG 2ML VIAL IV ONE (18:20)
[2022-01-04] MEDS ORDERED: PILL CUTTER 1 EACH XX PRN (18:40)
[2022-01-04] MEDS: ROSUVASTATIN 10 MG TAB (CRESTOR) PO SCH (19:17)
[2022-01-04] MEDS: INSULIN LISPRO (NovoLOG) PER UNIT SC SCH ×2 (19:22→20:52)
[2022-01-04 19:27] LABS: CK-MB VALUE MASS 1.6 NG/ML (<3.6); MB/CK RELATIVE INDEX 1.93 (< OR =4)
[2022-01-04 20:00] VITALS: BP 132/59
[2022-01-04 21:00] VITALS: BP 119/56
[2022-01-04] MEDS: DOCUSATE SODIUM 100MG CAPSULE PO SCH (21:08)
[2022-01-04] MEDS: oxyBUTYnin 5 MG TAB PO SCH (21:08)
[2022-01-04] MEDS: busPIRone 5 MG TAB PO SCH (21:08)
[2022-01-04] MEDS: MIRALAX *UNIT DOSE* 17GM PACKET PO SCH (21:08)
[2022-01-04] MEDS: ALBUTEROL SULFATE 2.5 MG/0.5 ML INH NEB SOLN INH PRN (21:20)
[2022-01-04 22:00] VITALS: BP 139/59
[2022-01-04 22:12] LABS: CK-MB VALUE MASS 1.9 NG/ML (<3.6); MB/CK RELATIVE INDEX 2.21 (< OR =4)
[2022-01-04 23:00] VITALS: BP 98/48
[2022-01-05] VITALS (11 sets, daily range): BP systolic 102–158; BP diastolic 49–70
[2022-01-05 05:10] LABS: BASO % 0.5 % (0.0-1.0); EOS # 0.1 10^3/uL (0.0-0.5); EOS % 2.1 % (0.0-3.0); HEMATOCRIT 27.4 % (36.0-47.0); HEMOGLOBIN 8.5 g/dl (12.0-15.5); LYMPH # 1.1 10^3/uL (1.5-5.0); LYMPH % 19.7 % (24.0-44.0); MEAN CORPUSCULAR HEMOGLOBIN 28.6 pg (27.0-33.0); MEAN CORPUSCULAR VOLUME 92.3 fl (80.0-96.0); MONO # 0.6 10^3/uL (0.0-0.8); MONO % 9.8 % (2.0-8.0); NEUTROPHILS # 3.9 10^3/uL (1.5-8.5); NEUTROPHILS % 67.4 % (36.0-66.0); PLATELET COUNT, AUTOMATED 121 10^3/uL (150-450); RED BLOOD COUNT 2.97 10^6/uL (4.00-5.40); WHITE BLOOD COUNT 5.8 10^3/uL (4.0-10.0)
[2022-01-05] MEDS: LEVOTHYROXINE 50MCG TABLET (0.05MG) PO SCH (06:06)
[2022-01-05 06:49] LABS: CALCIUM LEVEL 8.2 MG/DL (8.5-10.1); CREATININE FOR GFR 9.73 MG/DL (0.55-1.30); GLOMERULAR FILTRATION RATE 4.4 (>51); MAGNESIUM LEVEL 1.8 MG/DL (1.8-2.4); POTASSIUM SERUM 4.7 MEQ/L (3.5-5.1)
[2022-01-05] MEDS ORDERED: ONDANSETRON 4MG ORAL DISINTEGRATING TAB PO ONE (07:00)
[2022-01-05] MEDS: INSULIN LISPRO (NovoLOG) PER UNIT SC SCH ×4 (07:30→21:00)
[2022-01-05] MEDS: LEVEMIR (INSULIN DETEMIR) 1 UNITS/0.01ML SC SCH (08:37)
[2022-01-05] MEDS: CETIRIZINE (ZyrTEC) 10 MG TAB PO SCH (08:38)
[2022-01-05] MEDS: DOCUSATE SODIUM 100MG CAPSULE PO SCH ×2 (08:38→21:50)
[2022-01-05] MEDS: busPIRone 5 MG TAB PO SCH ×3 (08:38→21:50)
[2022-01-05] MEDS: FOLIC ACID 1MG TAB PO SCH (08:38)
[2022-01-05] MEDS: MIDODRINE 5 MG TAB PO SCH ×3 (08:39→17:03)
[2022-01-05] MEDS: ASCORBIC ACID 500 MG TAB PO SCH (08:39)
[2022-01-05] MEDS: (RENVELA) SEVELAMER **CARBONate** 800 MG TAB PO SCH ×3 (08:39→17:04)
[2022-01-05] MEDS: TORSEMIDE 100 MG TAB PO SCH (08:39)
[2022-01-05] MEDS: oxyBUTYnin 5 MG TAB PO SCH ×2 (08:40→21:50)
[2022-01-05] MEDS: MULTIVITAMINS/MINERALS THERAP 1 TAB PO SCH (08:40)
[2022-01-05] MEDS: OMEPRAZOLE 20MG CAP PO SCH (08:40)
[2022-01-05] MEDS: NICOTINE 21MG/24HR 1 EA TRANSDERMAL TOP SCH (08:40)
[2022-01-05] MEDS: guaiFENesin ER 600 MG TAB PO SCH (17:04)
[2022-01-05] MEDS: ROSUVASTATIN 10 MG TAB (CRESTOR) PO SCH (17:07)
[2022-01-05] MEDS ORDERED: FAMOTIDINE 20 MG TAB PO SCH (18:00)
[2022-01-05] MEDS ORDERED: METOCLOPRAMIDE INJ 10MG/2ML VIAL (J2765 PER 1) IV ONE (20:00)
[2022-01-05] MEDS: ALBUTEROL SULFATE 2.5 MG/0.5 ML INH NEB SOLN INH PRN (20:05)
[2022-01-05] MEDS: MIRALAX *UNIT DOSE* 17GM PACKET PO SCH (21:51)
[2022-01-06] VITALS: BP 151/66
[2022-01-06 04:00] VITALS: BP 156/73
[2022-01-06 05:47] LABS: BASO % 0.7 % (0.0-1.0); EOS # 0.1 10^3/uL (0.0-0.5); EOS % 1.8 % (0.0-3.0); HEMATOCRIT 27.1 % (36.0-47.0); HEMOGLOBIN 8.6 g/dl (12.0-15.5); LYMPH # 1.3 10^3/uL (1.5-5.0); LYMPH % 20.9 % (24.0-44.0); MEAN CORPUSCULAR HEMOGLOBIN 28.8 pg (27.0-33.0); MEAN CORPUSCULAR HGB CONC 31.7 g/dl (32.0-36.5); MEAN CORPUSCULAR VOLUME 90.6 fl (80.0-96.0); MONO # 0.7 10^3/uL (0.0-0.8); MONO % 11.5 % (2.0-8.0); NEUTROPHILS # 3.9 10^3/uL (1.5-8.5); NEUTROPHILS % 64.8 % (36.0-66.0); PLATELET COUNT, AUTOMATED 114 10^3/uL (150-450); RED BLOOD COUNT 2.99 10^6/uL (4.00-5.40); WHITE BLOOD COUNT 6.1 10^3/uL (4.0-10.0)
[2022-01-06] MEDS: LEVOTHYROXINE 50MCG TABLET (0.05MG) PO SCH (05:57)
[2022-01-06 06:34] LABS: CALCIUM LEVEL 8.5 MG/DL (8.5-10.1); CREATININE FOR GFR 9.22 MG/DL (0.55-1.30); GLOMERULAR FILTRATION RATE 4.7 (>51); MAGNESIUM LEVEL 1.8 MG/DL (1.8-2.4); POTASSIUM SERUM 4.7 MEQ/L (3.5-5.1)
[2022-01-06] MEDS: INSULIN LISPRO (NovoLOG) PER UNIT SC SCH (07:30)
[2022-01-06] MEDS ORDERED: MUCI600T31 PO (07:49)
[2022-01-06 08:00] VITALS: BP 121/56
[2022-01-06] MEDS: TORSEMIDE 100 MG TAB PO SCH (08:38)
[2022-01-06] MEDS: oxyBUTYnin 5 MG TAB PO SCH (08:38)
[2022-01-06] MEDS: busPIRone 5 MG TAB PO SCH (08:39)
[2022-01-06] MEDS: CETIRIZINE (ZyrTEC) 10 MG TAB PO SCH (08:39)
[2022-01-06] MEDS: DOCUSATE SODIUM 100MG CAPSULE PO SCH (08:39)
[2022-01-06] MEDS: ASCORBIC ACID 500 MG TAB PO SCH (08:39)
[2022-01-06] MEDS: FOLIC ACID 1MG TAB PO SCH (08:39)
[2022-01-06] MEDS: (RENVELA) SEVELAMER **CARBONate** 800 MG TAB PO SCH (08:39)
[2022-01-06] MEDS: MIDODRINE 5 MG TAB PO SCH ×2 (08:41→11:25)
[2022-01-06] MEDS: OMEPRAZOLE 20MG CAP PO SCH (08:41)
[2022-01-06] MEDS: guaiFENesin ER 600 MG TAB PO SCH (08:41)
[2022-01-06] MEDS: MULTIVITAMINS/MINERALS THERAP 1 TAB PO SCH (08:41)
[2022-01-06] MEDS: LEVEMIR (INSULIN DETEMIR) 1 UNITS/0.01ML SC SCH (08:43)
[2022-01-06] MEDS: NICOTINE 21MG/24HR 1 EA TRANSDERMAL TOP SCH (08:44)
[2022-01-06 08:54] LABS: CORTISOL BASELINE 9.8 UG/DL (4.3-22.4)
[2022-01-06] MEDS ORDERED: DARBEPOETIN 100 MCG/0.5 ML *NON-DIALYSIS* SYRINGE (J0881) SC SCH (09:00)
[2022-01-06] MEDS ORDERED: APIXABAN 5 MG TAB (ELIQUIS) PO SCH (09:00)
== END 2022-01-06 11:35 | disposition home or self-care (01) | DRG 308 ==
LOC: M ED 13:47 → M ED INP 17:25 → ENRESERV 18:23 → M ICU 19:44
PROVIDERS: ADMIT Internal Medicine; ATTEND Internal Medicine
DX: I49.8 Other specified cardiac arrhythmias (principal); N18.6 End stage renal disease; I50.32 Chronic diastolic (congestive) heart failure; J96.11 Chronic respiratory failure with hypoxia; E87.1 Hypo-osmolality and hyponatremia; J45.901 Unspecified asthma with (acute) exacerbation; J44.1 Chronic obstructive pulmonary disease with (acute) exacerbation; I48.0 Paroxysmal atrial fibrillation; I95.9 Hypotension, unspecified; G47.33 Obstructive sleep apnea (adult) (pediatric); Z99.81 Dependence on supplemental oxygen; Z99.2 Dependence on renal dialysis; E03.9 Hypothyroidism, unspecified; D63.1 Anemia in chronic kidney disease; F41.9 Anxiety disorder, unspecified; K21.9 Gastro-esophageal reflux disease without esophagitis; E87.5 Hyperkalemia; Z20.822 Contact with and (suspected) exposure to COVID-19; Z79.4 Long term (current) use of insulin; Z79.890 Hormone replacement therapy; Z88.0 Allergy status to penicillin; Z88.1 Allergy status to other antibiotic agents; Z88.2 Allergy status to sulfonamides; Z88.8 Allergy status to other drugs, medicaments and biological substances; Z91.040 Latex allergy status; Z88.6 Allergy status to analgesic agent; F17.200 Nicotine dependence, unspecified, uncomplicated; T46.2X5A Adverse effect of other antidysrhythmic drugs, initial encounter; E11.22 Type 2 diabetes mellitus with diabetic chronic kidney disease; Z91.19 Patient's noncompliance with other medical treatment and regimen

== ENCOUNTER 2022-04-15 14:25 | Inpatient (IN) | payer MEDICARE, OTHER ==
[~2022-04-15] VITALS: Ht 157.5 cm; Wt 121.2 kg
[~2022-04-15 14:25] MED LIST changes: +ASCO500C3 PO; +ASCO500T PO; +POLY510P14 PO; +POTA10CA33 PO; -PURE500C5 PO; +SENN1TAB41 PO; +SYNT50TA PO
[2022-04-15 20:33] LABS: BASO % 0.1 % (0.0-1.0); EOS % 0.4 % (0.0-3.0); HEMATOCRIT 28.5 % (36.0-47.0); HEMOGLOBIN 8.9 g/dl (12.0-15.5); LYMPH # 1.6 10^3/uL (1.5-5.0); LYMPH % 23.3 % (24.0-44.0); MEAN CORPUSCULAR HEMOGLOBIN 28.1 pg (27.0-33.0); MEAN CORPUSCULAR HGB CONC 31.2 g/dl (32.0-36.5); MEAN CORPUSCULAR VOLUME 89.9 fl (80.0-96.0); MONO # 0.7 10^3/uL (0.0-0.8); MONO % 10.5 % (2.0-8.0); NEUTROPHILS # 4.5 10^3/uL (1.5-8.5); NEUTROPHILS % 65.1 % (36.0-66.0); PLATELET COUNT, AUTOMATED 136 10^3/uL (150-450); RED BLOOD COUNT 3.17 10^6/uL (4.00-5.40); WHITE BLOOD COUNT 6.9 10^3/uL (4.0-10.0)
[2022-04-15 20:34] LABS: CK-MB VALUE MASS 1.9 NG/ML (<3.6); LIPASE 47 U/L (12-53)
[2022-04-15 20:37] LABS: BILIRUBIN,DIRECT < 0.1 MG/DL (<0.4); CPK CREATINE PHOSPHOKINASE 143 U/L (34-145); MB/CK RELATIVE INDEX 1.32 (< OR =4)
[2022-04-15 20:47] LABS: ALBUMIN 2.7 G/DL (3.2-5.2); ALKALINE PHOSPHATASE 189 U/L (46-116); ALT/SGPT 13 U/L (7.0-40); AST/SGOT 11 U/L (<34); BILIRUBIN,TOTAL 0.2 MG/DL (0.3-1.2); BLOOD UREA NITROGEN 63 MG/DL (9-23); CALCIUM LEVEL 6.5 MG/DL (8.5-10.1); CARBON DIOXIDE LEVEL 25 MMOL/L (20-31); CHLORIDE LEVEL 92 MMOL/L (98-107); CREATININE FOR GFR 11.07 MG/DL (0.55-1.30); GLOMERULAR FILTRATION RATE 3.8 (>51); GLUCOSE, FASTING 80 MG/DL (60-100); POTASSIUM SERUM 3.8 MMOL/L (3.5-5.1); SODIUM LEVEL 134 MMOL/L (136-145); TOTAL PROTEIN 6.6 G/DL (5.7-8.2)
[2022-04-15] MEDS ORDERED: INSULIN LISPRO (NovoLOG) PER UNIT SC SCH (21:00)
[2022-04-15] MEDS: IPRATROPIUM 0.5MG/ALBUTEROL 2.5MG INH SOL UD 3ML (DUONEB) NEB SCH ×2 (21:28→21:30)
[2022-04-15 21:31] VITALS: O2SAT 92
[2022-04-15 21:57] LABS: RSV AMPLIFICATION NEGATIVE (NEGATIVE)
[2022-04-15] MEDS ORDERED: methylPREDNISolone 125MG 2ML VIAL IV ONE (22:20)
[2022-04-15] MEDS ORDERED: ONDA4TAB6 PO (23:03)
[2022-04-15] MEDS ORDERED: ELIQ2.5T PO (23:03)
[2022-04-15] MEDS ORDERED: MUCI600T31 PO (23:03)
[2022-04-15] MEDS ORDERED: MIDO5TA PO (23:03)
[2022-04-15] MEDS ORDERED: HOME MED LIST COMPLETE! XX SCH (23:05)
[2022-04-15] MEDS ORDERED: ALBUTEROL SULFATE 2.5MG/0.5ML INH NEB SOLN NEB PRN (23:05)
[2022-04-15] MEDS ORDERED: guaiFENesin ER 600 MG TAB PO ONE (23:05)
[2022-04-15] MEDS ORDERED: ACETAMINOPHEN TAB 650MG DOSE (2X325MG) PO PRN (23:05)
[2022-04-15] MEDS ORDERED: GLUCAGON INJ 1MG VIAL SC PRN (23:10)
[2022-04-15] MEDS ORDERED: ONDANSETRON 4MG ORAL DISINTEGRATING TAB PO PRN (23:10)
[2022-04-15] MEDS ORDERED: GLUCOSE 4GM CHEW TABLET PO PRN (23:10)
[2022-04-15] MEDS ORDERED: DEXTROSE 50% 50ML SYRINGE IV PRN (23:10)
[2022-04-15] MEDS ORDERED: (RENVELA) SEVELAMER **CARBONate** 800 MG TAB PO PRN (23:10)
[2022-04-15] MEDS: busPIRone 5 MG TAB PO SCH (23:21)
[2022-04-15] MEDS: APIXABAN 2.5 MG TAB (ELIQUIS) PO SCH (23:21)
[2022-04-16 00:34] VITALS: BP 115/52
[2022-04-16] MEDS: IPRATROPIUM 0.5MG/ALBUTEROL 2.5MG INH SOL UD 3ML (DUONEB) NEB SCH ×4 (01:40→20:00)
[2022-04-16 06:00] VITALS: BP 115/77
[2022-04-16] MEDS: LEVOTHYROXINE 50MCG TABLET (0.05MG) PO SCH (06:20)
[2022-04-16 07:36] LABS: HEMATOCRIT 26.5 % (36.0-47.0); HEMOGLOBIN 8.1 g/dl (12.0-15.5); MEAN CORPUSCULAR HEMOGLOBIN 27.9 pg (27.0-33.0); MEAN CORPUSCULAR HGB CONC 30.6 g/dl (32.0-36.5); MEAN CORPUSCULAR VOLUME 91.4 fl (80.0-96.0); PLATELET COUNT, AUTOMATED 114 10^3/uL (150-450); WHITE BLOOD COUNT 5.5 10^3/uL (4.0-10.0)
[2022-04-16 07:55] LABS: APPEARANCE, BODY FLUID CLEAR (CLEAR); PERITONEAL DIALYSATE FL COLOR COLORLESS (COLORLESS); SOURCE, BODY FLUID PERITONEAL DIALYSATE
[2022-04-16 07:57] LABS: MAGNESIUM LEVEL 1.3 MG/DL (1.8-2.4)
[2022-04-16] MEDS ORDERED: SALMETEROL DISKUS 50MCG INHALER (SEREVENT) INH SCH (08:00)
[2022-04-16] MEDS ORDERED: TIOTROPIUM INHALER/CAPSULE (SPIRIVA) INH SCH (08:00)
[2022-04-16 08:11] LABS: CALCIUM LEVEL 6.3 MG/DL (8.5-10.1); CREATININE FOR GFR 10.94 MG/DL (0.55-1.30); GLOMERULAR FILTRATION RATE 3.8 (>51)
[2022-04-16] MEDS ORDERED: LEVEMIR (INSULIN DETEMIR) 1 UNITS/0.01ML SC SCH ×2 (09:00)
[2022-04-16] MEDS: (RENVELA) SEVELAMER **CARBONate** 800 MG TAB PO SCH ×3 (09:14→17:29)
[2022-04-16] MEDS: INSULIN LISPRO (NovoLOG) PER UNIT SC SCH ×3 (09:14→17:29)
[2022-04-16] MEDS: CETIRIZINE (ZyrTEC) 10 MG TAB PO SCH (09:14)
[2022-04-16] MEDS: OMEPRAZOLE 20MG CAP PO SCH (09:15)
[2022-04-16] MEDS: MIDODRINE 5 MG TAB PO SCH ×3 (09:15→17:28)
[2022-04-16] MEDS: TORSEMIDE 100 MG TAB PO SCH (09:15)
[2022-04-16] MEDS: APIXABAN 2.5 MG TAB (ELIQUIS) PO SCH ×2 (09:15→21:56)
[2022-04-16] MEDS: busPIRone 5 MG TAB PO SCH ×3 (09:15→21:56)
[2022-04-16] MEDS: SENOKOT S TAB PO SCH ×3 (09:15→17:28)
[2022-04-16] MEDS: guaiFENesin ER 600 MG TAB PO SCH ×2 (09:15→21:56)
[2022-04-16] MEDS ORDERED: methylPREDNISolone 125MG 2ML VIAL IV SCH (10:00)
[2022-04-16] MEDS: MAG SULF 1GM/100ML (MAG RUN) 1 GM in IV 1 EA IV SCH ×3 (10:44→12:25)
[2022-04-16] MEDS ORDERED: HumuLIN R (REGULAR) INSULIN (NovoLIN R) **100U/ML** PER UNIT IV STA (11:44)
[2022-04-16] MEDS ORDERED: INSULIN LISPRO (NovoLOG) PER UNIT SC ONE (12:30)
[2022-04-16 13:43] LABS: CALCIUM LEVEL 6.7 MG/DL (8.5-10.1); CREATININE FOR GFR 10.83 MG/DL (0.55-1.30); GLOMERULAR FILTRATION RATE 3.9 (>51)
[2022-04-16 14:00] VITALS: BP 122/49
[2022-04-16] MEDS: FAMOTIDINE 20 MG TAB PO SCH (17:28)
[2022-04-16] MEDS: ROSUVASTATIN 10 MG TAB (CRESTOR) PO SCH (17:28)
[2022-04-16 20:37] VITALS: BP 127/51
[2022-04-16] MEDS: LEVEMIR (INSULIN DETEMIR) 1 UNITS/0.01ML SC ONE (21:57)
[2022-04-17] VITALS (7 sets, daily range): BP systolic 133–156; BP diastolic 64–71
[2022-04-17] MEDS ORDERED: NYSTATIN 100,000 UNITS/GM TOPICAL PWD 15GM TOP PRN (00:25)
[2022-04-17] MEDS: INSULIN LISPRO (NovoLOG) PER UNIT SC SCH ×5 (00:59→18:44)
[2022-04-17] MEDS: IPRATROPIUM 0.5MG/ALBUTEROL 2.5MG INH SOL UD 3ML (DUONEB) NEB SCH ×6 (01:28→23:11)
[2022-04-17 05:46] LABS: HEMATOCRIT 25.4 % (36.0-47.0); HEMOGLOBIN 7.9 g/dl (12.0-15.5); MEAN CORPUSCULAR HEMOGLOBIN 27.4 pg (27.0-33.0); MEAN CORPUSCULAR HGB CONC 31.1 g/dl (32.0-36.5); MEAN CORPUSCULAR VOLUME 88.2 fl (80.0-96.0); PLATELET COUNT, AUTOMATED 155 10^3/uL (150-450); RED BLOOD COUNT 2.88 10^6/uL (4.00-5.40)
[2022-04-17] MEDS ORDERED: HEPARIN SOD (PORCINE) 5000UNITS/ML 1ML VIAL/SYRINGE PD ONE (06:00)
[2022-04-17] MEDS: LEVOTHYROXINE 50MCG TABLET (0.05MG) PO SCH (06:29)
[2022-04-17 06:30] LABS: CALCIUM LEVEL 7.2 MG/DL (8.5-10.1); CREATININE FOR GFR 10.15 MG/DL (0.55-1.30); GLOMERULAR FILTRATION RATE 4.2 (>51); MAGNESIUM LEVEL 1.8 MG/DL (1.8-2.4); POTASSIUM SERUM 3.7 MMOL/L (3.5-5.1)
[2022-04-17] MEDS: APIXABAN 2.5 MG TAB (ELIQUIS) PO SCH ×2 (08:48→21:20)
[2022-04-17] MEDS: OMEPRAZOLE 20MG CAP PO SCH (08:48)
[2022-04-17] MEDS: (RENVELA) SEVELAMER **CARBONate** 800 MG TAB PO SCH ×3 (08:48→17:03)
[2022-04-17] MEDS: busPIRone 5 MG TAB PO SCH ×3 (08:49→21:21)
[2022-04-17] MEDS: CETIRIZINE (ZyrTEC) 10 MG TAB PO SCH (08:49)
[2022-04-17] MEDS: SENOKOT S TAB PO SCH ×3 (08:49→17:03)
[2022-04-17] MEDS: guaiFENesin ER 600 MG TAB PO SCH ×2 (08:49→21:20)
[2022-04-17] MEDS: predniSONE 20 MG TAB PO SCH (08:49)
[2022-04-17] MEDS: TORSEMIDE 100 MG TAB PO SCH (08:49)
[2022-04-17] MEDS: MIDODRINE 5 MG TAB PO SCH ×3 (08:49→16:00)
[2022-04-17] MEDS: LEVEMIR (INSULIN DETEMIR) 1 UNITS/0.01ML SC SCH ×2 (08:50→21:22)
[2022-04-17] MEDS ORDERED: SIMETHICONE 80MG CHEW TAB PO ONE (16:30)
[2022-04-17] MEDS ORDERED: PROMETHAZINE 25MG/ML 1ML VIAL IV ONE (17:00)
[2022-04-17] MEDS: FAMOTIDINE 20 MG TAB PO SCH (17:03)
[2022-04-17] MEDS: ROSUVASTATIN 10 MG TAB (CRESTOR) PO SCH (17:03)
[2022-04-17] MEDS ORDERED: MIDODRINE 5 MG TAB PO PRN (17:05)
[2022-04-17 18:30] LABS: HEMATOCRIT 28.1 % (36.0-47.0); HEMOGLOBIN 8.9 g/dl (12.0-15.5)
[2022-04-17] MEDS: MIRALAX *UNIT DOSE* 17GM PACKET PO SCH (18:44)
[2022-04-17] MEDS: BUDESONIDE 180MCG INHALER (PULMICORT FLEXHALER) INH SCH (19:54)
[2022-04-17] MEDS ORDERED: INSULIN LISPRO (NovoLOG) PER UNIT SC SCH (21:00)
[2022-04-18 04:50] VITALS: BP 148/66
[2022-04-18] MEDS: LEVOTHYROXINE 50MCG TABLET (0.05MG) PO SCH (06:05)
[2022-04-18 06:12] LABS: HEMOGLOBIN 8.6 g/dl (12.0-15.5); MEAN CORPUSCULAR HEMOGLOBIN 28.2 pg (27.0-33.0); MEAN CORPUSCULAR HGB CONC 31.9 g/dl (32.0-36.5); MEAN CORPUSCULAR VOLUME 88.5 fl (80.0-96.0); PLATELET COUNT, AUTOMATED 175 10^3/uL (150-450); RED BLOOD COUNT 3.05 10^6/uL (4.00-5.40); WHITE BLOOD COUNT 7.7 10^3/uL (4.0-10.0)
[2022-04-18 06:42] LABS: MAGNESIUM LEVEL 1.8 MG/DL (1.8-2.4)
[2022-04-18 06:50] LABS: CALCIUM LEVEL 7.2 MG/DL (8.5-10.1); CREATININE FOR GFR 9.55 MG/DL (0.55-1.30); GLOMERULAR FILTRATION RATE 4.5 (>51); POTASSIUM SERUM 3.8 MMOL/L (3.5-5.1)
[2022-04-18] MEDS: IPRATROPIUM 0.5MG/ALBUTEROL 2.5MG INH SOL UD 3ML (DUONEB) NEB SCH ×2 (07:30→11:18)
[2022-04-18] MEDS: BUDESONIDE 180MCG INHALER (PULMICORT FLEXHALER) INH SCH (07:31)
[2022-04-18] MEDS: SENOKOT S TAB PO SCH ×2 (08:12→13:15)
[2022-04-18] MEDS: predniSONE 20 MG TAB PO SCH (08:12)
[2022-04-18] MEDS: busPIRone 5 MG TAB PO SCH (08:12)
[2022-04-18] MEDS: (RENVELA) SEVELAMER **CARBONate** 800 MG TAB PO SCH ×2 (08:12→13:15)
[2022-04-18] MEDS: TORSEMIDE 100 MG TAB PO SCH (08:12)
[2022-04-18] MEDS: guaiFENesin ER 600 MG TAB PO SCH (08:12)
[2022-04-18] MEDS: CETIRIZINE (ZyrTEC) 10 MG TAB PO SCH (08:12)
[2022-04-18] MEDS: APIXABAN 2.5 MG TAB (ELIQUIS) PO SCH (08:12)
[2022-04-18] MEDS: OMEPRAZOLE 20MG CAP PO SCH (08:12)
[2022-04-18] MEDS: LEVEMIR (INSULIN DETEMIR) 1 UNITS/0.01ML SC SCH (08:13)
[2022-04-18] MEDS: MIRALAX *UNIT DOSE* 17GM PACKET PO SCH (08:13)
[2022-04-18] MEDS: INSULIN LISPRO (NovoLOG) PER UNIT SC SCH ×2 (08:13→13:16)
[2022-04-18] MEDS ORDERED: DARBEPOETIN 100MCG/0.5ML *NON-DIALYSIS* SYRINGE SC SCH (09:00)
[2022-04-18] MEDS ORDERED: DARBEPOETIN 100MCG/0.5ML *DIALYSIS* SYRINGE SC SCH (09:00)
[2022-04-18] MEDS ORDERED: BASA100I SC ×2 (10:36→13:00)
[2022-04-18] MEDS ORDERED: PRED20TA PO (10:36)
[2022-04-18] MEDS ORDERED: MIDO5TA PO (13:00)
== END 2022-04-18 14:03 | disposition home or self-care (01) | DRG 190 ==
LOC: M ED 14:25 → M ED INP 23:01 → M MSPAV 04-16 00:28
PROVIDERS: ADMIT Family Medicine; ATTEND Internal Medicine
DX: J44.1 Chronic obstructive pulmonary disease with (acute) exacerbation (principal); N18.6 End stage renal disease; I50.32 Chronic diastolic (congestive) heart failure; J98.11 Atelectasis; I48.20 Chronic atrial fibrillation, unspecified; J96.11 Chronic respiratory failure with hypoxia; E87.1 Hypo-osmolality and hyponatremia; E11.22 Type 2 diabetes mellitus with diabetic chronic kidney disease; K21.9 Gastro-esophageal reflux disease without esophagitis; E11.65 Type 2 diabetes mellitus with hyperglycemia; G47.33 Obstructive sleep apnea (adult) (pediatric); E03.9 Hypothyroidism, unspecified; Z79.01 Long term (current) use of anticoagulants; Z87.891 Personal history of nicotine dependence; Z99.81 Dependence on supplemental oxygen; D63.1 Anemia in chronic kidney disease; E78.5 Hyperlipidemia, unspecified; E83.42 Hypomagnesemia; Z79.899 Other long term (current) drug therapy; Z79.4 Long term (current) use of insulin; Z88.0 Allergy status to penicillin; Z88.6 Allergy status to analgesic agent; Z91.040 Latex allergy status; Z88.2 Allergy status to sulfonamides; I95.89 Other hypotension

== ENCOUNTER 2024-02-15 15:28 | Emergency (ER) | payer MEDICARE, MEDICAID ==
[~2024-02-15] VITALS: Ht 157.5 cm; Wt 126.0 kg
[~2024-02-15 15:28] MED LIST changes: -CRAN400C PO; +CRANBERRY400 MG PO; +ELIQ2.5T PO; -ESOM0.1C PO; +ESOM20CA2 PO; -HM S0.65; -HM S0.65 NARES; -MIDO10TA PO; +MIDO10TA3 PO; -MIRA1POW3 PO; +MIRA33506 PO; +ONDA-282 PO; -OXYB5TAB10 PO; +OXYB5TAB14 PO; -POTA10CA33 PO; +POTA10CA70 PO; +PRED20TA PO; +SALI0.6531; +SALI0.6531 NARES; +SENN-165 PO; +SENN-186 PO; -SENN-80 PO; -SENN18TA PO; -SENN1TAB41 PO; +SENN1TAB85 PO
[2024-02-15 16:02] LABS: BASO % 0.3 % (0.0-1.0); EOS # 0.1 10^3/uL (0.0-0.5); EOS % 0.5 % (0.0-3.0); HEMATOCRIT 29.3 % (36.0-47.0); HEMOGLOBIN 9.4 g/dl (12.0-15.5); LYMPH # 0.6 10^3/uL (1.5-5.0); LYMPH % 4.8 % (24.0-44.0); MEAN CORPUSCULAR HEMOGLOBIN 31.3 pg (27.0-33.0); MEAN CORPUSCULAR HGB CONC 32.1 g/dl (32.0-36.5); MEAN CORPUSCULAR VOLUME 97.7 fl (80.0-96.0); MONO # 0.9 10^3/uL (0.0-0.8); NEUTROPHILS # 11.5 10^3/uL (1.5-8.5); NEUTROPHILS % 86.8 % (36.0-66.0); PLATELET COUNT, AUTOMATED 146 10^3/uL (150-450); WHITE BLOOD COUNT 13.2 10^3/uL (4.0-10.0)
[2024-02-15 16:24] LABS: CK-MB VALUE MASS 3.4 NG/ML (<3.6); LIPASE 54 U/L (12-53)
[2024-02-15 16:26] LABS: CPK CREATINE PHOSPHOKINASE 78 U/L (34-145); MB/CK RELATIVE INDEX 4.35 (< OR =4)
[2024-02-15 16:36] LABS: ALBUMIN 2.5 G/DL (3.2-5.2); ALKALINE PHOSPHATASE 241 U/L (35-104); ALT/SGPT 18 U/L (7.0-40); AST/SGOT < 8 U/L (<34); BILIRUBIN,DIRECT < 0.1 MG/DL (<0.4); BILIRUBIN,TOTAL 0.2 MG/DL (0.3-1.2); BLOOD UREA NITROGEN 74 MG/DL (9-23); CALCIUM LEVEL 7.3 MG/DL (8.3-10.6); CARBON DIOXIDE LEVEL 27 MMOL/L (20-31); CHLORIDE LEVEL 96 MMOL/L (98-107); GLOMERULAR FILTRATION RATE 5.1 (>45); GLUCOSE, FASTING 188 MG/DL (74-106); POTASSIUM SERUM 3.5 MMOL/L (3.5-5.1); SODIUM LEVEL 136 MMOL/L (136-145); TOTAL PROTEIN 6.1 G/DL (5.7-8.2)
[2024-02-15] MEDS: IPRATROPIUM 0.5MG/ALBUTEROL 2.5MG INH SOL UD 3ML (DUONEB) NEB SCH (17:11)
[2024-02-15] MEDS: dexAMETHasone 20MG/5ML VIAL IV ONE (17:58)
[2024-02-15] MEDS ORDERED: PRED10TA2 PO (18:30)
[2024-02-15 18:42] VITALS: BP 130/60; TEMP 98.5; O2SAT 96
== END 2024-02-15 18:48 | disposition home or self-care (01) ==
LOC: M ED 15:28
DX: J44.1 Chronic obstructive pulmonary disease with (acute) exacerbation (principal); J98.11 Atelectasis; I27.20 Pulmonary hypertension, unspecified; Z88.0 Allergy status to penicillin; Z88.2 Allergy status to sulfonamides; Z88.1 Allergy status to other antibiotic agents; Z88.6 Allergy status to analgesic agent; Z91.040 Latex allergy status; I48.91 Unspecified atrial fibrillation; I50.9 Heart failure, unspecified; E11.9 Type 2 diabetes mellitus without complications; Z79.4 Long term (current) use of insulin; G47.33 Obstructive sleep apnea (adult) (pediatric); E66.9 Obesity, unspecified; Z68.43 Body mass index [BMI] 50.0-59.9, adult; N18.9 Chronic kidney disease, unspecified; Z79.01 Long term (current) use of anticoagulants; R94.31 Abnormal electrocardiogram [ECG] [EKG]
CPT/HCPCS: 71045; 80048; 80076; 82550; 82553; 83690; 83880; 84484; 85025; 93005; 94640; 96374; 99284; J1100

== ENCOUNTER 2024-03-02 12:18 | Inpatient (IN) | payer MEDICARE ==
[~2024-03-02] VITALS: Ht 157.5 cm; Wt 124.5 kg
[~2024-03-02 12:18] MED LIST changes: +PRED10TA2 PO
[2024-03-02] MEDS: ONDANSETRON 4MG 2ML VIAL IV ONE (12:45)
[2024-03-02 13:51] LABS: BASO % 0.2 % (0.0-1.0); EOS # 0.1 10^3/uL (0.0-0.5); EOS % 0.4 % (0.0-3.0); HEMATOCRIT 30.9 % (36.0-47.0); HEMOGLOBIN 9.4 g/dl (12.0-15.5); LYMPH # 0.6 10^3/uL (1.5-5.0); MEAN CORPUSCULAR HEMOGLOBIN 30.7 pg (27.0-33.0); MEAN CORPUSCULAR HGB CONC 30.4 g/dl (32.0-36.5); MONO # 0.7 10^3/uL (0.0-0.8); MONO % 5.6 % (2.0-8.0); NEUTROPHILS # 10.3 10^3/uL (1.5-8.5); PLATELET COUNT, AUTOMATED 143 10^3/uL (150-450); RED BLOOD COUNT 3.06 10^6/uL (4.00-5.40); WHITE BLOOD COUNT 11.7 10^3/uL (4.0-10.0)
[2024-03-02 14:07] LABS: LIPASE 32 U/L (12-53)
[2024-03-02 14:28] LABS: ALBUMIN 2.4 G/DL (3.2-5.2); ALKALINE PHOSPHATASE 218 U/L (35-104); ALT/SGPT 10 U/L (7.0-40); AST/SGOT < 8 U/L (<34); BILIRUBIN,DIRECT 0.1 MG/DL (<0.4); BILIRUBIN,TOTAL 0.3 MG/DL (0.3-1.2); BLOOD UREA NITROGEN 61 MG/DL (9-23); CARBON DIOXIDE LEVEL 28 MMOL/L (20-31); CHLORIDE LEVEL 94 MMOL/L (98-107); CREATININE FOR GFR 9.91 MG/DL (0.55-1.30); GLOMERULAR FILTRATION RATE 4.3 (>45); GLUCOSE, FASTING 175 MG/DL (74-106); POTASSIUM SERUM 3.5 MMOL/L (3.5-5.1); SODIUM LEVEL 134 MMOL/L (136-145); TOTAL PROTEIN 6.5 G/DL (5.7-8.2)
[2024-03-02] MEDS ORDERED: VITA100093 PO (18:26)
[2024-03-02] MEDS ORDERED: CINA30TA5 PO (18:26)
[2024-03-02] MEDS ORDERED: TIRZ15PE INJ (18:26)
[2024-03-02] MEDS ORDERED: MULTTAB61 PO (18:26)
[2024-03-02] MEDS ORDERED: MAGN400T2 PO (18:26)
[2024-03-02] MEDS ORDERED: SLOW160T12 PO (18:26)
[2024-03-02] MEDS ORDERED: ROSU20TA86 PO (18:26)
[2024-03-02] MEDS ORDERED: ROCA0.5C PO (18:26)
[2024-03-02] MEDS ORDERED: GLUC500C65 PO (18:26)
[2024-03-02] MEDS ORDERED: HOME MED LIST COMPLETE! XX SCH (18:30)
[2024-03-02] MEDS ORDERED: GLUCAGON INJ 1MG VIAL SC PRN (18:35)
[2024-03-02] MEDS ORDERED: GLUCOSE 4 GM CHEW PO PRN (18:35)
[2024-03-02] MEDS ORDERED: DEXTROSE 50% 50ML SYRINGE IV PRN (18:35)
[2024-03-02] MEDS ORDERED: (RENVELA) SEVELAMER **CARBONate** 800 MG TAB PO PRN (18:35)
[2024-03-02 18:51] LABS: FREE T4 0.89 NG/DL (0.89-1.76)
[2024-03-02 18:52] LABS: THYROID STIMULATING HORMONE 1.891 uIU/ML (0.55-4.78)
[2024-03-02 18:56] LABS: PROCALCITONIN 0.86 ng/ml
[2024-03-02] MEDS ORDERED: PILL CUTTER 1 EACH XX PRN (19:05)
[2024-03-02] MEDS: INSULIN LISPRO (NovoLOG) PER UNIT SC SCH (21:00)
[2024-03-02 21:15] VITALS: BP 98/56; TEMP 97.8; O2SAT 88
[2024-03-02] MEDS: CALCITRIOL 0.25 MCG CAP (S0169) PO SCH (21:27)
[2024-03-02] MEDS: APIXABAN 2.5 MG TAB (ELIQUIS) PO SCH (21:27)
[2024-03-02] MEDS: CINACALCET 30 MG TAB (SENSIPAR) PO SCH (21:28)
[2024-03-02] MEDS: busPIRone 5 MG TAB PO SCH (21:28)
[2024-03-02] MEDS: SENOKOT S TAB PO SCH (21:28)
[2024-03-02] MEDS: guaiFENesin ER TABLET 600 MG TAB PO PRN (21:28)
[2024-03-02] MEDS: VANCOMYCIN/WATER FOR INJ 1,000 MG in IV 1 EA IV SCH (21:40)
[2024-03-02 22:48] VITALS: O2SAT 93
[2024-03-02] MEDS: GENTAMICIN 80 MG in IV 1 EA IV ONE (22:51)
[2024-03-02 23:47] VITALS: O2SAT 80; O2SAT 85
[2024-03-02 23:48] VITALS: O2SAT 94
[2024-03-03] VITALS (25 sets, daily range): BP systolic 84–110; BP diastolic 40–58; TEMP 97.5–98.2; O2SAT 77–99
[2024-03-03] MEDS: LEVOTHYROXINE 50MCG TABLET (0.05MG) PO SCH (05:01)
[2024-03-03] MEDS: MIDODRINE 5 MG TAB PO PRN (05:01)
[2024-03-03] MEDS: IPRATROPIUM 0.5MG/ALBUTEROL 2.5MG INH SOL UD 3ML (DUONEB) INH PRN (05:05)
[2024-03-03 06:25] LABS: HEMATOCRIT 28.1 % (36.0-47.0); HEMOGLOBIN 8.6 g/dl (12.0-15.5); MEAN CORPUSCULAR HEMOGLOBIN 30.8 pg (27.0-33.0); MEAN CORPUSCULAR HGB CONC 30.6 g/dl (32.0-36.5); MEAN CORPUSCULAR VOLUME 100.7 fl (80.0-96.0); PLATELET COUNT, AUTOMATED 119 10^3/uL (150-450); RED BLOOD COUNT 2.79 10^6/uL (4.00-5.40); WHITE BLOOD COUNT 11.6 10^3/uL (4.0-10.0)
[2024-03-03] MEDS: (RENVELA) SEVELAMER **CARBONate** 800 MG TAB PO SCH (06:50)
[2024-03-03 07:06] LABS: ALBUMIN 2.1 G/DL (3.2-5.2); ALKALINE PHOSPHATASE 186 U/L (35-104); ALT/SGPT < 9 U/L (7.0-40); AST/SGOT < 8 U/L (<34); BILIRUBIN,TOTAL 0.2 MG/DL (0.3-1.2); BLOOD UREA NITROGEN 67 MG/DL (9-23); CALCIUM LEVEL 7.4 MG/DL (8.3-10.6); CARBON DIOXIDE LEVEL 26 MMOL/L (20-31); CHLORIDE LEVEL 97 MMOL/L (98-107); CREATININE FOR GFR 10.81 MG/DL (0.55-1.30); GLOMERULAR FILTRATION RATE 3.9 (>45); GLUCOSE, FASTING 174 MG/DL (74-106); POTASSIUM SERUM 3.7 MMOL/L (3.5-5.1); SODIUM LEVEL 135 MMOL/L (136-145); TOTAL PROTEIN 5.6 G/DL (5.7-8.2)
[2024-03-03] MEDS: CETIRIZINE (ZyrTEC) 10 MG TAB PO SCH (08:06)
[2024-03-03] MEDS: VITAMIN D 1,000 INTERNATIONAL UNITS TABLET PO SCH (08:06)
[2024-03-03] MEDS: INSULIN LISPRO (NovoLOG) PER UNIT SC SCH (08:06)
[2024-03-03] MEDS: MAGNESIUM OXIDE 400MG TAB (MAG-OX) PO SCH (08:07)
[2024-03-03] MEDS: ASCORBIC ACID 500 MG TAB PO SCH (08:08)
[2024-03-03] MEDS: FOLIC ACID 1MG TAB PO SCH (08:08)
[2024-03-03] MEDS: metroNIDAZOLE 500 MG in IV 1 EA IV SCH (10:06)
[2024-03-03 13:28] LABS: APPEARANCE, BODY FLUID CLEAR (CLEAR); PERITONEAL FL COLOR COLORLESS (COLORLESS); SOURCE, BODY FLUID PERITONEAL
[2024-03-03] MEDS: FAMOTIDINE 20 MG TAB PO SCH (17:13)
[2024-03-03] MEDS: METOCLOPRAMIDE INJ 10MG/2ML VIAL IV PRN (19:35)
[2024-03-03] MEDS: LevoFLOXacin 750 MG TABLET PO SCH (22:01)
[2024-03-04] VITALS (7 sets, daily range): BP systolic 95–114; BP diastolic 40–71; TEMP 97.5–98.1; O2SAT 88–93
[2024-03-04 05:19] LABS: IONIZED CALCIUM 3.8 MG/DL (4.5-5.3)
[2024-03-04 05:29] LABS: HEMATOCRIT 28.2 % (36.0-47.0); HEMOGLOBIN 8.5 g/dl (12.0-15.5); MEAN CORPUSCULAR HEMOGLOBIN 30.9 pg (27.0-33.0); MEAN CORPUSCULAR HGB CONC 30.1 g/dl (32.0-36.5); MEAN CORPUSCULAR VOLUME 102.5 fl (80.0-96.0); PLATELET COUNT, AUTOMATED 119 10^3/uL (150-450); RED BLOOD COUNT 2.75 10^6/uL (4.00-5.40); WHITE BLOOD COUNT 10.5 10^3/uL (4.0-10.0)
[2024-03-04 05:54] LABS: C REACTIVE PROTEIN QUANTITATIV 9.9 MG/DL (<1.0)
[2024-03-04 06:13] LABS: ALBUMIN 1.9 G/DL (3.2-5.2); CALCIUM LEVEL 7.2 MG/DL (8.3-10.6); CREATININE FOR GFR 10.15 MG/DL (0.55-1.30); GLOMERULAR FILTRATION RATE 4.2 (>45); POTASSIUM SERUM 3.9 MMOL/L (3.5-5.1)
[2024-03-04] MEDS: CALCIUM ACETATE 667MG GELCAP PO SCH (09:23)
[2024-03-04] MEDS ORDERED: ISOVUE-370 76% 100ML VIAL As Ordered ONE (11:58)
[2024-03-04] MEDS: FLUCONAZOLE 50MG TABLET PO ONE (12:33)
[2024-03-04] MEDS: LEVEMIR (INSULIN DETEMIR) 1 UNITS/0.01ML SC SCH (21:13)
[2024-03-05 06:02] LABS: BASO % 0.3 % (0.0-1.0); EOS # 0.2 10^3/uL (0.0-0.5); EOS % 1.5 % (0.0-3.0); HEMATOCRIT 28.9 % (36.0-47.0); HEMOGLOBIN 8.6 g/dl (12.0-15.5); LYMPH # 0.8 10^3/uL (1.5-5.0); MEAN CORPUSCULAR HEMOGLOBIN 30.1 pg (27.0-33.0); MEAN CORPUSCULAR HGB CONC 29.8 g/dl (32.0-36.5); MONO # 0.9 10^3/uL (0.0-0.8); MONO % 8.3 % (2.0-8.0); NEUTROPHILS # 8.9 10^3/uL (1.5-8.5); NEUTROPHILS % 81.9 % (36.0-66.0); PLATELET COUNT, AUTOMATED 123 10^3/uL (150-450); RED BLOOD COUNT 2.86 10^6/uL (4.00-5.40); WHITE BLOOD COUNT 10.9 10^3/uL (4.0-10.0)
[2024-03-05 06:22] LABS: C REACTIVE PROTEIN QUANTITATIV 8.6 MG/DL (<1.0)
[2024-03-05 06:47] LABS: CALCIUM LEVEL 7.9 MG/DL (8.3-10.6); CREATININE FOR GFR 9.97 MG/DL (0.55-1.30); GLOMERULAR FILTRATION RATE 4.2 (>45); POTASSIUM SERUM 3.8 MMOL/L (3.5-5.1)
[2024-03-05 08:00] VITALS: BP 115/49; TEMP 97.5; O2SAT 93
[2024-03-05] MEDS: FLUCONAZOLE 100 MG TAB PO SCH (08:09)
[2024-03-05] MEDS: ACETAMINOPHEN 325 MG TAB PO PRN (08:14)
[2024-03-05 12:00] VITALS: BP 114/46; TEMP 98.1; O2SAT 91
[2024-03-05] MEDS: DARBEPOETIN 100MCG/0.5ML *NON-DIALYSIS* SYRINGE SC SCH (12:58)
[2024-03-05 13:19] VITALS: O2SAT 91
[2024-03-05 20:00] VITALS: BP 108/54; TEMP 97.7; O2SAT 93
[2024-03-06 04:16] VITALS: BP 91/40; TEMP 98.2; O2SAT 93
[2024-03-06 04:30] VITALS: BP 86/38
[2024-03-06 05:59] VITALS: BP 98/44
[2024-03-06 06:20] LABS: BASO % 0.3 % (0.0-1.0); EOS # 0.2 10^3/uL (0.0-0.5); EOS % 1.5 % (0.0-3.0); HEMATOCRIT 28.1 % (36.0-47.0); HEMOGLOBIN 8.3 g/dl (12.0-15.5); LYMPH # 0.7 10^3/uL (1.5-5.0); LYMPH % 5.9 % (24.0-44.0); MEAN CORPUSCULAR HEMOGLOBIN 30.3 pg (27.0-33.0); MEAN CORPUSCULAR HGB CONC 29.5 g/dl (32.0-36.5); MEAN CORPUSCULAR VOLUME 102.6 fl (80.0-96.0); MONO # 0.9 10^3/uL (0.0-0.8); MONO % 7.7 % (2.0-8.0); NEUTROPHILS # 9.7 10^3/uL (1.5-8.5); NEUTROPHILS % 83.5 % (36.0-66.0); PLATELET COUNT, AUTOMATED 140 10^3/uL (150-450); RED BLOOD COUNT 2.74 10^6/uL (4.00-5.40); WHITE BLOOD COUNT 11.7 10^3/uL (4.0-10.0)
[2024-03-06 06:54] LABS: CALCIUM LEVEL 7.7 MG/DL (8.3-10.6); CREATININE FOR GFR 9.6 MG/DL (0.55-1.30); GLOMERULAR FILTRATION RATE 4.4 (>45); PHOSPHORUS LEVEL 5.2 MG/DL (2.4-5.1); POTASSIUM SERUM 3.7 MMOL/L (3.5-5.1)
[2024-03-06 08:19] VITALS: O2SAT 90
[2024-03-06 12:00] VITALS: BP 117/49; TEMP 98.4; O2SAT 95
[2024-03-06] MEDS ORDERED: LEVO75TAB PO (12:01)
[2024-03-06] MEDS ORDERED: CALC1CAP PO (12:01)
[2024-03-06] MEDS: HEPARIN SOD (PORCINE) 5000UNITS/ML 1ML VIAL/SYRINGE PD ONE (18:17)
[2024-03-06 19:36] VITALS: BP 98/46; TEMP 98.2; O2SAT 92
[2024-03-07 04:00] VITALS: BP 112/45; TEMP 97.7; O2SAT 89
[2024-03-07 06:05] LABS: BASO % 0.3 % (0.0-1.0); EOS # 0.2 10^3/uL (0.0-0.5); EOS % 1.9 % (0.0-3.0); HEMATOCRIT 28.9 % (36.0-47.0); HEMOGLOBIN 8.7 g/dl (12.0-15.5); LYMPH % 8.3 % (24.0-44.0); MEAN CORPUSCULAR HEMOGLOBIN 30.7 pg (27.0-33.0); MEAN CORPUSCULAR HGB CONC 30.1 g/dl (32.0-36.5); MEAN CORPUSCULAR VOLUME 102.1 fl (80.0-96.0); MONO % 8.5 % (2.0-8.0); NEUTROPHILS # 9.4 10^3/uL (1.5-8.5); NEUTROPHILS % 79.9 % (36.0-66.0); PLATELET COUNT, AUTOMATED 158 10^3/uL (150-450); RED BLOOD COUNT 2.83 10^6/uL (4.00-5.40); WHITE BLOOD COUNT 11.8 10^3/uL (4.0-10.0)
[2024-03-07 06:27] LABS: C REACTIVE PROTEIN QUANTITATIV 6.6 MG/DL (<1.0)
[2024-03-07 06:40] LABS: CALCIUM LEVEL 7.9 MG/DL (8.3-10.6); CREATININE FOR GFR 9.58 MG/DL (0.55-1.30); GLOMERULAR FILTRATION RATE 4.4 (>45); MAGNESIUM LEVEL 2.1 MG/DL (1.8-2.4); POTASSIUM SERUM 3.8 MMOL/L (3.5-5.1)
[2024-03-07] MEDS ORDERED: DOXYCYCLINE HYCLATE 100MG TABLET PO SCH (09:00)
[2024-03-07] MEDS ORDERED: LINE1TAB6 PO (10:25)
[2024-03-07] MEDS: LINEZOLID 600MG TABLET (ZYVOX) PO SCH (11:44)
== END 2024-03-07 13:29 | disposition home or self-care (01) | DRG 291 ==
LOC: EDBD 12:18 → EDSEX 12:18 → M ED 12:18 → EEVIPCON 17:41 → M ED INP 17:41 → M MSPAV 20:46
PROVIDERS: ADMIT Hospitalist; ATTEND Hospitalist
DX: I50.33 Acute on chronic diastolic (congestive) heart failure (principal); N18.6 End stage renal disease; J18.9 Pneumonia, unspecified organism; R18.8 Other ascites; J96.11 Chronic respiratory failure with hypoxia; I48.92 Unspecified atrial flutter; I48.20 Chronic atrial fibrillation, unspecified; Z68.42 Body mass index [BMI] 45.0-49.9, adult; I44.30 Unspecified atrioventricular block; F39 Unspecified mood [affective] disorder; E11.22 Type 2 diabetes mellitus with diabetic chronic kidney disease; J44.9 Chronic obstructive pulmonary disease, unspecified; E03.9 Hypothyroidism, unspecified; E21.3 Hyperparathyroidism, unspecified; E66.813 Obesity, class 3; I95.89 Other hypotension; E78.5 Hyperlipidemia, unspecified; Z99.81 Dependence on supplemental oxygen; Z88.0 Allergy status to penicillin; Z88.2 Allergy status to sulfonamides; Z88.6 Allergy status to analgesic agent; Z91.040 Latex allergy status; Z88.8 Allergy status to other drugs, medicaments and biological substances; Z79.899 Other long term (current) drug therapy; Z87.891 Personal history of nicotine dependence; D63.1 Anemia in chronic kidney disease; Z79.01 Long term (current) use of anticoagulants